=== PATIENT | female | born 1965 | race Caucasian/White ===

== ENCOUNTER 2016-09-26 16:04 | Emergency (ER) | payer OTHER ==
[2016-09-26] MEDS ORDERED: SODIUM CHLORIDE 0.9% 1000ML 1,000 ML IVS ONE (16:21)
--- NOTE | 2016-09-26 16:28 | ED.PDOC ---
History of Present Illness - General Source: patient Exam Limitations: no limitations - History of Present Illness Initial Comments: the patient is a 51-year-old female presenting to the emergency room secondary to nausea and vomiting and diarrhea since midnight last night. No fevers. She does have some abdominal pain that she believes is from the throwing up. No blood in the stool. Questionable bile in the vomitus. No blood in the stool. Severity: moderate Improving Factors: nothing Worsening Factors: nothing Associated Symptoms: malaise, nausea/vomiting <Narinder Carlos - Last Filed: 09/26/16 19:11> <Sherron Lee - Last Filed: 09/26/16 19:28> - General Time Seen by Provider: 09/26/16 16:20 - History of Present Illness Allergies/Adverse Reactions: Allergies Codeine Allergy (Unknown, Verified 02/04/16 19:58) Home Medications: Ambulatory Orders Klonopin 11/04/15 Lasix 11/04/15 Nexium 11/04/15 Seroquel 11/04/15 Amoxicillin & Pot Clavulanate [Augmentin Tab] 875 mg PO BID #14 tab 02/04/16 Ipratropium/Albuterol Inhaler [Combivent Respimat 20-100 Mcg/Act] 1 puff INH RTQID #1 inh 02/04/16 predniSONE [Prednisone] 20 mg PO DAILY #5 tab 02/04/16 Ondansetron [Zofran Odt] 4 mg PO Q8H PRN #10 tab 09/26/16 Review of Systems - Review of Systems Constitutional: States: malaise EENTM: States: no symptoms reported Respiratory: States: no symptoms reported Cardiology: States: no symptoms reported Gastrointestinal/Abdominal: States: see HPI Genitourinary: States: dysuria, frequency Musculoskeletal: States: no symptoms reported Skin: States: no symptoms reported Neurological: States: anxiety Endocrine: States: no symptoms reported All other Systems: No Change from Baseline <Narinder Carlos - Last Filed: 09/26/16 19:11> Past Medical History (General) - Patient Medical History Hx Seizures: Yes Hx Stroke: No Hx Dementia: No Hx Asthma: No Hx of COPD: No Hx Cardiac Disorders: Yes Hx Congestive Heart Failure: No Hx Pacemaker: No Hx Hypertension: No Hx Thyroid Disease: No Hx Diabetes: No Hx Gastroesophageal Reflux: Yes Hx Renal Disease: No Hx Cancer: No Hx of HIV: No Hx Hepatitis C: No Hx MRSA: No - Vaccination History Hx Tetanus, Diphtheria Vaccination: No Hx Influenza Vaccination: No Hx Pneumococcal Vaccination: No - Social History Hx Tobacco Use: Yes Hx Chewing Tobacco Use: No Hx Alcohol Use: No Hx Substance Use: No Hx Substance Use Treatment: No Hx Depression: Yes Hx Physical Abuse: No Hx Emotional Abuse: No Hx Suspected Abuse: No - Female History Patient : No <Narinder Carlos - Last Filed: 09/26/16 19:11> Family Medical History - Family History Mother Family History: Unknown <Narinder Carlos - Last Filed: 09/26/16 19:11> Physical Exam - Physical Exam General Appearance: Alert, No apparent distress, Other - disheveled Eye Exam: bilateral normal Ears, Nose, Throat: hearing grossly normal, normal ENT inspection - poor dentition Neck: non-tender, full range of motion, supple Respiratory: chest non-tender, lungs clear, normal breath sounds, no respiratory distress, no accessory muscle use Cardiovascular/Chest: normal peripheral pulses, regular rate, rhythm, no edema Peripheral Pulses: radial,right: 2+, radial,left: 2+, dorsalis pedis,right: 2+, dorsalis pedis,left: 2+ Gastrointestinal/Abdominal: other - see history of present illness. Bowel sounds are present. Rectal Exam: deferred Back Exam: normal inspection, no CVA tenderness, no vertebral tenderness Extremity: normal range of motion, non-tender, normal inspection, no pedal edema , normal capillary refill Neurologic: alert, oriented x 3 Skin Exam: normal color <Narinder Carlos - Last Filed: 09/26/16 19:11> Departure - Departure Time of Disposition: 19:12 <Narinder Carlos - Last Filed: 09/26/16 19:11> - Departure Time of Disposition: 19:26 Diet: bland diet <Sherron Lee - Last Filed: 09/26/16 19:28> - Departure Clinical Impression: Gastroenteritis Disposition: Discharge to Home or Self Care Condition: Fair Departure Forms: ED Discharge - Pt. Copy, Patient Portal Self Enrollment Instructions: Viral Gastroenteritis, DI for Viral Gastroenteritis -- Adult, Gastroenteritis Diet Referrals: LITA HAMMOND [Primary Care Provider] - 1-2 Weeks Prescriptions: Ondansetron [Zofran Odt] 4 mg PO Q8H PRN #10 tab PRN Reason: Nausea/Vomiting Home Medications: Ambulatory Orders Klonopin 11/04/15 Lasix 11/04/15 Nexium 11/04/15 Seroquel 11/04/15 Amoxicillin & Pot Clavulanate [Augmentin Tab] 875 mg PO BID #14 tab 02/04/16 Ipratropium/Albuterol Inhaler [Combivent Respimat 20-100 Mcg/Act] 1 puff INH RTQID #1 inh 02/04/16 predniSONE [Prednisone] 20 mg PO DAILY #5 tab 02/04/16 Ondansetron [Zofran Odt] 4 mg PO Q8H PRN #10 tab 09/26/16 Additional Instructions: Follow up with PCP if symptoms persist or ED if symptoms worsen. Stay well- hydrated.
[2016-09-26] MEDS ORDERED: ONDANSETRON ODT 8 MG TAB SL SCH (16:30)
--- NOTE | 2016-09-26 16:55 | RAD ---
PROCEDURE: Chest one view and abdomen three views Clinical History: abd pain, n/v Indication: Same as above Comparison: Chest x-ray done on 10/02/2015 Technique: 3.0 views of the abdomen and pelvis and 1.0 views of the chest were done. Findings: There is no gross evidence of free air in the abdomen or the pelvis . The small and large bowel gas pattern does not show any evidence of obstruction, ileus or bowel wall thickening. There is no visualization of radiopaque calculi in the outline of the urinary tract. There is no constipation. Surgical ruddy are seen in the pelvis There are no airspace infiltrates, pleural effusions or pneumothoraces. The cardiac mediastinal silhouette is unremarkable. Impression: There are no acute or significant findings in the chest, abdomen and pelvis Location of Interpretation: [id number] Electronically signed by: Liam Linton MD 09/26/2016 4:55 PM [employer]
--- NOTE | 2016-09-26 18:25 | CT ---
EXAM DESCRIPTION: CT Abdomen/Pelvis w/Contrast CLINICAL HISTORY: abd pain/n/v COMPARISON: None Available TECHNIQUE: Contiguous axial images of the abdomen and pelvis were obtained after the administration of intravenous contrast followed by reconstruction images. FINDINGS: Linear opacities within the lung bases may represent scar versus subsegmental atelectasis. Patient is status post cholecystectomy. Small amount of air within the biliary system not unusual after cholecystectomy. Nodular contour of the liver suggests underlying cirrhotic changes. Spleen measures approximately 14.5 cm in length. Appendix was not visualized with certainty, there is no pericecal inflammation. Calcifications within the pelvis compatible with phleboliths. Prominent fatty changes within the mucosa of the ascending colon/cecum suggests prior infectious or inflammatory process. The liver, spleen, pancreas and kidneys are otherwise within normal limits. There is no hydronephrosis or renal stones. Adrenal glands are within normal limits. Aorta is of normal caliber and tapering. There is no free fluid in the abdomen or pelvis. There is no bowel obstruction. There is no stranding of the mesenteric fat to suggest an inflammatory response. IMPRESSION: No acute intra-abdominal abnormality. Nodular contour of the hepatic parenchyma suggests underlying cirrhosis changes. Electronically signed by: Yuriy Raya MD 09/26/2016 6:24 PM [employer]
[2016-09-26 19:54] VITALS: BP 120/70; TEMP 99.1; O2SAT 99
== END 2016-09-26 19:55 | disposition home or self-care (01) ==
LOC: ER 16:04
DX: K52.9 Noninfective gastroenteritis and colitis, unspecified (principal); K21.9 Gastro-esophageal reflux disease without esophagitis; Z88.6 Allergy status to analgesic agent; Z79.899 Other long term (current) drug therapy; Z87.891 Personal history of nicotine dependence
CPT/HCPCS: 36415; 74020; 74177; 80053; 81001; 81025; 82150; 82550; 82553; 83605; 83690; 83880; 84484; 85025; 85610; 85730; 87502; J7030

== ENCOUNTER 2016-10-20 16:50 | Emergency (ER) | payer OTHER ==
[2016-10-20] MEDS ORDERED: MORPHINE SULFATE INJ 10 MG/ML VIAL IV ONE (17:00)
[2016-10-20] MEDS ORDERED: ONDANSETRON INJ 4 MG/2 ML VIAL IV ONE (17:00)
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
[2016-10-20] MEDS ORDERED: HYDROmorphone HCL INJ 2 MG/ML VIAL IV ONE (18:09)
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
[2016-10-20] MEDS ORDERED: SODIUM CHLORIDE 0.9% 1000ML 1,000 ML ONE (19:22)
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
[2016-10-20 19:42] VITALS: BP 143/83; TEMP 97.3; O2SAT 99
== END 2016-10-20 19:42 | disposition short-term general hospital (02) ==
LOC: ER 16:50
DX: S42.301A Unspecified fracture of shaft of humerus, right arm, initial encounter for closed fracture (principal); S52.301A Unspecified fracture of shaft of right radius, initial encounter for closed fracture; S52.201A Unspecified fracture of shaft of right ulna, initial encounter for closed fracture; S52.501A Unspecified fracture of the lower end of right radius, initial encounter for closed fracture; S00.83XA Contusion of other part of head, initial encounter; S00.81XA Abrasion of other part of head, initial encounter; I51.89 Other ill-defined heart diseases; K21.9 Gastro-esophageal reflux disease without esophagitis; Z79.899 Other long term (current) drug therapy; Z88.6 Allergy status to analgesic agent; Z87.891 Personal history of nicotine dependence; V49.50XA Passenger injured in collision with unspecified motor vehicles in traffic accident, initial encounter; Y92.410 Unspecified street and highway as the place of occurrence of the external cause
CPT/HCPCS: 70150; 72040; 72125; 73060; 73090; 73130; 80053; 81001; 85025; J1170; J2270; J2405; J7030

== ENCOUNTER 2016-11-05 23:17 | Emergency (ER) | payer OTHER ==
[2016-11-05 23:36] VITALS: TEMP 98.4
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
--- NOTE | 2016-11-06 00:46 | RAD ---
EXAM: Chest,1 View CLINICAL INDICATION: 51-year-old female with cough. TECHNIQUE: Single view, AP portable chest was obtained. COMPARISON: 02/04/2016. FINDINGS: Stable cardiac and mediastinal silhouette. Heart size is normal. Little volumes grossly clear without focal opacity, pneumothorax or pleural effusions. The visualized bones are within normal limits. IMPRESSION: No acute cardiopulmonary abnormalities. Electronically signed by: Shanice Nagy MD 11/06/2016 12:46 AM CDT
--- NOTE | 2016-11-06 01:14 | CT ---
EXAM DESCRIPTION: Lumbar Spine 11/06/2016 1:12 AM CDT CLINICAL HISTORY: 51 years, Female, pain COMPARISON: None TECHNIQUE: Volumetric CT acquisition was performed through the lumbar spine. Images in the axial, coronal, and sagittal planes were presented for interpretation. This exam was performed according to our departmental dose-optimization program, which includes automated exposure control, adjustment of the mA and/or kV according to patient size and/or use of iterative reconstruction technique. FINDINGS: There are 5 lumbar type vertebral bodies in normal anatomic alignment. There is no evidence of acute fracture or dislocation. There are no significant degenerative changes. At the L1/L2 level, there is normal disk space height, there is no significant canal or neuroforaminal narrowing. At the L2/L3 level, there is normal disk space height, there is no significant canal or neuroforaminal narrowing. At the L3/L4 level, there is normal disk space height, there is no significant canal or neuroforaminal narrowing. At the L4/L5 level, there is normal disk space height, there is no significant canal or neuroforaminal narrowing. At the L5/S1 level, there is normal disk space height, there is no significant canal or neuroforaminal narrowing. The paravertebral and prevertebral soft tissues are normal. The visualized soft tissue structures of the abdomen are normal. The visualized vasculature is normal. IMPRESSION: No acute fracture or dislocation of the lumbar spine. Electronically signed by: Antonio Ragsdale MD 11/06/2016 1:13 AM CDT
--- NOTE | 2016-11-06 01:31 | CT ---
EXAM DESCRIPTION: Pelvis11/06/2016 1:28 AM CDT CLINICAL HISTORY: 51 years, Female, fall COMPARISON: None. TECHNIQUE: Volumetric CT acquisition was performed through the pelvis. Images in the axial and coronal planes were presented for interpretation This exam was performed according to our departmental dose-optimization program, which includes automated exposure control, adjustment of the mA and/or kV according to patient size and/or use of iterative reconstruction technique. FINDINGS: There is no acute fracture or dislocation of the bony pelvis or proximal femurs. There is a moderate amount of free pelvic fluid in the pelvis best seen on axial image 29 above the level of the urinary bladder. Fluid has density characteristics of simple fluid. The visualized portions of the large and small bowel are normal in appearance. The bladder and rectum are normal in appearance. The uterus and ovaries are age-appropriate. The soft tissue structures of the abdominal wall are normal. The visualized vasculature is grossly normal in appearance.. Limited evaluation of the venous structures demonstrates no gross abnormalities. IMPRESSION: 1. No acute fracture or dislocation of the bony pelvis. 2. Moderate free pelvic fluid. Electronically signed by: Antonio Ragsdale MD 11/06/2016 1:30 AM CDT
[2016-11-06] MEDS ORDERED: PANTOPRAZOLE INJECTION 80 MG in SODIUM CHLORIDE 0.9% 100ML 80 ML IVPB ONE (03:03)
[2016-11-06] MEDS ORDERED: MINERAL OIL 133 ML BTTL PR ONE (03:04)
[2016-11-06] MEDS ORDERED: BISACODYL SUPPOSITORY 10 MG PR ONE (03:04)
[2016-11-06] MEDS ORDERED: PANTOPRAZOLE SODIUM IV 40 MG VIAL ONE (03:07)
[2016-11-06] MEDS ORDERED: SODIUM CHLORIDE 0.9% 100ML 100 ML IVPB ONE (03:08)
[2016-11-06 04:02] VITALS: O2SAT 95
[2016-11-06 05:14] VITALS: BP 132/76
== END 2016-11-06 05:05 | disposition short-term general hospital (02) ==
LOC: ER 23:17
DX: D50.0 Iron deficiency anemia secondary to blood loss (chronic) (principal); D69.6 Thrombocytopenia, unspecified; D70.9 Neutropenia, unspecified; R79.89 Other specified abnormal findings of blood chemistry; F31.9 Bipolar disorder, unspecified; Z88.6 Allergy status to analgesic agent; Z79.899 Other long term (current) drug therapy; Z87.891 Personal history of nicotine dependence; W01.198A Fall on same level from slipping, tripping and stumbling with subsequent striking against other object, initial encounter
CPT/HCPCS: 36415; 71010; 72131; 72192; 80053; 81001; 82270; 83880; 85025; 85379; J7050

== ENCOUNTER 2016-11-23 22:57 | Emergency (ER) | payer OTHER ==
[2016-11-23 23:31] VITALS: O2SAT 98
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
--- NOTE | 2016-11-24 01:22 | CT ---
EXAM: CT neck with contrast. INDICATION: Neck pain. TECHNIQUE: Contiguous axial CT images of the neck. Intravenous contrast: Present. DLP 349 mGy-cm. This exam was performed according to our departmental dose-optimization program, which includes automated exposure control, adjustment of the mA and/or kV according to patient size and/or use of iterative reconstruction technique. COMPARISON: None. FINDINGS: Glands: Thyroid: Unremarkable. Submandibular: Unremarkable. Parotid: Unremarkable. [place] tonsils: Unremarkable. Parapharyngeal fat: No displacement. Epiglottis: Unremarkable. Turbine Subassembler space: Unremarkable. Prevertebral space: No edema. Vascular structures: Unremarkable. Bones: Unremarkable. IMPRESSION: 1. Unremarkable CT of the neck. Electronically signed by: Ishan Connell MD 11/24/2016 1:21 AM CDT
[2016-11-24] MEDS ORDERED: KETOROLAC TROMETHAMINE INJ 30 MG/ML VIAL IV ONE (01:25)
[2016-11-24] MEDS ORDERED: ORPHENADRINE CITRATE 30 MG/ML AMP IV ONE (01:25)
[2016-11-24 02:03] VITALS: BP 137/64; TEMP 97.8
== END 2016-11-24 01:35 | disposition home or self-care (01) ==
LOC: ER 22:57
DX: M54.2 Cervicalgia (principal); M62.838 Other muscle spasm; K21.9 Gastro-esophageal reflux disease without esophagitis; Z88.6 Allergy status to analgesic agent; Z79.899 Other long term (current) drug therapy; Z87.891 Personal history of nicotine dependence
CPT/HCPCS: 36415; 70491; 72125; 82565; 84520; J1885; J2360

== ENCOUNTER 2016-11-26 09:36 | Emergency (ER) | payer OTHER ==
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
[2016-11-26 10:05] VITALS: TEMP 99.5; O2SAT 100
[2016-11-26 10:23] VITALS: BP 106/64
== END 2016-11-26 10:21 | disposition home or self-care (01) ==
LOC: ER 09:36
DX: S52.201D Unspecified fracture of shaft of right ulna, subsequent encounter for closed fracture with routine healing (principal); K21.9 Gastro-esophageal reflux disease without esophagitis; Z88.6 Allergy status to analgesic agent; Z87.891 Personal history of nicotine dependence; X58.XXXD Exposure to other specified factors, subsequent encounter

== ENCOUNTER 2017-03-01 20:51 | Emergency (ER) | payer OTHER ==
[2017-03-01 21:09] VITALS: TEMP 98.5
[2017-03-01] MEDS ORDERED: MORPHINE SULFATE INJ 10 MG/ML VIAL IM ONE (21:53)
[2017-03-01] MEDS ORDERED: ONDANSETRON ODT 8 MG TAB SL PRN (21:53)
--- NOTE | 2017-03-01 21:57 | ED.PDOC ---
History of Present Illness - General Chief Complaint: Upper Extremity Injury Stated Complaint: rt arm pain Time Seen by Provider: 03/01/17 21:52 Source: patient Exam Limitations: no limitations Additional Information: PT WITH HX ORIF TO RIGHT FOREARM. STATES IT'S NOT HEALING WELL. TRIED TO GET UP OFF TOILET TODAY AND SLIPPED, C/O SEVERE PAIN TO R FOREARM. - History of Present Illness Initial Comments: HAS APPT WITH ORTHO TOMORROW, STATES SHE COULD NOT WAIT. Occurred: just prior to arrival Pain - Upper Extremity: moderate: Forearm, right Improving Factors: nothing Worsening Factors: movement Allergies/Adverse Reactions: Allergies Codeine Allergy (Unknown, Verified 11/23/16 23:31) Home Medications: Ambulatory Orders Klonopin 11/04/15 Lasix 11/04/15 Nexium 11/04/15 Seroquel 11/04/15 Ipratropium/Albuterol Inhaler [Combivent Respimat 20-100 Mcg/Act] 1 puff INH RTQID #1 inh 02/04/16 Ondansetron [Zofran Odt] 4 mg PO Q8H PRN #10 tab 09/26/16 tiZANidine [Zanaflex] 4 mg PO TID PRN #30 tab 11/24/16 Review of Systems - Review of Systems Constitutional: Denies: chills, fever EENTM: States: no symptoms reported Musculoskeletal: States: other - PAIN TO R FOREARM. Denies: back pain, neck pain Skin: States: no symptoms reported Neurological: Denies: numbness, weakness Past Medical History (General) - Patient Medical History Hx Seizures: Yes Hx Stroke: No Hx Dementia: No Hx Asthma: No Hx of COPD: No Hx Cardiac Disorders: Yes Hx Congestive Heart Failure: No Hx Pacemaker: No Hx Hypertension: No Hx Thyroid Disease: No Hx Diabetes: No Hx Gastroesophageal Reflux: Yes Hx Renal Disease: No Hx Cancer: No Hx of HIV: No Hx Hepatitis C: No Hx MRSA: No Hx Other - free text: BIPOLAR Surgical History: Hysterectomy - Vaccination History Hx Tetanus, Diphtheria Vaccination: Yes Hx Influenza Vaccination: No Hx Pneumococcal Vaccination: No - Social History Hx Tobacco Use: Yes Hx Chewing Tobacco Use: No Hx Alcohol Use: No Hx Substance Use: No Hx Substance Use Treatment: No Hx Depression: No Hx Physical Abuse: No Hx Emotional Abuse: No Hx Suspected Abuse: No - Female History Patient is a Female of Child Bearing Age (10 -59 yrs old): No Patient : No Family Medical History - Family History Mother Family History: Unknown Hx Cardiac Disease: Yes - mom Hx Family;Other: bipolar disorder mom Physical Exam - Physical Exam General Appearance: Anxious, Obvious distress - DTP, Obese Eyes, Ears, Nose, Throat Exam: PERRL/EOMI, normal ENT inspection Back Exam: no vertebral tenderness Elbow/Forearm Exam: pain - FOREARM WITH SURGICAL INCISION VENTRAL SURFACE. TTP DISTAL FOREARM. NVI, NO DEFORMITY Wrist Exam: normal inspection, non-tender Hand Exam: normal inspection, non-tender 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, oriented x 3 Skin Exam: other - DIFFUSE PSORIASIS, NO ACUTE ABN Progress - EKG/XRAY/CT XRAY: forearm - ORIF. NO EVIDENCE FOR HARDWARE DISRUPTION. NO ACUTE FX. Departure - Departure Clinical Impression: Contusion of forearm, right Qualifiers: Encounter type: initial encounter Qualified Code(s): S50.11XA - Contusion of right forearm, initial encounter Time of Disposition: 22:24 Disposition: Discharge to Home or Self Care Condition: Good Departure Forms: ED Discharge - Pt. Copy, Patient Portal Self Enrollment Instructions: Contusion Referrals: LITA HAMMOND [Primary Care Provider] - 1-2 Weeks Home Medications: Ambulatory Orders Klonopin 11/04/15 Lasix 11/04/15 Nexium 11/04/15 Seroquel 11/04/15 Ipratropium/Albuterol Inhaler [Combivent Respimat 20-100 Mcg/Act] 1 puff INH RTQID #1 inh 02/04/16 Ondansetron [Zofran Odt] 4 mg PO Q8H PRN #10 tab 09/26/16 tiZANidine [Zanaflex] 4 mg PO TID PRN #30 tab 11/24/16
--- NOTE | 2017-03-01 22:19 | RAD ---
EXAM DESCRIPTION: Forearm,Right CLINICAL HISTORY: 51 years Female PAIN AFTER SLIPPING COMPARISON: None. TECHNIQUE: RIGHT forearm, two views FINDINGS: There is significant bony demineralization. There is plate and screw fixation of the midshaft of the radial and ulnar diaphyses as well as plate and screw fixation of the distal radius. Midshaft fractures are incompletely healed. No apparent complication of the hardware. IMPRESSION: Marked bony demineralization without evidence of acute fracture Previous ORIF of the radius and ulna. Midshaft fractures appears incompletely healed Electronically signed by: Joanne Navas 03/01/2017 10:18 PM CDT
[2017-03-01 22:33] VITALS: BP 133/79; O2SAT 94
== END 2017-03-01 22:34 | disposition home or self-care (01) ==
LOC: ER 20:51
DX: S50.11XA Contusion of right forearm, initial encounter (principal); Z88.6 Allergy status to analgesic agent; K21.9 Gastro-esophageal reflux disease without esophagitis; F31.9 Bipolar disorder, unspecified; I51.89 Other ill-defined heart diseases; Z87.891 Personal history of nicotine dependence; W18.11XA Fall from or off toilet without subsequent striking against object, initial encounter
CPT/HCPCS: 73090; J2270

== ENCOUNTER 2017-04-26 13:39 | Emergency (ER) | payer OTHER ==
[2017-04-26 13:53] VITALS: TEMP 97.8
[2017-04-26] MEDS ORDERED: MORPHINE SULFATE INJ 10 MG/ML VIAL IV ONE ×2 (14:06→16:03)
--- NOTE | 2017-04-26 14:10 | ED.PDOC ---
History of Present Illness - General Chief Complaint: Trauma Stated Complaint: fall Time Seen by Provider: 04/26/17 13:55 - History of Present Illness Initial Comments: PT IS ALLERGIC TO CODEINE BUT NOT TO MORPHINE OR OTHER OPIATES. PT FELL TODAY (SLIPPED, TRIPPED) AND LANDED ON RUE. PAIN IN R SHOULDER, ARM, ELBOW, WRIST. PT STATES SHE FRACTURED RUE 6 MOS AGO. Occurred: just prior to arrival Severity: severe Pain Location: upper extremity Method of Injury: fall Improving Factors: nothing Worsening Factors: movement Loss of Consciousness: no loss of consciousness Associated Symptoms (Fall): denies symptoms Allergies/Adverse Reactions: Allergies Codeine Allergy (Unknown, Verified 04/26/17 13:53) Home Medications: Ambulatory Orders Klonopin 11/04/15 Lasix 11/04/15 Nexium 11/04/15 Seroquel 11/04/15 Ipratropium/Albuterol Inhaler [Combivent Respimat 20-100 Mcg/Act] 1 puff INH RTQID #1 inh 02/04/16 Ondansetron [Zofran Odt] 4 mg PO Q8H PRN #10 tab 09/26/16 tiZANidine [Zanaflex] 4 mg PO TID PRN #30 tab 11/24/16 Review of Systems - Review of Systems Constitutional: States: no symptoms reported EENTM: States: no symptoms reported Respiratory: States: no symptoms reported Cardiology: States: no symptoms reported Gastrointestinal/Abdominal: States: no symptoms reported Genitourinary: States: no symptoms reported Musculoskeletal: States: joint pain. Denies: back pain, muscle pain, neck pain Skin: States: no symptoms reported Neurological: States: no symptoms reported. Denies: headache Endocrine: States: no symptoms reported Hematologic/Lymphatic: States: no symptoms reported All other Systems: Reviewed and Negative Past Medical History (General) - Patient Medical History Hx Seizures: Yes Hx Stroke: No Hx Dementia: No Hx Asthma: No Hx of COPD: No Hx Cardiac Disorders: Yes Hx Congestive Heart Failure: No Hx Pacemaker: No Hx Hypertension: No Hx Thyroid Disease: No Hx Diabetes: No Hx Gastroesophageal Reflux: Yes Hx Renal Disease: No Hx Cancer: No Hx of HIV: No Hx Hepatitis C: No Hx MRSA: No Surgical History: other - Vaccination History Hx Tetanus, Diphtheria Vaccination: Yes Hx Influenza Vaccination: No Hx Pneumococcal Vaccination: No - Social History Hx Tobacco Use: Yes Hx Chewing Tobacco Use: No Hx Alcohol Use: No Hx Substance Use: No Hx Substance Use Treatment: No Hx Depression: No Hx Physical Abuse: No Hx Emotional Abuse: No Hx Suspected Abuse: No - Female History Patient is a Female of Child Bearing Age (10 -59 yrs old): Yes Patient : No Family Medical History - Family History Mother Family History: Unknown Hx Cardiac Disease: Yes - mom Hx Family;Other: bipolar disorder mom Physical Exam - Physical Exam General Appearance: Alert, Other - UNCOMFORTABLE Head Injury: no evidence of injury Eye Exam: bilateral normal ENT Exam: hearing grossly normal, no evidence of ENT injury, no dental injury Neck Exam: non-tender, full range of motion, normal alignment, normal inspection Cardiovascular/Respiratory: regular rate, rhythm, no M/R/G Gastrointestinal/Abdominal: normal bowel sounds, non tender, soft Back Exam: no CVA tenderness, no vertebral tenderness Extremity Exam: pelvis stable, bony-point tenderness, pain with movement, other - RUE TTP AND PAINFUL MVMT IN SHOULDER, HUMERUS, ELBOW, WRIST. FOREARM AND HAND EXAM NL. Neurologic: ext js developer II-XII nml as tested, alert, normal mood/affect Skin Exam: normal color, warm/dry Progress - Progress Progress: 04/26/17 16:04 XRAYS NEG FOR ACUTE FRX. PT SAW HER ORTHE YESTERDAY(DR ESCALONA IN [place] ) AND PLAN WAS TO LEAVE MALUNION IS. 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 I SPOKE WITH PT AND HER FAMILY. THEY ARE GOING TO CALL DR ESCALONA TO INFORM HIM OF FALL BUT NO FRX. SHE HAS F/U APPT IN 3 MOS BUT WILL CALL IN 1 WEEK FOR SOONER F/U IF STILL HAVING PAIN. 04/26/17 16:07 Departure - Departure Clinical Impression: Contusion of bone, Arm pain Disposition: Discharge to Home or Self Care Condition: Good Departure Forms: ED Discharge - Pt. Copy, Patient Portal Self Enrollment Instructions: DI for Trauma Diet: resume usual diet Activity: increase activity as tolerated Referrals: LITA HAMMOND [Primary Care Provider] - 1-2 Weeks Home Medications: Ambulatory Orders Klonopin 11/04/15 Lasix 11/04/15 Nexium 11/04/15 Seroquel 11/04/15 Ipratropium/Albuterol Inhaler [Combivent Respimat 20-100 Mcg/Act] 1 puff INH RTQID #1 inh 02/04/16 Ondansetron [Zofran Odt] 4 mg PO Q8H PRN #10 tab 09/26/16 tiZANidine [Zanaflex] 4 mg PO TID PRN #30 tab 11/24/16 Additional Instructions: You did not break your arm. It is just badly bruised. Please take ibuprofen as needed for pain.
--- NOTE | 2017-04-26 14:40 | RAD ---
EXAM DESCRIPTION: Wrist,Right 2 Views CLINICAL HISTORY: FALL; PAIN IN R SHOULDER, ARM, ELBOW, WRIST. COMPARISON: October 20, 2016 IMPRESSION: 3 views of the right wrist show interval volar plate and screw fixation of the distal radius. No hardware failure or obvious loosening is seen. There is at least partial healed fracture of the distal radius. The osseous structures are diffusely osteopenic. Partly visualized plate and screw fixation of the mid ulna and radius is seen with question of nonunion of the radial fracture. There is a partly healed fracture at the base of the first metacarpal compared to previous exam. Electronically signed by: Samuel Mckeon MD 04/26/2017 2:39 PM CDT
--- NOTE | 2017-04-26 14:43 | RAD ---
EXAM DESCRIPTION: Elbow,Right 2 Views CLINICAL HISTORY: FALL; PAIN IN R SHOULDER, ARM, ELBOW, WRIST. COMPARISON: None Available. TECHNIQUE: Two views FINDINGS: Mild degenerative changes and moderate osteopenia of the elbow is present without fracture or dislocation. The mid forearm is internally fixed with sideplates with an incompletely healed fracture of the radial shaft and what appears to be a more completely healed fracture of the ulnar shaft. No elbow injury is identified and no joint effusion noted. IMPRESSION: 1. Osteopenia and degenerative changes of the elbow. Electronically signed by: Chencho Bates MD 04/26/2017 2:42 PM CDT
--- NOTE | 2017-04-26 15:11 | RAD ---
Two-view right humerus. Two-view right shoulder. Indication: FALL; PAIN IN R SHOULDER, ARM, ELBOW, WRIST. Comparison: None. Pression: A.C. and glenohumeral joint alignment grossly normal. Lateral downsloping acromion. Osteopenia. A subacute to chronic appearing largely ununited mid humeral shaft fracture noted with peripheral callus formation but central lucency and sclerotic fracture margins. There is malalignment/angulation of the fracture site but is difficult to characterize due to patient positioning. There appears to be ulnar deviation of the distal fracture fragment. Partial visualization of a radial shaft fracture status post ORIF but appears incompletely united. Electronically signed by: Derek Eric MD 04/26/2017 3:10 PM CDT
[2017-04-26 16:32] VITALS: BP 126/87; O2SAT 97
== END 2017-04-26 16:33 | disposition home or self-care (01) ==
LOC: ER 13:39
DX: M25.511 Pain in right shoulder (principal); Z87.891 Personal history of nicotine dependence; W01.0XXA Fall on same level from slipping, tripping and stumbling without subsequent striking against object, initial encounter; Y92.9 Unspecified place or not applicable
CPT/HCPCS: 73030; 73060; 73070; 73100; J2270

== ENCOUNTER 2017-09-10 11:29 | Emergency (ER) | payer OTHER, SELFPAY ==
[2017-09-10 11:34] VITALS: TEMP 97.9
--- NOTE | 2017-09-10 12:44 | ED.PDOC ---
History of Present Illness - General Chief Complaint: Trauma Stated Complaint: Fall, c/o R arm/L knee discomfort Time Seen by Provider: 09/10/17 12:24 Source: patient Exam Limitations: no limitations - History of Present Illness Initial Comments: Lucina Ngo 52 y/o female brought by EMS after falling off stairs -stating went to school watch her son play basketball then got up to use the rest room as she was going down the stairs she slipped /stumbled then rolled down the stairs head hitting the metal railing on landint to the floor.Stated helped by ems to get up on theier arrival.Schafer painful knot on forehead ,right arm and also achy on the sides of neck after the incident.No LOC,no blurry vision, no nausea/ vomiting nohip,chest wall or back pains. Occurred: just prior to arrival Severity: moderate Pain Location: head, neck, upper extremity - right forearm Method of Injury: fall Improving Factors: nothing Worsening Factors: movement Loss of Consciousness: no loss of consciousness Associated Symptoms (Fall): other - see hpi Allergies/Adverse Reactions: Allergies Codeine Allergy (Unknown, Verified 09/10/17 11:41) Home Medications: Ambulatory Orders Klonopin 11/04/15 Lasix 11/04/15 Nexium 11/04/15 Seroquel 11/04/15 Ipratropium/Albuterol Inhaler [Combivent Respimat 20-100 Mcg/Act] 1 puff INH RTQID #1 inh 02/04/16 Ondansetron [Zofran Odt] 4 mg PO Q8H PRN #10 tab 09/26/16 tiZANidine [Zanaflex] 4 mg PO TID PRN #30 tab 11/24/16 Review of Systems - Review of Systems Constitutional: States: no symptoms reported EENTM: States: no symptoms reported Respiratory: States: no symptoms reported Cardiology: States: no symptoms reported Gastrointestinal/Abdominal: States: no symptoms reported Genitourinary: States: no symptoms reported Musculoskeletal: States: see HPI Neurological: States: see HPI Endocrine: States: no symptoms reported All other Systems: Reviewed and Negative, No Change from Baseline Past Medical History (General) - Patient Medical History Hx Seizures: Yes Hx Stroke: No Hx Dementia: No Hx Asthma: No Hx of COPD: No Hx Cardiac Disorders: Yes Hx Congestive Heart Failure: No Hx Pacemaker: No Hx Hypertension: No Hx Thyroid Disease: No Hx Diabetes: No Hx Gastroesophageal Reflux: Yes Hx Renal Disease: No Hx Cancer: No Hx of HIV: No Hx Hepatitis C: No Hx MRSA: No Hx Other PMH: Yes - bipolar disorder,psoriaisis Surgical History: other - hysterectomy orif rue FX - Vaccination History Hx Tetanus, Diphtheria Vaccination: Yes Hx Influenza Vaccination: No Hx Pneumococcal Vaccination: No - Social History Hx Tobacco Use: Yes Hx Chewing Tobacco Use: No Hx Alcohol Use: No Hx Substance Use: No Hx Substance Use Treatment: No Hx Depression: No Hx Physical Abuse: No Hx Emotional Abuse: No Hx Suspected Abuse: No - Female History Patient : No Family Medical History - Family History Mother Family History: Unknown Hx Cardiac Disease: Yes - mom Hx Family;Other: bipolar disorder mom Physical Exam - Physical Exam General Appearance: Alert, Comfortable, No apparent distress Head Injury: swelling - forehead, other - ecchymosis forehead Eye Exam: bilateral normal ENT Exam: hearing grossly normal, no evidence of ENT injury, no dental injury Neck Exam: full range of motion, normal alignment, normal inspection, muscle spasm, paraspinous muscle tender Cardiovascular/Respiratory: regular rate, rhythm, no M/R/G, normal peripheral pulses, normal breath sounds Gastrointestinal/Abdominal: non tender, soft, no organomegaly Back Exam: no CVA tenderness, no vertebral tenderness Extremity Exam: no evidence of injury, normal range of motion, non-tender, no pedal edema, pelvis stable Neurologic: no motor/sensory deficits, alert, oriented x 3 Skin Exam: normal color, warm/dry - House Coma Score Best Eye Response (Scarlet): (4) open spontaneously Best Verbal Response (Scarlet): (5) oriented Best Motor Response (Scarlet): (6) obeys commands Scarlet Total: 15 Progress - Progress Progress: 09/10/17 12:48 Last Vital Signs Temp 97.9 F 09/10/17 11:32 Pulse 92 H 09/10/17 11:32 Resp 22 09/10/17 11:32 BP 130/79 09/10/17 11:32 Pulse Ox 97 09/10/17 11:32 - EKG/XRAY/CT XRAY: forearm - right soft tissue swelling CT Ordered: Yes - head/c- spine-no fracture no acute abnormality Departure - Departure Clinical Impression: Pain, neck Fall down stairs Qualifiers: Encounter type: initial encounter Qualified Code(s): W10.8XXA - Fall (on) (from ) other stairs and steps, initial encounter Traumatic hematoma of forehead Qualifiers: Encounter type: initial encounter Qualified Code(s): S00.83XA - Contusion of other part of head, initial encounter Traumatic hematoma of right forearm Qualifiers: Encounter type: initial encounter Qualified Code(s): S50.11XA - Contusion of right forearm, initial encounter Time of Disposition: 13:36 Disposition: Discharge to Home or Self Care Departure Forms: ED Discharge - Pt. Copy, Patient Portal Self Enrollment Instructions: DI for Hematoma (Bruise), DI for Contusion, Contusion Referrals: LITA HAMMOND [Primary Care Provider] - 1-2 Weeks Home Medications: Ambulatory Orders Klonopin 11/04/15 Lasix 11/04/15 Nexium 11/04/15 Seroquel 11/04/15 Ipratropium/Albuterol Inhaler [Combivent Respimat 20-100 Mcg/Act] 1 puff INH RTQID #1 inh 02/04/16 Ondansetron [Zofran Odt] 4 mg PO Q8H PRN #10 tab 09/26/16 tiZANidine [Zanaflex] 4 mg PO TID PRN #30 tab 11/24/16 Additional Instructions: Ice pack to affected area 20 minutes 3 x a day during waking hours only as needed until better;May take Tylenol 500 mg every 6 hours as needed for pain; Follow up with primary Md 2017 as needed
--- NOTE | 2017-09-10 13:19 | CT ---
Procedure: CT HEAD WITHOUT IV CONTRAST Exam Date: 09/10/2017 12:48 PM VETERINARY POULTRY INSPECTOR Ordering Provider: Mello Anguiano Clinical Indication: fall Comparison: None Technique: CT images of the head were obtained without contrast administration. Coronal and sagittal reformats were obtained. This exam was performed according to our departmental dose-optimization program which includes automated exposure control, adjustment of the mA and/or kV according to patient size and/or use of iterative reconstruction technique. Findings: There is no acute cortical infarction, hemorrhage, midline shift, mass effect, or hydrocephalus. There is a small right frontal scalp contusion. No adjacent fracture is present. The calvaria and skull base are unremarkable. Paranasal sinuses and mastoid air cells are well aerated. Impression: 1. No acute intracranial abnormality. 2. Right frontal scalp contusion without adjacent fracture. Procedure: CT CERVICAL SPINE WITHOUT IV contrast Exam Date: 09/10/2017 12:48 PM VETERINARY POULTRY INSPECTOR Ordering Provider: Mello Anguiano Clinical Indication: Neck pain after fall Comparison: None Technique: CT images of the cervical spine were obtained without intravenous contrast administration. Coronal and sagittal reformations were provided for further characterization. This exam was performed according to our departmental dose-optimization program which includes automated exposure control, adjustment of the mA and/or kV according to patient size and/or use of iterative reconstruction technique. Findings: Vertebral body heights are maintained. Alignment is normal The dens is intact. No evidence of fracture. No prevertebral soft tissue edema. Multilevel, multifactorial spondylosis is present without significant spinal canal stenosis. There is a 1.5 cm nodule in the right upper lobe. Impression: No CT evidence for acute cervical osseous injury. 1.5 cm nodule in the right upper lobe. Consider further assessment with outpatient/nonemergent CT of the chest to further assess this nodule and presence of additional nodules. Electronically signed by: Clay Kothari MD 09/10/2017 1:18 PM VETERINARY POULTRY INSPECTOR
--- NOTE | 2017-09-10 13:19 | CT ---
Procedure: CT HEAD WITHOUT IV CONTRAST Exam Date: 09/10/2017 12:48 PM CRYSTAL FLAT GRINDER Ordering Provider: Mello Anguiano Clinical Indication: fall Comparison: None Technique: CT images of the head were obtained without contrast administration. Coronal and sagittal reformats were obtained. This exam was performed according to our departmental dose-optimization program which includes automated exposure control, adjustment of the mA and/or kV according to patient size and/or use of iterative reconstruction technique. Findings: There is no acute cortical infarction, hemorrhage, midline shift, mass effect, or hydrocephalus. There is a small right frontal scalp contusion. No adjacent fracture is present. The calvaria and skull base are unremarkable. Paranasal sinuses and mastoid air cells are well aerated. Impression: 1. No acute intracranial abnormality. 2. Right frontal scalp contusion without adjacent fracture. Procedure: CT CERVICAL SPINE WITHOUT IV contrast Exam Date: 09/10/2017 12:48 PM CRYSTAL FLAT GRINDER Ordering Provider: Mello Anguiano Clinical Indication: Neck pain after fall Comparison: None Technique: CT images of the cervical spine were obtained without intravenous contrast administration. Coronal and sagittal reformations were provided for further characterization. This exam was performed according to our departmental dose-optimization program which includes automated exposure control, adjustment of the mA and/or kV according to patient size and/or use of iterative reconstruction technique. Findings: Vertebral body heights are maintained. Alignment is normal The dens is intact. No evidence of fracture. No prevertebral soft tissue edema. Multilevel, multifactorial spondylosis is present without significant spinal canal stenosis. There is a 1.5 cm nodule in the right upper lobe. Impression: No CT evidence for acute cervical osseous injury. 1.5 cm nodule in the right upper lobe. Consider further assessment with outpatient/nonemergent CT of the chest to further assess this nodule and presence of additional nodules. Electronically signed by: Clay Kothari MD 09/10/2017 1:18 PM CRYSTAL FLAT GR[employer]ER
--- NOTE | 2017-09-10 13:33 | RAD ---
Procedure: XR FOREARM 2 VIEWS . Right Exam Date: 09/10/2017 12:48 PM FIRE CONTROL OFFICER Ordering Provider: Mello Anguiano Clinical Indication: pain Comparison: None Findings: There is evidence of diffuse osteopenia. Plate and screw fixation is seen about the radius and ulna. No definite acute fracture or focal osseous destruction is present. There is soft tissue swelling about the ulnar aspect of the mid/distal forearm. IMPRESSION: No acute osseous abnormality. Postoperative changes in the radius and ulna. Soft tissue swelling about the ulnar aspect of the forearm. Electronically signed by: Clay Kothari MD 09/10/2017 1:32 PM FIRE CONTROL OFFICER
[2017-09-10 13:50] VITALS: BP 134/73; O2SAT 96
== END 2017-09-10 13:45 | disposition home or self-care (01) ==
LOC: ER 11:29
DX: S00.83XA Contusion of other part of head, initial encounter (principal); S50.11XA Contusion of right forearm, initial encounter; M54.2 Cervicalgia; F31.9 Bipolar disorder, unspecified; Z79.899 Other long term (current) drug therapy; W10.8XXA Fall (on) (from) other stairs and steps, initial encounter; Y92.39 Other specified sports and athletic area as the place of occurrence of the external cause

== ENCOUNTER 2017-11-09 13:26 | Emergency (ER) | payer OTHER ==
[2017-11-09 13:41] VITALS: TEMP 99.2
--- NOTE | 2017-11-09 13:55 | ED.PDOC ---
History of Present Illness - General Chief Complaint: GI Problem Stated Complaint: vomiting and diarrhea Time Seen by Provider: 11/09/17 13:40 Information Source: patient, RN notes reviewed Exam Limitations: no limitations - History of Present Illness Initial Comments: THIS PATIENT HAS A TWO DAY HISTOY OF VOMITING AND DIARRHEA AND ABDOMINAL PAIN. SHE VOICES THAT SHE HAS NOT URINATED IN TWO DAYS. SHE ALSO DISCLOSES THAT SHE IS A PSYCHIATRIC PATIENT ON [facility]. THE PAIN TO THE ABDOMEN IS DIFFUSE SHARP AND RATED AT 10/10. DENIES ANY FEVER. Abdominal Pain Onset Location: generalized abdomen Pain Radiation: no radiation Quality: severe Timing/Duration: days - TWO DAYS Improving Factors: nothing Worsening Factors: nothing Associated Symptoms: diarrhea, nausea/vomiting Review of Systems - Review of Systems Constitutional: States: weakness EENTM: States: no symptoms reported Respiratory: States: no symptoms reported Cardiology: States: no symptoms reported Gastrointestinal/Abdominal: States: abdominal pain, diarrhea, nausea, vomiting Genitourinary: States: no symptoms reported Musculoskeletal: States: no symptoms reported Skin: States: no symptoms reported Neurological: States: no symptoms reported Endocrine: States: no symptoms reported Hematologic/Lymphatic: States: no symptoms reported All other Systems: Reviewed and Negative, No Change from Baseline Past Medical History (General) - Patient Medical History Hx Seizures: Yes Hx Stroke: No Hx Dementia: No Hx Asthma: No Hx of COPD: No Hx Cardiac Disorders: Yes Hx Congestive Heart Failure: No Hx Pacemaker: No Hx Hypertension: No Hx Thyroid Disease: No Hx Diabetes: No Hx Gastroesophageal Reflux: Yes Hx Renal Disease: No Hx Cancer: No Hx of HIV: No Hx Hepatitis C: No Hx MRSA: No Hx Other - free text: BIPOLAR DISEASE, PERSONALITY DISORDER, SCHIZO AFFECTIVE DISEASE Surgical History: Hysterectomy, other - Vaccination History Hx Tetanus, Diphtheria Vaccination: Yes Hx Influenza Vaccination: No Hx Pneumococcal Vaccination: No - Social History Hx Tobacco Use: Yes Hx Chewing Tobacco Use: No Hx Alcohol Use: No Hx Substance Use: No Hx Substance Use Treatment: No Hx Depression: No Hx Physical Abuse: No Hx Emotional Abuse: No Hx Suspected Abuse: No - Female History Patient : No Family Medical History - Family History Mother Family History: Unknown Hx Cardiac Disease: Yes - mom Hx Family;Other: bipolar disorder mom Physical Exam - Physical Exam General Appearance: Anxious, Unkempt Eyes, Ears, Nose, Throat Exam: PERRL/EOMI, normal ENT inspection Neck: non-tender, full range of motion, supple, normal inspection Respiratory: chest non-tender, lungs clear, normal breath sounds, no respiratory distress, no accessory muscle use Cardiovascular/Chest: normal peripheral pulses, regular rate, rhythm, no edema, no gallop, no JVD, no murmur Peripheral Pulses: No deficit Gastrointestinal/Abdominal: normal bowel sounds, soft, no organomegaly, no pulsatile mass, other - THE ABDOMEN ID DIFFUSELY TENDER ON ALL QUADRANTS, NO GUARDIN AND NO REBOUND TENDERNESS NOTED. Progress - Results/Orders Results/Orders: CT ABDOMEN IS REPORTED NO ACUTE PROCESS. THE WBC AND PLATLETS AND LOW. WBC OF 2.2, PLATELETS OF 80,000 Departure - Departure Clinical Impression: Gastroenteritis, Viral illness Time of Disposition: 17:27 Disposition: Discharge to Home or Self Care Condition: Fair Departure Forms: ED Discharge - Pt. Copy, Patient Portal Self Enrollment Instructions: DI for Gastritis Diet: full liquid diet Referrals: LITA HAMMOND [Primary Care Provider] - 1-2 Weeks Prescriptions: Dicyclomine HCl [Bentyl] 20 mg PO Q6HR #15 tab Ondansetron Tab [Zofran Tab] 4 mg PO Q8HR #6 tab Home Medications: Ambulatory Orders Klonopin 11/04/15 Lasix 11/04/15 Nexium 11/04/15 Seroquel 11/04/15 Ipratropium/Albuterol Inhaler [Combivent Respimat 20-100 Mcg/Act] 1 puff INH RTQID #1 inh 02/04/16 Ondansetron [Zofran Odt] 4 mg PO Q8H PRN #10 tab 09/26/16 tiZANidine [Zanaflex] 4 mg PO TID PRN #30 tab 11/24/16 Dicyclomine HCl [Bentyl] 20 mg PO Q6HR #15 tab 11/09/17 Ondansetron Tab [Zofran Tab] 4 mg PO Q8HR #6 tab 11/09/17 Comments: THROMBOCYTOPENIA, LEUKOPENIA BELIEVED TO BE VIRAL IN ORIGIN
[2017-11-09] MEDS: ONDANSETRON INJ 4 MG/2 ML VIAL IV ONE (14:11)
[2017-11-09] MEDS: SODIUM CHLORIDE 0.9% 1000ML 1,000 ML IVS ONE (14:11)
[2017-11-09] MEDS ORDERED: cefTRIAXone SODIUM 1 GM VIAL ONE (15:17)
[2017-11-09] MEDS ORDERED: SODIUM CHL 0.9% 50ML MIN-BAG+ 50 ML IVPB ONE (15:18)
[2017-11-09] MEDS: POTASSIUM CHLORIDE ELIXIR 20 MEQ/15 ML UD PO ONE (15:20)
[2017-11-09] MEDS: cefTRIAXone SODIUM 1 GM in SODIUM CHL 0.9% 50ML MIN-BAG+ 50 ML IVPB ONE (15:21)
[2017-11-09] MEDS: MORPHINE SULFATE INJ 10 MG/ML VIAL IV ONE (15:27)
--- NOTE | 2017-11-09 16:19 | CT ---
EXAM DESCRIPTION: Abdomen/Pelvis w/Contrast CLINICAL HISTORY: DIFFUSE ABDOMINAL PAIN COMPARISON: September 26, 2016 TECHNIQUE: Postcontrast CT images of the abdomen and pelvis are obtained using standard imaging protocol. This exam was performed according to our departmental dose-optimization program, which includes automated exposure control, adjustment of the mA and/or kV according to patient size and/or use of iterative reconstruction technique . FINDINGS: Visualized lung bases are unremarkable. Moderate diffuse nodular appearance to the liver capsule seen. The liver is small measuring 14.7 cm. No enhancing hepatic mass is identified. The spleen is enlarged measuring 14.9 x 16 cm. Enlargement of the main portal vein measuring 2 cm is again seen as well. Splenorenal shunting seen. The pancreas and adrenal glands are unremarkable. The gallbladder is contracted. Cholecystectomy changes are seen. There remains air in the biliary system likely related to sphincterotomy. Air-filled distention of the second portion of the duodenum is seen. Abdominal vasculature shows mild atherosclerotic disease. Kidneys show no nephrolithiasis. No ureteral calcification or obstruction. Urinary bladder is contracted and not well evaluated. Uterus is unremarkable. Surgical clips in the left adnexal region are seen. The right ovary is not identified. The appendix is not definitely identified. No secondary signs of acute appendicitis are seen. No small bowel obstruction or bowel wall thickening is seen. Colon is unremarkable. No significant diverticular disease. Air and fluid is seen throughout the colon. Osseous structures show no aggressive bony lesions. IMPRESSION: Nodular appearance to the liver capsule consistent with cirrhosis Splenomegaly and evidence of portal hypertension is again seen. No significant ascites. No acute findings on CT of the abdomen and pelvis. Electronically signed by: Samuel Mckeon MD 11/09/2017 4:17 PM CDT
[2017-11-09 17:44] VITALS: BP 110/70; O2SAT 94
== END 2017-11-09 17:45 | disposition home or self-care (01) ==
LOC: ER 13:26
DX: A08.4 Viral intestinal infection, unspecified (principal); K21.9 Gastro-esophageal reflux disease without esophagitis; F31.9 Bipolar disorder, unspecified; F25.9 Schizoaffective disorder, unspecified; Z79.899 Other long term (current) drug therapy
CPT/HCPCS: 36415; 74177; 80053; 81001; 83690; 85025; 87086; J0696; J2270; J2405; J7030; J7050

== ENCOUNTER 2018-05-22 20:26 | Observation (INO) | payer OTHER ==
--- NOTE | 2018-05-22 21:55 | RAD ---
PROCEDURE: XR CHEST 1 VIEW HISTORY: LLE edema COMPARISON: 11/06/2016 TECHNIQUE: Single projection of the chest was done. FINDINGS: The lung savage are well inflated . There are no discrete airspace infiltrates, pneumothoraces or pleural effusions. The pulmonary vascularity is normal. The cardiomediastinal silhouette is unremarkable for patient's age and sex. IMPRESSION: There is no acute pleural-parenchymal process seen in the imaged lung savage. Location of Interpretation: Teleradiology Electronically signed by: Liam Linton MD 05/22/2018 9:54 PM CDT Workstation: [id number]
[2018-05-22] MEDS ORDERED: FUROSEMIDE 40 MG TAB PO ONE (22:56)
--- NOTE | 2018-05-22 22:58 | ED.PDOC ---
History of Present Illness - General Chief Complaint: Skin/Abrasion/Tear Stated Complaint: left leg skin swelling with lesions Time Seen by Provider: 05/22/18 20:56 Source: patient, family - History of Present Illness Initial Comments: the patient is a 53-year-old female presenting to the emergency room secondary to increased swelling of bilateral lower extremities with the left significantly greater than the right. She does have a history of some chronic edema and does take Lasix daily. She has a history of significant psoriasis which is diffuse at this point. No shortness of breath no chest pain or palpitations. No fevers. 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 She has been ultrasounded before for a DVT in that leg that was negative.swelling has been present for more than a week. The patient does have a long-term history of low white blood cell count and low platelets of an uncertain cause. Her primary care doctors are in the middle of getting her set up with a tie worker. Timing/Duration: unsure Severity: moderate Improving Factors: nothing Worsening Factors: nothing Associated Symptoms: denies symptoms Allergies/Adverse Reactions: Allergies Codeine Allergy (Unknown, Verified 05/22/18 21:34) Home Medications: Ambulatory Orders Klonopin 11/04/15 Lasix 11/04/15 Nexium 11/04/15 Seroquel 11/04/15 Ipratropium/Albuterol Inhaler [Combivent Respimat 20-100 Mcg/Act] 1 puff INH RTQID #1 inh 02/04/16 Ondansetron [Zofran Odt] 4 mg PO Q8H PRN #10 tab 09/26/16 tiZANidine [Zanaflex] 4 mg PO TID PRN #30 tab 11/24/16 Dicyclomine HCl [Bentyl] 20 mg PO Q6HR #15 tab 11/09/17 Ondansetron Tab [Zofran Tab] 4 mg PO Q8HR #6 tab 11/09/17 Review of Systems - Review of Systems Constitutional: States: no symptoms reported EENTM: States: no symptoms reported Respiratory: States: no symptoms reported Cardiology: States: no symptoms reported Gastrointestinal/Abdominal: States: no symptoms reported Genitourinary: States: no symptoms reported Musculoskeletal: States: see HPI Skin: States: see HPI Neurological: States: no symptoms reported Endocrine: States: no symptoms reported All other Systems: No Change from Baseline Past Medical History (General) - Patient Medical History Hx Seizures: Yes Hx Stroke: No Hx Dementia: No Hx Asthma: No Hx of COPD: No Hx Cardiac Disorders: Yes Hx Congestive Heart Failure: No Hx Pacemaker: No Hx Hypertension: No Hx Thyroid Disease: No Hx Diabetes: No Hx Gastroesophageal Reflux: Yes Hx Renal Disease: No Hx Cancer: No Hx of HIV: No Hx Hepatitis C: No Hx MRSA: No - Vaccination History Hx Tetanus, Diphtheria Vaccination: No Hx Influenza Vaccination: No Hx Pneumococcal Vaccination: No - Social History Hx Tobacco Use: Yes Hx Chewing Tobacco Use: No Hx Alcohol Use: No Hx Substance Use: No Hx Substance Use Treatment: No Hx Depression: No Hx Physical Abuse: No Hx Emotional Abuse: No Hx Suspected Abuse: No - Female History Patient : No Family Medical History - Family History Mother Family History: Unknown Hx Cardiac Disease: Yes - mom Hx Family;Other: bipolar disorder mom Physical Exam - Physical Exam General Appearance: Alert, Anxious, No apparent distress Eye Exam: bilateral normal Ears, Nose, Throat: hearing grossly normal, other - very poor dentition Neck: full range of motion, supple Respiratory: lungs clear, normal breath sounds, no respiratory distress, no accessory muscle use Cardiovascular/Chest: normal peripheral pulses, regular rate, rhythm, no edema Peripheral Pulses: radial,right: 2+, radial,left: 2+, dorsalis pedis,right: 2+, dorsalis pedis,left: 2+, posterior tibialis,right: 2+, posterior tibialis,left: 2+ Gastrointestinal/Abdominal: non tender, soft, other - obese Rectal Exam: deferred Back Exam: no CVA tenderness, no vertebral tenderness Extremity: normal range of motion, other - the patient has 3+ edema to left lower extremity and 1+ edema to the right lower extremity. She is tender to palpation everywhere on the left lower extremity. There is no definite palpable cords. Pain is not isolated to the posterior. Pain does not localize with dorsiflexion of the foot to the posterior calf. Neurologic: cashier self service gasoline II-XII nml as tested, alert, normal mood/affect, oriented x 3 Skin Exam: normal color Comments: Vital Signs - 24 hr 05/22/18 21:07 Temperature 98.6 F Pulse Rate [ 75 monitor] Respiratory 16 Rate Blood Pressure 102/73 [Left Arm] O2 Sat by Pulse 99 Oximetry Progress - Progress Progress: 05/22/18 23:02 the patient is a 53-year-old female presenting to emergency room with increasing lower extremity edema primarily on the left. There does not appear to be any significant superimposed infection. Renal function appears adequate. No evidence of significant cardiac strain. Concern here is for the possibility of a deep venous thrombosis. the patient may also simply be having increase in fluid retention or gradual decreased venous return from a possibly enlarging Husain's cyst. That should show up on the ultrasound. The patient will return in the morning for a left lower extremity venous Doppler, as this is not a service offered here at nighttime. If it is positive then a discussion will need to be had with hematology as to which blood thinner to use given her chronic low platelet levels. There is no clinical evidence of any pulmonary embolus. Vital signs are stable. if the ultrasound is negative then she will continue to double her Lasix for the next 3 days. She needs to follow back up with her primary care doctor before the end of the week as well for reevaluation. The patient has been instructed to use Emanuel wraps to help reduce the edema. These need to be adjusted at least every 4 hours to prevent constriction bands. An alternative would be for her to buy a pair of compression stockings. 05/22/18 23:15 after further discussion with the patient and family, the patient will be admitted overnight for observation and get the ultrasound performed in the morning while in observation. She has been given an aspirin. No other blood thinners have been given to this point. - Results/Orders Results/Orders: chest x-ray shows no evidence of infiltrate or cardiomegaly or fluid overload. Laboratory Tests 05/22/18 05/22/18 05/22/18 21:25 21:25 21:53 WBC RBC Hgb Hct MCV MCH MCHC RDW Plt Count MPV Absolute Neuts (auto) Absolute Lymphs (auto) Absolute Monos (auto) Absolute Eos (auto) Absolute Basos (auto) Neutrophils % Lymphocytes % Monocytes % Eosinophils % Basophils % PT INR PTT (SP) D-Dimer, Quantitative Sodium 137 Potassium 3.6 Chloride 103 Carbon Dioxide 27 Anion Gap 10.6 L BUN 8 Creatinine 0.56 L BUN/Creatinine Ratio 14.3 Random Glucose 92 Serum Osmolality 271.8 L Calcium 9.0 Total Bilirubin 0.7 AST 32 ALT 21 Alkaline Phosphatase 136 H Creatine Kinase 118 CK-MB (CK-2) 1.2 CK-MB (CK-2) % Not Reportable Troponin I < 0.02 B-Natriuretic Peptide 6.6 Serum Total Protein 6.9 Albumin 3.8 Globulin 3.1 Albumin/Globulin Ratio 1.2 TSH 2.00 Urine Color Yellow Urine Appearance Cloudy Urine pH 5.5 Ur Specific [place] >= 1.030 Urine Protein Negative Urine Glucose (UA) Negative Urine Ketones Negative Urine Blood Trace-intact H Urine Nitrite Negative Urine Bilirubin Negative Urine Urobilinogen 1.0 Ur Leukocyte Esterase Small H Urine RBC 1-3 Urine WBC 3-5 H Ur Epithelial Cells 10-20 Urine Bacteria Rare Urine HCG, Qual Negative 05/22/18 05/22/18 21:53 21:53 WBC 2.3 L* RBC 4.39 Hgb 14.5 Hct 42.6 MCV 97.1 MCH 33.0 H MCHC 34.0 RDW 13.7 Plt Count 49 L* MPV 10.1 Absolute Neuts (auto) 1.20 L Absolute Lymphs (auto) 0.80 L Absolute Monos (auto) 0.10 L Absolute Eos (auto) 0.10 Absolute Basos (auto) 0.00 Neutrophils % 52.5 Lymphocytes % 36.2 Monocytes % 6.3 Eosinophils % 4.0 Basophils % 1.0 PT 10.4 INR 1.04 PTT (SP) 26.1 D-Dimer, Quantitative 0.72 H* Sodium Potassium Chloride Carbon Dioxide Anion Gap BUN Creatinine BUN/Creatinine Ratio Random Glucose Serum Osmolality Calcium Total Bilirubin AST ALT Alkaline Phosphatase Creatine Kinase CK-MB (CK-2) CK-MB (CK-2) % Troponin I B-Natriuretic Peptide Serum Total Protein Albumin Globulin Albumin/Globulin Ratio TSH Urine Color Urine Appearance Urine pH Ur Specific [place] Urine Protein Urine Glucose (UA) Urine Ketones Urine Blood Urine Nitrite Urine Bilirubin Urine Urobilinogen Ur Leukocyte Esterase Urine RBC Urine WBC Ur Epithelial Cells Urine Bacteria Urine HCG, Qual Departure - Departure Clinical Impression: Peripheral edema, Chronic idiopathic thrombocytopenia Disposition: Admit Patient Condition: Fair Home Medications: Ambulatory Orders Klonopin 11/04/15 Lasix 11/04/15 Nexium 11/04/15 Seroquel 11/04/15 Ipratropium/Albuterol Inhaler [Combivent Respimat 20-100 Mcg/Act] 1 puff INH RTQID #1 inh 02/04/16 Ondansetron [Zofran Odt] 4 mg PO Q8H PRN #10 tab 09/26/16 tiZANidine [Zanaflex] 4 mg PO TID PRN #30 tab 11/24/16 Dicyclomine HCl [Bentyl] 20 mg PO Q6HR #15 tab 11/09/17 Ondansetron Tab [Zofran Tab] 4 mg PO Q8HR #6 tab 11/09/17 Decision To Admit - Decistion To Admit Decision to Admit Reason: Medical Nature Decision to Admit Date: 05/22/18 Decision to Admit Time: 23:16
[2018-05-22] MEDS ORDERED: ASPIRIN TABLET 325 MG TAB PO ONE (23:13)
[2018-05-23] MEDS ORDERED: ACETAMINOPHEN 325 MG TAB PO PRN (02:02)
[2018-05-23] MEDS ORDERED: SODIUM CHLORIDE 0.9% (FLUSH) 10 ML SYG IV PRN (02:02)
[2018-05-23] MEDS ORDERED: IV SET AND CAP CHANGE INJ INJ SCH (02:30)
[2018-05-23 07:05] VITALS: BP 119/77; TEMP 98.1
[2018-05-23 07:41] VITALS: O2SAT 95
--- NOTE | 2018-05-23 10:13 | US ---
EXAM DESCRIPTION: Venous,Lower Extremity LT: ULTRASOUND. CLINICAL HISTORY: r/o DVT COMPARISON: None Available. TECHNIQUE: Farnsworth-scale and doppler sonographic evaluation of the deep venous system of the left lower extremity. FINDINGS: Doppler evaluation shows normal color flow and normal phasicity and augmentation of the left common femoral vein, femoral vein, popliteal vein, greater saphenous vein, peroneal, and posterior tibial vein. The left lower extremity deep veins showed normal occlusion with transducer pressure. Farnsworth-scale survey showed no echogenic thrombus within these veins. IMPRESSION: 1. Duplex ultrasound evaluation of the left lower extremity deep venous system showing no evidence of thrombosis. Electronically signed by: Sadiq Gray MD 05/23/2018 10:12 AM CDT
--- NOTE | 2018-05-23 10:16 | US ---
EXAM DESCRIPTION: Venous,Lower Extremity RT: ULTRASOUND. CLINICAL HISTORY: r/o DVT COMPARISON: None Available. TECHNIQUE: Farnsworth-scale and doppler sonographic evaluation of the deep venous system of the right lower extremity. FINDINGS: Doppler evaluation shows normal color flow and normal phasicity and augmentation of the right common femoral vein, femoral vein, popliteal vein, greater saphenous vein, peroneal, and posterior tibial vein. The right lower extremity deep veins showed normal occlusion with transducer pressure. Farnsworth-scale survey showed no echogenic thrombus within these veins. IMPRESSION: 1. Duplex ultrasound evaluation of the right lower extremity deep venous system showing no evidence of thrombosis. Electronically signed by: Sadiq Gray MD 05/23/2018 10:15 AM CDT
--- NOTE | 2018-05-23 12:02 | SSS ---
SUPERVISING PHYSICIAN: Nicole Hendrix MD DATE OF ADMISSION: 05/23/18 DATE OF DISCHARGE: 05/23/18 DISCHARGE DIAGNOSIS: 1. Left lower extremity edema that is +3 with concerns for deep venous thrombosis. 2. Urinary tract infection. 3. Bipolar disorder. 4. Leukopenia and thrombocytopenia, currently awaiting evaluation by hematology. 5. Chronic tobacco abuse. 6. Gastroesophageal reflux disease. 7. History of seizures. 8. History of psoriasis. CHIEF COMPLAINT: Left lower leg swelling. HISTORY OF PRESENT ILLNESS: This is a 53-year-old, female who came to the Emergency Room with complaints of swelling to her left lower extremity. Her left leg is significantly larger than her right leg. She has a history of some chronic edema and takes Lasix daily. She also has a history of psoriasis as well as bipolar disorder. She had no complaints of shortness of breath or chest pain in the Emergency Room, no palpitations or fevers. She did have some complaints of pain that left lower leg as well as swelling that has been going on for about a week. There was no ultrasound available in the Emergency Room last night, so she was placed in the hospital for Observation until she could have an ultrasound done this morning. She also has a long history of leukopenia as well as thrombocytopenia. In the Emergency Room, her laboratories showed a WBC 2.3, hemoglobin 14.5, hematocrit 42.6. Platelet count 49. Sodium 137, potassium 3.6, chloride 103, carbon dioxide 27, BUN 8, creatinine 0.56, serum osmolality 271, calcium 9. Alkaline phosphatase 136, but the remainder of her liver enzymes were negative. On urinalysis, she had a trace of urine blood as well as small amount of leukocyte esterase and 3 to 5 urine WBCs. Her primary care physician, Dr. Sadiq Davis, is presently in the process of getting her referred to a dimensional inspector due to her leukopenia as well as her thrombocytopenia. The patient was placed in Observation. PAST MEDICAL HISTORY: 1. Thrombocytopenia. 2. Leukopenia. 3. 37 plus years of tobacco abuse. 4. Gastroesophageal reflux disease. 5. Unknown cardiac disease, presently on Lasix. 6. Bipolar disorder. 7. Osteoarthritis. 8. History of seizures. 9. History of psoriasis. PAST SURGICAL HISTORY: Difficult to obtain due to the patient's mental status. OUTPATIENT MEDICATIONS: 1. Klonopin. 2. Lasix. 3. Nexium. 4. Seroquel. 5. Combivent inhaler. 6. Zofran. 7. Zanaflex. 8. Bentyl. ALLERGIES: CODEINE. SOCIAL HISTORY: She lives in [place]. She is . She has been smoking one pack of cigarettes daily for about 37 years. She denies any ETOH or illicit drug use. REVIEW OF SYSTEMS: Difficult to obtain due the patient's mental status. PHYSICAL EXAMINATION: VITAL SIGNS: Afebrile. Heart rate 67. Blood pressure 119/77. Respiratory rate 18. O2 saturation 100% on room air. GENERAL: This is a 53-year-old female patient who is sitting up in her hospital bed. She is very anxious and agitated. She continues to say she wants to go home. HEENT: Normocephalic, atraumatic. Pupils are equal and reactive. Oropharynx is clear. She has very poor dentition. NECK: Supple without mass. RESPIRATORY: Essentially clear to auscultation bilaterally. CHEST: There is equal rise and fall of the chest with inspiration and expiration. CARDIOVASCULAR: Regular rate and rhythm. GASTROINTESTINAL: Abdomen is soft, nondistended, nontender. Bowel sounds are positive. EXTREMITIES: She has +3 pedal edema to her left lower extremity, a trace of pedal edema to her right lower extremity. She is very tender to palpation on her left foot and lower leg. Bilateral pedal pulses are +2. NEUROLOGIC: Awake and alert. She has a difficult time answering simple questions as she is very agitated and anxious. Her does help with some simple answers to questions. She is oriented to person and place. LABORATORY: Labs are as per history of present illness. She does have a urine culture pending. Her bilateral lower extremity ultrasound shows evidence of deep venous thrombosis. Chest x-ray from the Emergency Room shows no acute pleural parenchymal process seen. All other labs and films have been reviewed via the EMR. DISCHARGE PLAN: The patient will be discharged home in stable condition. She is to followup with her primary care physician, Dr. Sadiq Davis, on Tuesday at 9 :30 in the morning. I have had her continue her home medications as previously ordered plus I have given her Bactrim for her urinary tract infection. She has had no shortness of breath or wheezing. At this point I have instructed her to return to the hospital for any further problems or complications or she can followup with Dr. Davis' office. I have also encouraged her to keep her appointment with hematology in regards to her leukopenia and thrombocytopenia. She is to resume her previous activity as well as her diet. #[id number] MTDD
== END 2018-05-23 10:35 | disposition home or self-care (01) ==
LOC: ER 20:26 → MS 23:46 → INTOOBSV 23:46
PROVIDERS: ADMIT Nurse Practitioner Family; ATTEND Nurse Practitioner Family
DX: R60.0 Localized edema (principal); N39.0 Urinary tract infection, site not specified; F31.9 Bipolar disorder, unspecified; D72.819 Decreased white blood cell count, unspecified; D69.3 Immune thrombocytopenic purpura; F17.210 Nicotine dependence, cigarettes, uncomplicated; K21.9 Gastro-esophageal reflux disease without esophagitis; G40.909 Epilepsy, unspecified, not intractable, without status epilepticus; L40.9 Psoriasis, unspecified; I51.9 Heart disease, unspecified; M71.22 Synovial cyst of popliteal space [Baker], left knee; M19.90 Unspecified osteoarthritis, unspecified site; Z79.51 Long term (current) use of inhaled steroids; Z79.899 Other long term (current) drug therapy; Z88.6 Allergy status to analgesic agent
CPT/HCPCS: 85379; 82553; 80053; 87086; 81025; 36415; 81001; 85025; 82550; 85730; 85610; 84443; 84484; 83880; 71045; 93971 ×2; 94760 ×2; 99406; 99285; G0378

== ENCOUNTER → 2018-06-06 | Outpatient (CLI) | payer OTHER ==
--- NOTE | 2018-06-07 12:12 | MAM ---
EXAM DESCRIPTION: 3D Screening BILATERAL : Digital Mammography. CLINICAL HISTORY: 53 years Female SCREENING . No complaints. No personal or family history of breast cancer. Childbirth.. Postmenopausal. HRT less than 5 years ago.. Lifetime risk of developing breast cancer (Tyrer-Cuzick model)(%): 12.6. COMPARISON: 2-D digital screening bilateral mammography 09/13/2011. No prior reports available. TECHNIQUE: Bilateral CC and MLO projection full-field images, digital tomosynthesis mammographic technique. Bilateral digital 2-D full-field MLO images. CAD not available for tomosynthesis or 2-D images. FINDINGS: The breast parenchymal density pattern is: Almost entirely fatty. No skin thickening or nipple retraction. Bilateral vascular calcifications. Slight enlargement of well-circumscribed, intramammary lymph node at the 4:00 position of the middle third, lower outer quadrant left breast. No new focal, stellate mass or density, focal asymmetry , and no suspicious microcalcifications bilaterally. IMPRESSION: Benign exam. BIRAD CATEGORY: 2 BENIGN FINDINGS. RECOMMENDATIONS: FOLLOW UP: Routine digital bilateral mammographic screening, one year interval from May 2018. Written communication explaining the IMPRESSION and follow-up, will be mailed to the patient and referring health care provider. According to the [employer], yearly mammograms are recommended starting at age 40 and continuing as long as a woman is in good health. Any breast change noted on a breast self-exam should be reported promptly to the patient's healthcare provider. Breast MRI is recommended for women with an approximately 20-25% or greater lifetime risk of breast cancer, including women with a strong family history of breast or ovarian cancer and women who have been treated for Hodgkin's disease. A negative mammographic report should not delay tissue diagnosis in patients with significant clinical history or physical findings. Extremely dense breast tissue limits the sensitivity of digital mammography. Electronically signed by: Sadiq Gray MD 06/07/2018 12:11 PM [employer]
== END ==
LOC: MAMMO 10:30
PROVIDERS: ATTEND Family Medicine
DX: Z12.31 Encounter for screening mammogram for malignant neoplasm of breast (principal)

== ENCOUNTER 2018-09-19 20:19 | Emergency (ER) | payer OTHER ==
--- NOTE | 2018-09-19 21:29 | ED.PDOC ---
History of Present Illness - General Chief Complaint: Problem Stated Complaint: bleeding from private parts Time Seen by Provider: 09/19/18 21:01 Source: patient Exam Limitations: no limitations - History of Present Illness Initial Comments: Lucina Swan 53 y/o female stated she had burning pain on urination for the last 4 days and today noted blood on her urine and still sting when urinating with burning suprapubic pain.No fever ,no chills.Had also been constipated recently Timing/Duration: other - 4 days ago Quality: moderate, other - burning Onset Location: suprapubic Radiation: none Activites at Onset: none Prior abdominal problems: none Sexual intercourse history: not active, single partner Improving Factors: nothing Worsening Factors: nothing Associated Symptoms: other - dysuria Allergies/Adverse Reactions: Allergies Codeine Allergy (Unknown, Verified 05/22/18 21:34) Home Medications: Ambulatory Orders Klonopin 11/04/15 Lasix 11/04/15 Nexium 11/04/15 Seroquel 11/04/15 Ipratropium/Albuterol Inhaler [Combivent Respimat 20-100 Mcg/Act] 1 puff INH RTQID #1 inh 02/04/16 Ondansetron [Zofran Odt] 4 mg PO Q8H PRN #10 tab 09/26/16 Dicyclomine HCl [Bentyl] 20 mg PO Q6HR #15 tab 11/09/17 Sulfa/Trimeth 800/160 (Ds) Tab [Bactrim DS] 1 tablet PO BID #20 tab 05/23/18 Phenazopyridine HCl [Pyridium] 200 mg PO BID #10 tab 09/19/18 Sulfa/Trimeth 800/160 (Ds) Tab [Bactrim DS] 1 tablet PO BID 10 Days #20 tab 09/19/18 Review of Systems - Review of Systems Constitutional: States: no symptoms reported EENTM: States: no symptoms reported Respiratory: States: no symptoms reported Cardiology: States: no symptoms reported Musculoskeletal: States: see HPI Past Medical History (General) - Patient Medical History Hx Seizures: No Hx Stroke: No Hx Dementia: No Hx Asthma: No Hx of COPD: No Hx Cardiac Disorders: Yes Hx Congestive Heart Failure: No Hx Pacemaker: No Hx Hypertension: No Hx Thyroid Disease: No Hx Diabetes: No Hx Gastroesophageal Reflux: Yes Hx Renal Disease: No Hx Cancer: No Hx of HIV: No Hx Hepatitis C: No Hx MRSA: No Hx Other PMH: Yes - psoriasis,bipolar disorder Surgical History: other - oophorectomy;ORIF right shoulder fracture - Vaccination History Hx Tetanus, Diphtheria Vaccination: No Hx Influenza Vaccination: No Hx Pneumococcal Vaccination: No - Social History Hx Tobacco Use: Yes Hx Chewing Tobacco Use: No Hx Alcohol Use: No Hx Substance Use: No Hx Substance Use Treatment: No Hx Depression: No Hx Physical Abuse: No Hx Emotional Abuse: No Hx Suspected Abuse: No - Female History Patient : No Family Medical History - Family History Mother Family History: Unknown Hx Cardiac Disease: Yes - mom Hx Family;Other: bipolar disorder mom Physical Exam - Physical Exam General Appearance: Alert, Comfortable, No apparent distress Eyes, Ears, Nose, Throat Exam: normal ENT inspection Neck: non-tender, supple Cardiovascular/Respiratory: regular rate, rhythm, no M/R/G, normal peripheral pulses, normal breath sounds Gastrointestinal/Abdominal: soft, tenderness - suprapubic area,no peritoneal signs Rectal Exam: normal exam Back Exam: no CVA tenderness, no vertebral tenderness Extremity: no pedal edema, no calf tenderness Neurologic: alert, oriented x 3 Skin Exam: normal color, other - scaly maculopapular eruption-psoriasis legs;arms Progress - Progress Progress: 09/19/18 21:33 Vital Signs - 8 hr 09/19/18 20:35 Temperature 98.0 F Pulse Rate [ 75 Left] Respiratory 18 Rate Blood Pressure 134/71 [Right Arm] O2 Sat by Pulse 100 Oximetry - Results/Orders Results/Orders: 09/19/18 20:41 Urine Culture Stat 09/19/18 21:26 Urine Culture Urgent Laboratory Results - last 24 hr 09/19/18 20:41 Urine Color Yellow Urine Appearance Clear Urine pH 5.5 Ur Specific [place] >= 1.030 Urine Protein 100 H Urine Glucose (UA) 100 H Urine Ketones 15 H Urine Blood Negative Urine Nitrite Positive H Urine Bilirubin Moderate Urine Urobilinogen 1.0 Ur Leukocyte Esterase Negative Urine RBC 1-3 Urine WBC 5-10 H Ur Epithelial Cells 5-10 Urine Bacteria 1+ Departure - Departure Clinical Impression: Dysuria Urinary tract infection Qualifiers: Urinary tract infection type: acute cystitis Hematuria presence: without hematuria Qualified Code(s): N30.00 - Acute cystitis without hematuria Time of Disposition: 21:35 Disposition: Discharge to Home or Self Care Condition: Fair Departure Forms: ED Discharge - Pt. Copy, Patient Portal Self Enrollment Instructions: DI for Urinary Tract Infection (UTI) Referrals: LITA HAMMOND [Primary Care Provider] - 1-2 Weeks Prescriptions: Phenazopyridine HCl [Pyridium] 200 mg PO BID #10 tab Sulfa/Trimeth 800/160 (Ds) Tab [Bactrim DS] 1 tablet PO BID 10 Days #20 tab Home Medications: Ambulatory Orders Klonopin 11/04/15 Lasix 11/04/15 Nexium 11/04/15 Seroquel 11/04/15 Ipratropium/Albuterol Inhaler [Combivent Respimat 20-100 Mcg/Act] 1 puff INH RTQID #1 inh 02/04/16 Ondansetron [Zofran Odt] 4 mg PO Q8H PRN #10 tab 09/26/16 Dicyclomine HCl [Bentyl] 20 mg PO Q6HR #15 tab 11/09/17 Sulfa/Trimeth 800/160 (Ds) Tab [Bactrim DS] 1 tablet PO BID #20 tab 05/23/18 Phenazopyridine HCl [Pyridium] 200 mg PO BID #10 tab 09/19/18 Sulfa/Trimeth 800/160 (Ds) Tab [Bactrim DS] 1 tablet PO BID 10 Days #20 tab 09/19/18 Additional Instructions: Follow up with primary Md 21 Sep 2018 for recheck;Return to emergency room as needed
[2018-09-19] MEDS ORDERED: PHENAZOPYRIDINE HCL 200 MG TAB PO ONE (21:35)
[2018-09-19] MEDS ORDERED: traMADol HCL 50 MG TAB PO ONE (21:35)
[2018-09-19] MEDS ORDERED: NITROFURANTOIN MONOHYDRATE MAC 100 MG CAP PO ONE (21:35)
[2018-09-19 21:46] VITALS: BP 143/69; TEMP 98.2; O2SAT 95
== END 2018-09-19 21:46 | disposition home or self-care (01) ==
LOC: ER 20:19
DX: N30.00 Acute cystitis without hematuria (principal); I51.9 Heart disease, unspecified; K21.9 Gastro-esophageal reflux disease without esophagitis; F31.9 Bipolar disorder, unspecified; Z87.891 Personal history of nicotine dependence; Z79.899 Other long term (current) drug therapy; Z88.5 Allergy status to narcotic agent

== ENCOUNTER 2018-09-26 19:08 | Emergency (ER) | payer OTHER ==
[2018-09-26] MEDS ORDERED: ONDANSETRON ODT 8 MG TAB SL ONE (19:43)
--- NOTE | 2018-09-26 19:46 | ED.PDOC ---
History of Present Illness - General Chief Complaint: Respiratory Problem Stated Complaint: feels bad, runny nose Time Seen by Provider: 09/26/18 19:29 Source: patient Exam Limitations: no limitations - History of Present Illness Comments: Pt has had two day hx of cough, fever, congestion. Timing/Duration: getting worse Cough Quality/Degree: moderate, dry cough Possible Cause: occasional episodes Improving Factors: nothing Worsening Factors: nothing Associated Symptoms: cough, fever/chills, nasal congestion, shortness of breath Respiratory Risk Factors: no cause identified Allergies/Adverse Reactions: Allergies Codeine Allergy (Unknown, Verified 05/22/18 21:34) Home Medications: Ambulatory Orders Klonopin 11/04/15 Lasix 11/04/15 Nexium 11/04/15 Seroquel 11/04/15 Ipratropium/Albuterol Inhaler [Combivent Respimat 20-100 Mcg/Act] 1 puff INH RTQID #1 inh 02/04/16 Ondansetron [Zofran Odt] 4 mg PO Q8H PRN #10 tab 09/26/16 Dicyclomine HCl [Bentyl] 20 mg PO Q6HR #15 tab 11/09/17 Sulfa/Trimeth 800/160 (Ds) Tab [Bactrim DS] 1 tablet PO BID #20 tab 05/23/18 Phenazopyridine HCl [Pyridium] 200 mg PO BID #10 tab 09/19/18 Sulfa/Trimeth 800/160 (Ds) Tab [Bactrim DS] 1 tablet PO BID 10 Days #20 tab 09/19/18 Benzonatate Perles [Tessalon Perles] 100 mg PO TID PRN #30 cap 09/26/18 Dextromethorphan-Guaifenesin [Mucinex Dm Maximum Streng 60-1200 mg] 1 tab PO BID #20 tab 09/26/18 Review of Systems - Review of Systems Constitutional: States: fever, weakness EENTM: States: nose congestion. Denies: throat pain Respiratory: States: cough, short of breath Cardiology: Denies: chest pain Gastrointestinal/Abdominal: States: nausea. Denies: abdominal pain, vomiting Genitourinary: States: no symptoms reported Musculoskeletal: States: back pain Skin: States: no symptoms reported Neurological: States: anxiety, headache Endocrine: States: no symptoms reported Hematologic/Lymphatic: States: no symptoms reported Past Medical History (General) - Patient Medical History Hx Seizures: No Hx Stroke: No Hx Dementia: No Hx Asthma: No Hx of COPD: No Hx Cardiac Disorders: Yes Hx Congestive Heart Failure: No Hx Pacemaker: No Hx Hypertension: No Hx Thyroid Disease: No Hx Diabetes: No Hx Gastroesophageal Reflux: Yes Hx Renal Disease: No Hx Cancer: No Hx of HIV: No Hx Hepatitis C: No Hx MRSA: No Surgical History: Hysterectomy - Vaccination History Hx Tetanus, Diphtheria Vaccination: No Hx Influenza Vaccination: No Hx Pneumococcal Vaccination: No - Social History Hx Tobacco Use: Yes Hx Chewing Tobacco Use: No Hx Alcohol Use: No Hx Substance Use: No Hx Substance Use Treatment: No Hx Depression: No Hx Physical Abuse: No Hx Emotional Abuse: No Hx Suspected Abuse: No - Female History Patient is a Female of Child Bearing Age (10 -59 yrs old): No Patient : No Family Medical History - Family History Mother Family History: Unknown Hx Cardiac Disease: Yes - mom Hx Family;Other: bipolar disorder mom Physical Exam - Physical Exam General Appearance: Alert, Anxious Eye Exam: bilateral normal ENT Exam: hearing grossly normal, nasal congestion Neck: non-tender, full range of motion, supple Respiratory: lungs clear, normal breath sounds, no respiratory distress Cardiovascular/Chest: normal peripheral pulses, regular rate, rhythm, no edema Gastrointestinal/Abdominal: normal bowel sounds, non tender, soft Extremity: normal range of motion, non-tender, normal inspection Neurologic: alert, normal mood/affect, oriented x 3 Skin Exam: normal color, warm/dry Lymphatic: no adenopathy Departure - Departure Clinical Impression: Upper respiratory infection Qualifiers: URI type: unspecified viral URI Qualified Code(s): J06.9 - Acute upper respiratory infection, unspecified Disposition: Discharge to Home or Self Care Departure Forms: ED Discharge - Pt. Copy, Patient Portal Self Enrollment Referrals: LITA HAMMOND [Primary Care Provider] - 1-2 Weeks Prescriptions: Benzonatate Perles [Tessalon Perles] 100 mg PO TID PRN #30 cap PRN Reason: Cough Dextromethorphan-Guaifenesin [Mucinex Dm Maximum Streng 60-1200 mg] 1 tab PO BID #20 tab Home Medications: Ambulatory Orders Klonopin 11/04/15 Lasix 11/04/15 Nexium 11/04/15 Seroquel 11/04/15 Ipratropium/Albuterol Inhaler [Combivent Respimat 20-100 Mcg/Act] 1 puff INH RTQID #1 inh 02/04/16 Ondansetron [Zofran Odt] 4 mg PO Q8H PRN #10 tab 09/26/16 Dicyclomine HCl [Bentyl] 20 mg PO Q6HR #15 tab 11/09/17 Sulfa/Trimeth 800/160 (Ds) Tab [Bactrim DS] 1 tablet PO BID #20 tab 05/23/18 Phenazopyridine HCl [Pyridium] 200 mg PO BID #10 tab 09/19/18 Sulfa/Trimeth 800/160 (Ds) Tab [Bactrim DS] 1 tablet PO BID 10 Days #20 tab 09/19/18 Benzonatate Perles [Tessalon Perles] 100 mg PO TID PRN #30 cap 09/26/18 Dextromethorphan-Guaifenesin [Mucinex Dm Maximum Streng 60-1200 mg] 1 tab PO BID #20 tab 09/26/18
--- NOTE | 2018-09-26 20:11 | RAD ---
EXAM DESCRIPTION: Chest,1 View CLINICAL HISTORY: cough COMPARISON: Chest radiograph dated May 22, 2018 TECHNIQUE: Single upright portable AP view of the chest FINDINGS: Cardiomediastinal silhouette and pulmonary vascularity are within normal limits. Redemonstration of scattered punctate subcentimeter calcified granulomas bilaterally. Lungs show no confluent infiltrates. Bilateral costophrenic angles are sharp. No pneumothorax. Visualized osseous structures show no destructive lesions. IMPRESSION: No acute cardiopulmonary process. Electronically signed by: Yony Ortiz MD 09/26/2018 8:08 PM [facility]
[2018-09-26 21:17] VITALS: BP 122/60; TEMP 97.4; O2SAT 98
== END 2018-09-26 21:17 | disposition home or self-care (01) ==
LOC: ER 19:08
DX: J06.9 Acute upper respiratory infection, unspecified (principal); I51.9 Heart disease, unspecified; K21.9 Gastro-esophageal reflux disease without esophagitis; Z87.891 Personal history of nicotine dependence; Z79.899 Other long term (current) drug therapy; Z88.5 Allergy status to narcotic agent

== ENCOUNTER 2018-10-11 14:30 | Emergency (ER) | payer OTHER ==
[2018-10-11] MEDS: predniSONE 20 MG TAB PO ONE (15:14)
--- NOTE | 2018-10-11 15:18 | RAD ---
When radiograph of the chest. 3 Radiographs of the Abdomen. Indication: syncope, confusion, chronic pain Comparison: Marked 2016. Impression: Mild cardiomegaly without failure. Lungs clear. Multiple surgical clips in the left pelvis. No free air. Mild constipation without findings of obstruction. No abnormal calcifications. No acute osseous abnormality. Electronically signed by: Derek Erci MD 10/11/2018 3:15 PM CDT
--- NOTE | 2018-10-11 15:39 | RAD ---
Two-view left femur Indication: pain Comparison: None. Impression: No fracture of the left femur identified. If high clinical concern for fracture, correlation with CT or MRI recommended. Partial visualization of tricompartmental left knee osteoarthritis. Tiny effusion noted. Dedicated knee imaging could better evaluate as clinically indicated. Electronically signed by: Derek Eric MD 10/11/2018 3:36 PM CDT
[2018-10-11] MEDS: POTASSIUM CHLORIDE ELIXIR 20 MEQ/15 ML UD PO ONE (15:45)
[2018-10-11] MEDS: SODIUM CHLORIDE 0.9% 1000ML 1,000 ML IVS ONE (15:45)
--- NOTE | 2018-10-11 17:23 | CT ---
EXAM DESCRIPTION: Head CLINICAL HISTORY: confusion, syncope COMPARISON: Previous CT head September 10, 2017 TECHNIQUE: Noncontrast head CT was performed with routine protocol. FINDINGS: Normal anderson-white matter differentiation. Ventricles and sulci are normal for age. No high density hemorrhage, focal edema or shift of the midline. No sulcal effacement. Normal orbital contents. Basilar cisterns appear clear. Intact calvarium with no fracture or lytic lesion. Normal aeration of tympanic cavities. No development of the left mastoid air cells. No fluid levels in the paranasal sinuses. Skull base appears intact. Symmetrical internal auditory canals. IMPRESSION: No acute intracranial pathologic process. This exam was performed according to our departmental dose-optimization program, which includes automated exposure control, adjustment of the mA and/or kV according to patient size and/or use of iterative reconstruction technique. Total DLP equals 859.97 mGycm. Electronically signed by: Jose Alfreod Newman MD 10/11/2018 5:20 PM CDT
[2018-10-11 17:42] VITALS: O2SAT 99
--- NOTE | 2018-10-11 18:18 | ED.PDOC ---
History of Present Illness - General Chief Complaint: General Stated Complaint: L leg discomfort Time Seen by Provider: 10/11/18 14:37 Source: patient Exam Limitations: no limitations - History of Present Illness Initial Comments: the patient is a 53-year-old female presenting to the emergency room secondary to what is essentially a syncopal episode. The patient was getting up actually to come to the hospital secondary to left-sided leg pain when she passed out. Apparently she was out cold for a minute or so and was confused for another couple of minutes. No focal neurological deficits. The patient has been having a difficult time over the last couple of months because she has lost her primary care doctor who wrote her chronic pain medications and she has also been taken off of her long-time medications for her bipolar disorder due to difficulties with her liver. She is obviously depressed and very anxious. She was on hydrocodone for many years and is now off of it as well as off of gabapentin. She does take Lasix for chronic dependent edema. She has no significant edema at this time. She does appear to be having a significant psoriasis flare. She is currently alert and oriented but very anxious and inconsolable. She reports pain everywhere you touch her. No obvious fever. No known falls. She was gently lowered to the ground when she went out earlier today. No obvious evidence of any acute trauma. telemetry monitoring shows a normal sinus rhythm. Timing/Duration: unsure Severity: severe Improving Factors: nothing Worsening Factors: nothing Associated Symptoms: loss of appetite, malaise, syncope, weakness Allergies/Adverse Reactions: Allergies Codeine Allergy (Unknown, Verified 10/11/18 14:59) Home Medications: Ambulatory Orders Klonopin 11/04/15 Lasix 11/04/15 Nexium 11/04/15 Potassium Chloride [Potassium Chloride ER] 20 meq PO DAILY #14 tab 10/11/18 predniSONE [Prednisone] 20 mg PO CURTIS-OT-DAY #7 tab 10/11/18 Review of Systems - Review of Systems Constitutional: States: malaise, weakness EENTM: States: no symptoms reported Respiratory: States: no symptoms reported Cardiology: States: no symptoms reported Gastrointestinal/Abdominal: States: abdominal pain - chronic and generalized, constipation - chronic Genitourinary: States: no symptoms reported Musculoskeletal: States: other - diffuse pain a little worse in the left lower extremity today than previous Skin: States: see HPI - diffuse flaring of psoriasis Neurological: States: anxiety, depressed Endocrine: States: no symptoms reported All other Systems: No Change from Baseline Past Medical History (General) - Patient Medical History Hx Seizures: No Hx Stroke: No Hx Dementia: No Hx Asthma: No Hx of COPD: No Hx Cardiac Disorders: Yes Hx Congestive Heart Failure: No Hx Pacemaker: No Hx Hypertension: No Hx Thyroid Disease: No Hx Diabetes: No Hx Gastroesophageal Reflux: Yes Hx Renal Disease: No Hx Cancer: No Hx of HIV: No Hx Hepatitis C: No Hx MRSA: No - Vaccination History Hx Tetanus, Diphtheria Vaccination: No Hx Influenza Vaccination: No Hx Pneumococcal Vaccination: No - Social History Hx Tobacco Use: Yes Hx Chewing Tobacco Use: No Hx Alcohol Use: No Hx Substance Use: No Hx Substance Use Treatment: No Hx Depression: No Hx Physical Abuse: No Hx Emotional Abuse: No Hx Suspected Abuse: No - Female History Patient : No Family Medical History - Family History Mother Family History: Unknown Hx Cardiac Disease: Yes - mom Hx Family;Other: bipolar disorder mom Physical Exam - Physical Exam General Appearance: Alert, Anxious Eye Exam: bilateral normal Ears, Nose, Throat: hearing grossly normal, normal pharynx Neck: full range of motion, supple Respiratory: lungs clear, normal breath sounds, no respiratory distress, no accessory muscle use Cardiovascular/Chest: normal peripheral pulses, regular rate, rhythm, no edema Peripheral Pulses: radial,right: 2+, radial,left: 2+, dorsalis pedis,right: 2+, dorsalis pedis,left: 2+ Gastrointestinal/Abdominal: soft, other - the patient reports of pain anywhere on her body that she has touched but there is no focal pain above the background. No obvious palpable mass. 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 Skin Exam: other - significant flaring of psoriasis diffusely, primarily starting in extremities rather than trunk Comments: Vital Signs - 24 hr 10/11/18 10/11/18 10/11/18 14:30 15:31 16:31 Temperature 98.4 F Pulse Rate [ 67 64 75 Left Radial] Respiratory 16 16 16 Rate Blood Pressure 127/77 117/64 92/57 [Left Arm] O2 Sat by Pulse 94 L 97 99 Oximetry 10/11/18 17:30 Temperature Pulse Rate [ 69 Left Radial] Respiratory 18 Rate Blood Pressure 117/62 [Left Arm] O2 Sat by Pulse 99 Oximetry Progress - Progress Progress: 10/11/18 18:22 The patient a 53-year-old female presenting to emergency room secondary to increasing pain and a syncopal episode. I believe this is in general due to significant dehydration and orthostasis. The patient does take Lasix on a daily basis and has for a long time. It is likely that since she has changed her psychiatric medication she is not needing this high dose of Lasix. She was given a liter of IV fluids here to help reduce the orthostasis and prevent another syncopal episode. Additionally she does have hypokalemia which is likely contributing to the pain. She received a large oral dose here and will be written for a couple of weeks of oral potassium. She does need to have a level rechecked in a few weeks with her primary care doctor. The patient also i s obviously having significant issues with her depression and anxiety. She needs to keep follow-up with [facility] tomorrow for further adjustment of her psychiatric medications. Head CT shows no evidence of any stroke. Laboratory work otherwise appears to be close to this patient's baseline. Telemetry monitoring shows no evidence of any significant arrhythmia. She does need to keep follow-up with her primary care doctor for continuation of her pain management. additionally the patient is having a psoriasis flare. I'm going to place her on prednisone 20 mg every other day for 7 doses. The psoriasis may be worsening her arthritic issues as well. ER warnings were given for significant worsening. 10/11/18 18:26 - Results/Orders Results/Orders: acute abdominal series shows some constipation. Head CT shows no evidence of any acute pathology. Telemetry monitoring shows normal sinus rhythm. Laboratory Tests 10/11/18 10/11/18 10/11/18 14:50 14:50 14:50 WBC 2.4 L* RBC 4.01 L Hgb 13.8 Hct 40.3 MCV 100.4 H MCH 34.4 H MCHC 34.2 RDW 14.8 H Plt Count 48 L* MPV 10.2 Absolute Neuts (auto) Not Reportable Absolute Lymphs (auto) Not Reportable Absolute Monos (auto) Not Reportable Absolute Eos (auto) Not Reportable Neutrophils % Not Reportable Neutrophils % (Manual) 58.0 Lymphocytes % Not Reportable Lymphocytes % (Manual) 32.0 Monocytes % Not Reportable Monocytes % (Manual) 8.0 Eosinophils % Not Reportable Basophils % Not Reportable Eosinophils 1.0 Basophils 1.0 Normal RBC Morphology Plts garima decreased Sodium 138 Potassium 3.1 L Chloride 101 Carbon Dioxide 24 Anion Gap 16.1 BUN 10 Creatinine 0.64 BUN/Creatinine Ratio 15.6 Random Glucose 103 Serum Osmolality 275.0 Lactic Acid Calcium 9.1 Magnesium 2.1 Total Bilirubin 1.2 H AST 53 H ALT 41 Alkaline Phosphatase 152 H Ammonia 37 H Creatine Kinase 87 CK-MB (CK-2) 1.5 CK-MB (CK-2) % 1.72 Troponin I < 0.02 B-Natriuretic Peptide 26.1 Serum Total Protein 6.6 Albumin 3.8 Globulin 2.8 Albumin/Globulin Ratio 1.4 Amylase 113 H Lipase 32 TSH 1.27 Urine Color Urine Appearance Urine pH Ur Specific [place] Urine Protein Urine Glucose (UA) Urine Ketones Urine Blood Urine Nitrite Urine Bilirubin Urine Urobilinogen Ur Leukocyte Esterase Urine RBC Urine WBC Ur Epithelial Cells Urine Bacteria 10/11/18 10/11/18 14:50 17:51 WBC RBC Hgb Hct MCV MCH MCHC RDW Plt Count MPV Absolute Neuts (auto) Absolute Lymphs (auto) Absolute Monos (auto) Absolute Eos (auto) Neutrophils % Neutrophils % (Manual) Lymphocytes % Lymphocytes % (Manual) Monocytes % Monocytes % (Manual) Eosinophils % Basophils % Eosinophils Basophils Normal RBC Morphology Sodium Potassium Chloride Carbon Dioxide Anion Gap BUN Creatinine BUN/Creatinine Ratio Random Glucose Serum Osmolality Lactic Acid 2.3 H Calcium Magnesium Total Bilirubin AST ALT Alkaline Phosphatase Ammonia Creatine Kinase CK-MB (CK-2) CK-MB (CK-2) % Troponin I B-Natriuretic Peptide Serum Total Protein Albumin Globulin Albumin/Globulin Ratio Amylase Lipase TSH Urine Color Yellow Urine Appearance Clear Urine pH 7.5 Ur Specific [place] 1.015 Urine Protein Negative Urine Glucose (UA) Negative Urine Ketones Negative Urine Blood Negative Urine Nitrite Negative Urine Bilirubin Negative Urine Urobilinogen 4.0 H Ur Leukocyte Esterase Negative Urine RBC 0 Urine WBC 0 Ur Epithelial Cells 0-1 Urine Bacteria 0 Departure - Departure Clinical Impression: Dehydration, Hypokalemia, Psoriasis, Orthostasis Syncope Qualifiers: Syncope type: unspecified Qualified Code(s): R55 - Syncope and collapse Disposition: Discharge to Home or Self Care Condition: Fair Departure Forms: ED Discharge - Pt. Copy, Patient Portal Self Enrollment Instructions: Syncope (Fainting) (DC), Hypokalemia (DC), Psoriasis (DC) Diet: regular diet Activity: increase activity as tolerated Referrals: LITA HAMMOND [Primary Care Provider] - 1-2 Weeks Prescriptions: Potassium Chloride [Potassium Chloride ER] 20 meq PO DAILY #14 tab predniSONE [Prednisone] 20 mg PO CURTIS-OTH-DAY #7 tab Home Medications: Ambulatory Orders Klonopin 11/04/15 Lasix 11/04/15 Nexium 11/04/15 Potassium Chloride [Potassium Chloride ER] 20 meq PO DAILY #14 tab 10/11/18 predniSONE [Prednisone] 20 mg PO CURTIS-OTH-DAY #7 tab 10/11/18 Additional Instructions: The patient a 53-year-old female presenting to emergency room secondary to increasing pain and a syncopal episode. I believe this is in general due to significant dehydration and orthostasis. The patient does take Lasix on a daily basis and has for a long time. It is likely that since she has changed her psychiatric medication she is not needing this high dose of Lasix. She was given a liter of IV fluids here to help reduce the orthostasis and prevent another syncopal episode. Additionally she does have hypokalemia which is likely contributing to the pain. She received a large oral dose here and will be written for a couple of weeks of oral potassium. She does need to have a level rechecked in a few weeks with her primary care doctor. The patient also is obviously having significant issues with her depression and anxiety. She needs to keep follow-up with [facility] tomorrow for further adjustment of her psychiatric medications. Head CT shows no evidence of any stroke. Laboratory work otherwise appears to be close to this patient's baseline. Telemetry mo nitoring shows no evidence of any significant arrhythmia. She does need to keep follow-up with her primary care doctor for continuation of her pain management. ER warnings were given for significant worsening.
[2018-10-11 18:42] VITALS: BP 115/60; TEMP 97.3
== END 2018-10-11 18:43 | disposition home or self-care (01) ==
LOC: ER 14:30
DX: R55 Syncope and collapse (principal); E86.0 Dehydration; E87.6 Hypokalemia; I95.1 Orthostatic hypotension; L40.9 Psoriasis, unspecified; F41.9 Anxiety disorder, unspecified; F31.9 Bipolar disorder, unspecified; M79.605 Pain in left leg; I51.9 Heart disease, unspecified; K21.9 Gastro-esophageal reflux disease without esophagitis; Z87.891 Personal history of nicotine dependence; Z88.5 Allergy status to narcotic agent; Z79.899 Other long term (current) drug therapy
CPT/HCPCS: 36415; 70450; 73551; 74019; 80053; 81001; 82140; 82150; 82550; 82553; 83605; 83690; 83735; 83880; 84443; 84484; 85025; J7030; J7512

== ENCOUNTER 2018-10-18 22:07 | Emergency (ER) | payer OTHER ==
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
[2018-10-19 03:10] VITALS: BP 141/72; TEMP 98.5; O2SAT 99
== END 2018-10-19 03:10 ==
LOC: ER 22:07
DX: F31.9 Bipolar disorder, unspecified (principal); I51.9 Heart disease, unspecified; K21.9 Gastro-esophageal reflux disease without esophagitis; Z87.891 Personal history of nicotine dependence; Z79.899 Other long term (current) drug therapy; Z88.5 Allergy status to narcotic agent

== ENCOUNTER 2018-11-04 09:28 | Emergency (ER) | payer OTHER ==
[2018-11-04] MEDS ORDERED: SODIUM CHLORIDE 0.9% 1000ML 1,000 ML IVS ONE (09:44)
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
[2018-11-04] MEDS ORDERED: POTASSIUM CHLORIDE INJ 40 MEQ 40 MEQ in SODIUM CHLORIDE 0.9% 1000ML 1,000 ML IV PRN (10:32)
[2018-11-04] MEDS ORDERED: CEPHALEXIN MONOHYDRATE 500 MG CAP PO ONE (10:52)
[2018-11-04] MEDS ORDERED: SODIUM CHLORIDE 0.9% 1000ML 1,000 ML ONE (11:07)
[2018-11-04] MEDS ORDERED: POTASSIUM CHLORIDE 40mEq 20ML VIAL ONE (11:07)
[2018-11-04] MEDS ORDERED: ONDANSETRON ODT 8 MG TAB SL ONE (11:31)
[2018-11-04 16:09] VITALS: BP 142/100; TEMP 98.4; O2SAT 100
== END 2018-11-04 15:55 | disposition home or self-care (01) ==
LOC: ER 09:28
DX: N30.00 Acute cystitis without hematuria (principal); F31.32 Bipolar disorder, current episode depressed, moderate; E87.6 Hypokalemia; I51.9 Heart disease, unspecified; K21.9 Gastro-esophageal reflux disease without esophagitis; Z79.899 Other long term (current) drug therapy; Z87.891 Personal history of nicotine dependence; Z88.5 Allergy status to narcotic agent
CPT/HCPCS: 36415; 80053; 80307; 81001; 83605; 85025; 87086; 87502; J3480; J7030

== ENCOUNTER 2018-11-09 09:49 | Emergency (ER) | payer OTHER ==
[2018-11-09 10:07] VITALS: TEMP 97.8
--- NOTE | 2018-11-09 10:24 | ED.PDOC ---
History of Present Illness - General Chief Complaint: Chest Pain/AK Stated Complaint: Pt complains of chest pain since this AM Time Seen by Provider: 11/09/18 10:01 Source: patient, RN notes reviewed, Vital Signs reviewed, family Exam Limitations: physical impairment - History of Present Illness Initial Comments: c/o sharp, constant chest pain. Conflicting accounts as to when it started but at least 4 hrs but up to 12. 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 She appears to have an intellectual delay and/or psychiatric disturbance that limits the Hx. Timing/Duration: 4-6 hours Severity/Quality: severe, sharp Location: central Chest Pain Radiation: other - "everywhere" Prior Chest Pain/Cardiac Workup: no prior chest pain, no prior cardiac workup Improving Factors: nothing Worsening Factors: movement, other - touching her Nitro Today/Relief: no nitro taken today Aspirin Treatment Today: no aspirin today Associated Symptoms: abdominal pain, back pain, nausea/vomiting, shortness of breath, weakness - global pain Allergies/Adverse Reactions: Allergies Codeine Allergy (Unknown, Verified 11/09/18 10:10) Home Medications: Ambulatory Orders Potassium Chloride [Potassium Chloride ER] 20 meq PO DAILY #14 tab 10/11/18 predniSONE [Prednisone] 20 mg PO CURTIS-OTH-DAY #7 tab 10/11/18 Esomeprazole Magnesium [Nexium] 40 mg PO DAILY 10/18/18 Venlafaxine HCl 37.5 mg PO DAILY 10/18/18 Cephalexin Monohydrate [Keflex] 500 mg PO TID 5 Days #15 cap 11/04/18 Docusate Sodium 100 mg PO BID 11/04/18 Ferrous Gluconate [Fergon] 27 mg PO DAILY 11/04/18 Furosemide 40 mg PO DAILY 11/04/18 Gabapentin 300 mg PO BID 11/04/18 [place]-3 Fatty Acids [[place] 3] 1 cap PO DAILY 11/04/18 Potassium Chloride [K-Tab] 20 meq PO DAILY #10 tab 11/04/18 Risperidone 1 mg PO DAILY 11/04/18 Review of Systems - Review of Systems Constitutional: States: see HPI, weakness. Denies: fever EENTM: States: see HPI, nose congestion, throat pain Respiratory: States: cough, short of breath Cardiology: States: see HPI, chest pain Gastrointestinal/Abdominal: States: see HPI, abdominal pain, nausea. Denies: diarrhea Genitourinary: States: see HPI, dysuria, other - seen here last week for UTI Musculoskeletal: States: see HPI, muscle pain Skin: States: no symptoms reported Neurological: States: anxiety, headache, weakness Endocrine: States: no symptoms reported Hematologic/Lymphatic: States: no symptoms reported Past Medical History (General) - Patient Medical History Hx Seizures: No Hx Stroke: No Hx Dementia: No Hx Asthma: No Hx of COPD: No Hx Cardiac Disorders: No Hx Congestive Heart Failure: No Hx Pacemaker: No Hx Hypertension: No Hx Thyroid Disease: No Hx Diabetes: No Hx Gastroesophageal Reflux: Yes Hx Renal Disease: No Hx Cancer: No Hx of HIV: No Hx Hepatitis C: No Hx MRSA: No - Vaccination History Hx Tetanus, Diphtheria Vaccination: No Hx Influenza Vaccination: No Hx Pneumococcal Vaccination: No - Social History Hx Tobacco Use: Yes Hx Chewing Tobacco Use: No Hx Alcohol Use: No Hx Substance Use: No Hx Substance Use Treatment: No Hx Depression: No Hx Physical Abuse: No Hx Emotional Abuse: No Hx Suspected Abuse: No - Female History Patient is a Female of Child Bearing Age (10 -59 yrs old): Yes Patient : No - oopherectomy Family Medical History - Family History Mother Family History: Unknown Living Status: Unknown Hx Cardiac Disease: Yes - mom Hx Family;Other: bipolar disorder mom Physical Exam - Physical Exam General Appearance: Alert, Anxious, No apparent distress Eyes, Ears, Nose, Throat Exam: normal ENT inspection, other - edentulous Neck: full range of motion, supple, normal inspection Respiratory: lungs clear, normal breath sounds, no respiratory distress, no accessory muscle use Cardiovascular/Chest: normal peripheral pulses, regular rate, rhythm, no edema, no JVD, other - tender chest wall Gastrointestinal/Abdominal: non tender, soft, no organomegaly Extremity: normal inspection, no pedal edema, other - tender everywhere I touch her Neurologic: no motor/sensory deficits, alert, oriented x 3 Skin Exam: normal color, warm/dry Progress - Progress Progress: 11/09/18 12:15 Unchanged but only 1 NTG has been given. 11/09/18 14:13 Sleeping. No chest pain but has some back pain. 11/09/18 16:01 I will defer ASA pending a cardiology evaluation due to her h/o GI bleed & her thrombocytopenia. - EKG/XRAY/CT EKG: Sinus, LVH, ST depression Comments: 75, nml axis, intervals, QRS XRAY: chest - no acute process - Consult/PCP Time Called: 16:02 Consult/PCP: Dr. Gutiérrez - Additional EKG/XRAY/Consults EKG #2: Sinus, nonspecific ST T wave Chg - rate 72, nml axis, intervals, QRS, T waves. ST segments improved. Departure - Departure Clinical Impression: Chest pain Qualifiers: Chest pain type: unspecified Qualified Code(s): R07.9 - Chest pain, unspecified Time of Disposition: 16:03 Disposition: Transfer to Hospital Condition: Good Home Medications: Ambulatory Orders Potassium Chloride [Potassium Chloride ER] 20 meq PO DAILY #14 tab 10/11/18 predniSONE [Prednisone] 20 mg PO CURTIS-OTH-DAY #7 tab 10/11/18 Esomeprazole Magnesium [Nexium] 40 mg PO DAILY 10/18/18 Venlafaxine HCl 37.5 mg PO DAILY 10/18/18 Cephalexin Monohydrate [Keflex] 500 mg PO TID 5 Days #15 cap 11/04/18 Docusate Sodium 100 mg PO BID 11/04/18 Ferrous Gluconate [Fergon] 27 mg PO DAILY 11/04/18 Furosemide 40 mg PO DAILY 11/04/18 Gabapentin 300 mg PO BID 11/04/18 [place]-3 Fatty Acids [[place] 3] 1 cap PO DAILY 11/04/18 Potassium Chloride [K-Tab] 20 meq PO DAILY #10 tab 11/04/18 Risperidone 1 mg PO DAILY 11/04/18 Transfer to Outside Facility - Transfer Information Accepting Facility: [facility] Reason for Transfer: required specialist not available
[2018-11-09] MEDS: NITROGLYCERIN 0.4 MG 25 EA TAB SL ONE ×3 (10:27→12:17)
--- NOTE | 2018-11-09 11:35 | RAD ---
EXAM DESCRIPTION: Chest,1 View CLINICAL HISTORY: chest pain COMPARISON: September 26, 2018 FINDINGS: The cardiomediastinal silhouette is unremarkable. There is no airspace consolidation or pleural effusion. There are a few tiny calcified granulomata in the right lung. The lung volumes are within normal range. There is no pneumothorax or acute fracture. IMPRESSION: No acute findings. Electronically signed by: Len Catherine MD 11/09/2018 11:32 AM CDT
[2018-11-09 17:04] VITALS: O2SAT 97
[2018-11-09 17:39] VITALS: BP 120/63
== END 2018-11-09 17:45 | disposition short-term general hospital (02) ==
LOC: ER 09:49
DX: R07.9 Chest pain, unspecified (principal); I51.7 Cardiomegaly; R10.9 Unspecified abdominal pain; M54.9 Dorsalgia, unspecified; R11.2 Nausea with vomiting, unspecified; R06.02 Shortness of breath; R53.1 Weakness; K21.9 Gastro-esophageal reflux disease without esophagitis; Z79.899 Other long term (current) drug therapy; Z87.891 Personal history of nicotine dependence; Z88.5 Allergy status to narcotic agent

== ENCOUNTER 2019-01-05 18:05 | Emergency (ER) | payer OTHER ==
[2019-01-05 18:20] VITALS: O2SAT 98
--- NOTE | 2019-01-05 18:36 | ED.PDOC ---
History of Present Illness - General Chief Complaint: Abdominal Pain Stated Complaint: does not feel well,right sided abd pain, Time Seen by Provider: 01/05/19 18:17 Information Source: patient, family - History of Present Illness Initial Comments: ABDOMINAL PAIN AND CONSTIPATION. SHE SAYS THAT SHE HAD A BM YESTERDAY AND A SMALL BM THIS MORNING. SHE IS A POOR HISTORIAN, BUT DENIES NAUSEA AND VOMITING AND DIARRHEA. SHE HAS HAD CONSTIPATION IN THE PAST. SHE VOICES THAT THE CAR RIDE TO THE HOSPITAL WAS ROUGH. Abdominal Pain Onset Location: RLQ Pain Radiation: no radiation, RLQ Quality: cramping Timing/Duration: 7-24 hours Improving Factors: nothing Worsening Factors: movement Review of Systems - Review of Systems Constitutional: States: no symptoms reported EENTM: States: no symptoms reported Respiratory: States: no symptoms reported Cardiology: States: no symptoms reported Gastrointestinal/Abdominal: States: abdominal pain, constipation Genitourinary: States: dysuria Musculoskeletal: States: no symptoms reported Skin: States: no symptoms reported Neurological: States: no symptoms reported Past Medical History (General) - Patient Medical History Hx Seizures: No Hx Stroke: No Hx Dementia: No Hx Asthma: No Hx of COPD: No Hx Cardiac Disorders: No Hx Congestive Heart Failure: No Hx Pacemaker: No Hx Hypertension: No Hx Thyroid Disease: No Hx Diabetes: No Hx Gastroesophageal Reflux: Yes Hx Renal Disease: No Hx Cancer: No Hx of HIV: No Hx Hepatitis C: No Hx MRSA: No Surgical History: Hysterectomy - Vaccination History Hx Tetanus, Diphtheria Vaccination: No Hx Influenza Vaccination: No Hx Pneumococcal Vaccination: No - Social History Hx Tobacco Use: No Hx Chewing Tobacco Use: No Hx Alcohol Use: No Hx Substance Use: No Hx Substance Use Treatment: No Hx Depression: No Hx Physical Abuse: No Hx Emotional Abuse: No Hx Suspected Abuse: No - Female History Patient : No - oopherectomy Family Medical History - Family History Mother Family History: Unknown Living Status: Unknown Hx Cardiac Disease: Yes - mom Hx Family;Other: bipolar disorder mom Physical Exam - Physical Exam General Appearance: Alert, Well Developed, Other - SEEMS TO BE IN MODERATE DISTRESS Eyes, Ears, Nose, Throat Exam: PERRL/EOMI Neck: non-tender Respiratory: chest non-tender Cardiovascular/Chest: normal peripheral pulses, regular rate, rhythm, no edema, no gallop Peripheral Pulses: No deficit Gastrointestinal/Abdominal: normal bowel sounds, no organomegaly, no pulsatile mass, other - THERE IS PAIN TO THE RLQ WITH GUARDING TO THE AREA AR MCBURNEY'S POINT. SHE HAS A SCAR ON THE RUQ. Rectal Exam: deferred Neurologic: no motor/sensory deficits, oriented x 3 Skin Exam: normal color Lymphatic: no adenopathy Progress - Results/Orders Results/Orders: 01/05/19 20:18 Hold Metformin x 48Hrs [id number] Laboratory Results WBC 3.1 K/mm3 (4.8-10.8) L 01/05/19 18:32 RBC 3.87 M/mm3 (4.20-5.40) L 01/05/19 18:32 Hgb 12.8 gm/dL (12.0-16.0) 01/05/19 18:32 Hct 37.7 % (36.0-47.0) 01/05/19 18:32 MCV 97.5 fl (81.0-99.0) 01/05/19 18:32 MCH 33.0 pg (27.0-31.0) H 01/05/19 18:32 MCHC 33.8 g/dL (33.0-37.0) 01/05/19 18:32 RDW 13.0 % (11.5-14.5) 01/05/19 18:32 Plt Count 40 K/mm3 (130-400) L* 01/05/19 18:32 MPV 11.0 fl (7.40-10.4) H 01/05/19 18:32 Absolute Neuts (auto) 2.00 K/uL (1.8-6.8) 01/05/19 18:32 Absolute Lymphs (auto) 0.70 K/uL (1.0-3.4) L 01/05/19 18:32 Absolute Monos (auto) 0.20 K/uL (0.2-0.8) 01/05/19 18:32 Absolute Eos (auto) 0.10 K/uL (0.0-0.4) 01/05/19 18:32 Absolute Basos (auto) 0.00 K/uL (0.0-0.1) 01/05/19 18:32 Neutrophils % 66.6 % (42.0-78.0) 01/05/19 18:32 Lymphocytes % 23.5 % (20.0-50.0) 01/05/19 18:32 Monocytes % 7.0 % (2.0-9.0) 01/05/19 18:32 Eosinophils % 2.1 % (1.0-5.0) 01/05/19 18:32 Basophils % 0.8 % (0.0-2.0) 01/05/19 18:32 Sodium 137 mmol/L (135-145) 01/05/19 18:32 Potassium 3.6 mmol/L (3.6-5.0) 01/05/19 18:32 Chloride 107 mmol/L (101-111) 01/05/19 18:32 Carbon Dioxide 22 mmol/L (21-31) 01/05/19 18:32 Anion Gap 11.6 (12-18) L 01/05/19 18:32 BUN 6 mg/dL (7-18) L 01/05/19 18:32 Creatinine 0.47 mg/dL (0.6-1.3) L 01/05/19 18:32 BUN/Creatinine Ratio 12.8 (10-20) 01/05/19 18:32 Random Glucose 118 mg/dL (70-105) H 01/05/19 18:32 Serum Osmolality 272.5 mOsm/L (275-295) L 01/05/19 18:32 Calcium 8.7 mg/dL (8.4-10.2) 01/05/19 18:32 Total Bilirubin 0.7 mg/dL (0.2-1.0) 01/05/19 18:32 AST 26 IU/L (10-42) 01/05/19 18:32 ALT 21 IU/L (10-60) 01/05/19 18:32 Alkaline Phosphatase 131 IU/L (42-121) H 01/05/19 18:32 Serum Total Protein 6.1 gm/dL (6.4-8.2) L 01/05/19 18:32 Albumin 3.1 g/dl (3.2-5.5) L 01/05/19 18:32 Globulin 3.0 gm/dL (2.3-3.5) 01/05/19 18:32 Albumin/Globulin Ratio 1.0 (1.1-1.9) L 01/05/19 18:32 Urine Color Yellow (Yellow) 01/05/19 18:37 Urine Appearance Clear (Clear) 01/05/19 18:37 Urine pH 6.0 (4.5-7.8) 01/05/19 18:37 Ur Specific [place] 1.025 (1.005-1.030) 01/05/19 18:37 Urine Protein Negative mg/dL 01/05/19 18:37 Urine Glucose (UA) Negative mg/dL (Negative) 01/05/19 18:37 Urine Ketones Negative mg/dL (NEGATIVE) 01/05/19 18:37 Urine Blood Trace-intact (Negative) H 01/05/19 18:37 Urine Nitrite Negative 01/05/19 18:37 Urine Bilirubin Negative (NEGATIVE) 01/05/19 18:37 Urine Urobilinogen 2.0 mg/dL (0.2-1.0) H 01/05/19 18:37 Ur Leukocyte Esterase Negative (Negative) 01/05/19 18:37 Urine RBC 1-3 /hpf 01/05/19 18:37 Urine WBC 0-1 /hpf 01/05/19 18:37 Ur Epithelial Cells 20-30 /hpf 01/05/19 18:37 Urine Bacteria 1+ 01/05/19 18:37 CT ABDOMEN CONSISTENT WITH COLITIS AND OR DIVERTICULITIS-MILD. WILL TREAT SUCH Departure - Departure Clinical Impression: Colitis Abdominal pain Qualifiers: Abdominal location: right lower quadrant Qualified Code(s): R10.31 - Right lower quadrant pain Time of Disposition: 21:48 Disposition: Discharge to Home or Self Care Condition: Good Departure Forms: ED Discharge - Pt. Copy, Patient Portal Self Enrollment Instructions: DI for Abdominal Pain-Adult Diet: resume usual diet Referrals: LITA HAMMOND [Primary Care Provider] - 1-2 Weeks Prescriptions: Hyoscyamine Sulfate [Levsin] 0.125 mg PO Q8HRS #15 tab Ciprofloxacin [Cipro] 500 mg PO BID #20 tab metroNIDAZOLE [Flagyl] 500 mg PO Q8H #21 tab Home Medications: Ambulatory Orders Potassium Chloride [Potassium Chloride ER] 20 meq PO DAILY #14 tab 10/11/18 predniSONE [Prednisone] 20 mg PO CURTIS-OTH-DAY #7 tab 10/11/18 Esomeprazole Magnesium [Nexium] 40 mg PO DAILY 10/18/18 Venlafaxine HCl 37.5 mg PO DAILY 10/18/18 Cephalexin Monohydrate [Keflex] 500 mg PO TID 5 Days #15 cap 11/04/18 Docusate Sodium 100 mg PO BID 11/04/18 Ferrous Gluconate [Fergon] 27 mg PO DAILY 11/04/18 Furosemide 40 mg PO DAILY 11/04/18 Gabapentin 300 mg PO BID 11/04/18 [place]-3 Fatty Acids [[place] 3] 1 cap PO DAILY 11/04/18 Potassium Chloride [K-Tab] 20 meq PO DAILY #10 tab 11/04/18 Risperidone 1 mg PO DAILY 11/04/18 Ciprofloxacin [Cipro] 500 mg PO BID #20 tab 01/05/19 Hyoscyamine Sulfate [Levsin] 0.125 mg PO Q8HRS #15 tab 01/05/19 metroNIDAZOLE [Flagyl] 500 mg PO Q8H #21 tab 01/05/19
--- NOTE | 2019-01-05 18:54 | RAD ---
EXAM: Abdomen Series CLINICAL INDICATION: Abdominal pain COMPARISON: There is no previous study for comparison. FINDINGS: A single view of the chest reveals the heart size is normal. The pulmonary vessels are unremarkable. The lungs are clear except for trace left pleural effusion. There is no evidence of free air under the hemidiaphragms. 2views of the abdomen were obtained. There is a nonspecific bowel gas pattern with no radiographic evidence of bowel obstruction. There are no dilated loops of small bowel. There is no evidence of pneumoperitoneum or pathologic calcifications. IMPRESSION: No evidence of an acute intraabdominal process. Electronically signed by: Inder An MD 01/05/2019 6:52 PM CDT
[2019-01-05] MEDS ORDERED: fentaNYL CITRATE INJ 50 MCG/ML AMP IV ONE (20:17)
--- NOTE | 2019-01-05 21:37 | CT ---
EXAM: CT Abdomen and Pelvis With Intravenous Contrast CLINICAL HISTORY: 53 years old and is Female; RLQ PAIN TECHNIQUE: Axial computed tomography images of the abdomen and pelvis with intravenous contrast. Sagittal and coronal reformatted images were created and reviewed. This CT exam was performed using one or more of the following dose reduction techniques: automated exposure control, adjustment of the mA and/or kV according to patient size, and/or use of iterative reconstruction technique. COMPARISON: No relevant prior studies available. FINDINGS: Limitations: None. Lung bases: Mild dependent atelectasis present. ABDOMEN: Liver: Cirrhotic liver. Pneumobilia. Gallbladder and bile ducts: Cholecystectomy. Pancreas: Unremarkable. No mass. No ductal dilation. Spleen: Splenomegaly. Adrenals: Unremarkable. No mass. Kidneys and ureters: Unremarkable. No solid mass. No hydronephrosis. Stomach and bowel: There is very mild inflammation of the cecum in the region of the ileocecal valve. No obstruction. No mucosal thickening. PELVIS: Appendix: Appendix is not visualized distinctly. No inflammation in its expected location. Bladder: Unremarkable. No mass. Reproductive: Unremarkable as visualized. ABDOMEN and PELVIS: Intraperitoneal space: No free fluid or free air. Bones/joints: No acute fracture. No dislocation. Soft tissues: Unremarkable. Vasculature: Varices in the upper abdomen particularly in the splenic hilum noted. There are retroperitoneal probable splenorenal varices. Minimal atherosclerosis. No abdominal aortic aneurysm. Lymph nodes: Unremarkable. No enlarged lymph nodes. IMPRESSION: 1. Mild pericecal inflammation. Considerations include colitis and diverticulitis. 2. Cirrhosis and portal venous hypertension with varices. No ascites. Electronically signed by: Steph Guillermo MD 01/05/2019 9:35 PM CDT
[2019-01-05 22:23] VITALS: BP 134/72; TEMP 97.9
== END 2019-01-05 22:23 | disposition home or self-care (01) ==
LOC: ER 18:05
DX: K52.9 Noninfective gastroenteritis and colitis, unspecified (principal); R30.0 Dysuria; K21.9 Gastro-esophageal reflux disease without esophagitis
CPT/HCPCS: 36415; 74019; 74177; 80053; 81001; 85025; J3010

== ENCOUNTER 2019-01-13 | Emergency (ER) | payer OTHER | END 2019-01-13 15:40 | disposition home or self-care (01) | CPT/HCPCS: 71045; 80048; 80074; 80076; 81001; 82550; 82553; 83605; 83690; 84443; 84484; 85025; 85610; 85730; J7030 ==

== ENCOUNTER 2019-01-16 11:56 | Emergency (ER) | payer OTHER ==
--- NOTE | 2019-01-16 12:48 | ED.PDOC ---
History of Present Illness - General Chief Complaint: General Stated Complaint: weakness Time Seen by Provider: 01/16/19 12:37 Source: patient, family - History of Present Illness Initial Comments: Patient is here today with worsening weakness. This has been going on for the past several months and years but they state that gotten considerably worse over the past week. She was seen in the emergency room several days ago but has not improved since then. She states she can't really describe it as she doesn't feel good and would like to be hospitalized for a couple of days. She denies any fever but has some chills. She has no cough or cold symptoms. She has no shortness of breath or chest pain. She has chronic allover back pain and lower extremity pain with no official diagnosis despite multiple workup. In the past she had been on chronic opioids for several years. Patient has been having some constipation and only having small amounts of bowel movements on a daily basis. She does have some dysuria. Timing/Duration: getting worse Severity: severe Improving Factors: nothing Worsening Factors: movement Associated Symptoms: fever/chills, malaise Allergies/Adverse Reactions: Allergies Codeine Allergy (Unknown, Verified 11/09/18 10:10) Home Medications: Ambulatory Orders Esomeprazole Magnesium [Nexium] 40 mg PO DAILY 10/18/18 Venlafaxine HCl 37.5 mg PO DAILY 10/18/18 Docusate Sodium 100 mg PO BID 11/04/18 Ferrous Gluconate [Fergon] 27 mg PO DAILY 11/04/18 Furosemide 40 mg PO DAILY 11/04/18 Gabapentin 600 mg PO BID 11/04/18 [place]-3 Fatty Acids [[place] 3] 1 cap PO DAILY 11/04/18 Risperidone 1 mg PO DAILY 11/04/18 Hyoscyamine Sulfate [Levsin] 0.125 mg PO Q8HRS #15 tab 01/05/19 Propranolol HCl [Inderal] 20 mg PO BID #60 tab 01/13/19 Potassium Chloride [K-Tab] 20 meq PO CURTSI-OTH-DAY 01/16/19 Review of Systems - Review of Systems Constitutional: States: chills, malaise, weakness. Denies: fever EENTM: States: no symptoms reported. Denies: blurred vision, ear pain, nose congestion, throat pain Respiratory: States: no symptoms reported. Denies: cough, short of breath, wheezing Cardiology: States: no symptoms reported. Denies: chest pain, edema, palpitations, syncope Gastrointestinal/Abdominal: States: constipation, nausea. Denies: abdominal pain, diarrhea, vomiting Genitourinary: States: dysuria Musculoskeletal: States: no symptoms reported Past Medical History (General) - Patient Medical History Hx Seizures: No Hx Stroke: No Hx Dementia: No Hx Asthma: No Hx of COPD: No Hx Cardiac Disorders: No Hx Congestive Heart Failure: No Hx Pacemaker: No Hx Hypertension: No Hx Thyroid Disease: No Hx Diabetes: No Hx Gastroesophageal Reflux: Yes Hx Renal Disease: No Hx Cancer: No Hx of HIV: No Hx Hepatitis C: No Hx MRSA: No - Vaccination History Hx Tetanus, Diphtheria Vaccination: No Hx Influenza Vaccination: No Hx Pneumococcal Vaccination: No - Social History Hx Tobacco Use: No Hx Chewing Tobacco Use: No Hx Alcohol Use: No Hx Substance Use: No Hx Substance Use Treatment: No Hx Depression: No Hx Physical Abuse: No Hx Emotional Abuse: No Hx Suspected Abuse: No - Female History Patient : No - oopherectomy Family Medical History - Family History Mother Family History: Unknown Living Status: Unknown Hx Cardiac Disease: Yes - mom Hx Family;Other: bipolar disorder mom Physical Exam - Physical Exam General Appearance: Comfortable, No apparent distress Eye Exam: bilateral normal Ears, Nose, Throat: hearing grossly normal, normal ENT inspection, normal pharynx Neck: non-tender, full range of motion, supple, normal inspection Respiratory: chest non-tender, lungs clear, normal breath sounds, no respiratory distress Cardiovascular/Chest: normal peripheral pulses, regular rate, rhythm, no edema, no gallop, no JVD Peripheral Pulses: radial,right: 2+, radial,left: 2+ Gastrointestinal/Abdominal: normal bowel sounds, non tender, soft Back Exam: normal inspection, no CVA tenderness Extremity: non-tender, normal inspection Neurologic: no motor/sensory deficits, alert, oriented x 3 Skin Exam: rash - diffuse psoriasis Progress - Progress Progress: 01/16/19 14:28 discussed with patient no acute illness. Urine is more consistent with yeast and we will treat this. Asked her to follow up in am with PCP to discuss chronic weakness. - Results/Orders Results/Orders: 01/16/19 12:45 EKG STAT 01/16/19 13:50 Urine Culture Stat 01/16/19 14:27 Fluconazole [Diflucan Tab] 150 mg PO ONCE ONE Laboratory Results WBC 3.9 K/mm3 (4.8-10.8) L 01/16/19 12:51 RBC 4.56 M/mm3 (4.20-5.40) 01/16/19 12:51 Hgb 14.8 gm/dL (12.0-16.0) 01/16/19 12:51 Hct 43.4 % (36.0-47.0) 01/16/19 12:51 MCV 95.1 fl (81.0-99.0) 01/16/19 12:51 MCH 32.3 pg (27.0-31.0) H 01/16/19 12:51 MCHC 34.0 g/dL (33.0-37.0) 01/16/19 12:51 RDW 12.2 % (11.5-14.5) 01/16/19 12:51 Plt Count 53 K/mm3 (130-400) L 01/16/19 12:51 MPV 11.8 fl (7.40-10.4) H 01/16/19 12:51 Absolute Neuts (auto) 2.90 K/uL (1.8-6.8) 01/16/19 12:51 Absolute Lymphs (auto) 0.70 K/uL (1.0-3.4) L 01/16/19 12:51 Absolute Monos (auto) 0.20 K/uL (0.2-0.8) 01/16/19 12:51 Absolute Eos (auto) 0.00 K/uL (0.0-0.4) 01/16/19 12:51 Absolute Basos (auto) 0.00 K/uL (0.0-0.1) 01/16/19 12:51 Neutrophils % 76.3 % (42.0-78.0) 01/16/19 12:51 Lymphocytes % 17.8 % (20.0-50.0) L 01/16/19 12:51 Monocytes % 4.7 % (2.0-9.0) 01/16/19 12:51 Eosinophils % 0.6 % (1.0-5.0) L 01/16/19 12:51 Basophils % 0.6 % (0.0-2.0) 01/16/19 12:51 Sodium 133 mmol/L (135-145) L 01/16/19 12:51 Potassium 3.4 mmol/L (3.6-5.0) L 01/16/19 12:51 Chloride 96 mmol/L (101-111) L 01/16/19 12:51 Carbon Dioxide 23 mmol/L (21-31) 01/16/19 12:51 Anion Gap 17.4 (12-18) 01/16/19 12:51 BUN 18 mg/dL (7-18) 01/16/19 12:51 Creatinine 0.59 mg/dL (0.6-1.3) L 01/16/19 12:51 BUN/Creatinine Ratio 30.5 (10-20) H 01/16/19 12:51 Random Glucose 99 mg/dL (70-105) 01/16/19 12:51 Serum Osmolality 268.3 mOsm/L (275-295) L 01/16/19 12:51 Calcium 9.2 mg/dL (8.4-10.2) 01/16/19 12:51 Total Bilirubin 1.6 mg/dL (0.2-1.0) H 01/16/19 12:51 AST 47 IU/L (10-42) H 01/16/19 12:51 ALT 52 IU/L (10-60) 01/16/19 12:51 Alkaline Phosphatase 119 IU/L (42-121) 01/16/19 12:51 Creatine Kinase 23 IU/L (26-140) L D 01/16/19 12:51 CK-MB (CK-2) 0.9 ng/mL (0.0-4.4) 01/16/19 12:51 CK-MB (CK-2) % Not Reportable 01/16/19 12:51 Troponin I < 0.02 ng/mL (0.01-0.05) 01/16/19 12:51 Serum Total Protein 6.5 gm/dL (6.4-8.2) 01/16/19 12:51 Albumin 3.6 g/dl (3.2-5.5) 01/16/19 12:51 Globulin 2.9 gm/dL (2.3-3.5) 01/16/19 12:51 Albumin/Globulin Ratio 1.2 (1.1-1.9) 01/16/19 12:51 Urine Color Yellow (Yellow) 01/16/19 13:50 Urine Appearance Cloudy (Clear) 01/16/19 13:50 Urine pH 6.0 (4.5-7.8) 01/16/19 13:50 Ur Specific [place] >= 1.030 (1.005-1.030) 01/16/19 13:50 Urine Protein 30 mg/dL 01/16/19 13:50 Urine Glucose (UA) Negative mg/dL (Negative) 01/16/19 13:50 Urine Ketones 80 mg/dL (NEGATIVE) H 01/16/19 13:50 Urine Blood Trace-lysed (Negative) H 01/16/19 13:50 Urine Nitrite Negative 01/16/19 13:50 Urine Bilirubin Moderate (NEGATIVE) 01/16/19 13:50 Urine Urobilinogen 1.0 mg/dL (0.2-1.0) 01/16/19 13:50 Ur Leukocyte Esterase Small (Negative) H 01/16/19 13:50 Urine RBC 0-1 /hpf 01/16/19 13:50 Urine WBC 5-10 /hpf H 01/16/19 13:50 Ur Epithelial Cells >50 /hpf 01/16/19 13:50 Urine Bacteria 2+ H 01/16/19 13:50 Urine Yeast 1+ budding H 01/16/19 13:50 - EKG/XRAY/CT EKG: Sinus, no ST T wave changes Departure - Departure Clinical Impression: Weakness Disposition: Discharge to Home or Self Care Condition: Fair Departure Forms: ED Discharge - Pt. Copy, Patient Portal Self Enrollment Referrals: LITA HAMMOND [Primary Care Provider] - 1-2 Weeks Home Medications: Ambulatory Orders Esomeprazole Magnesium [Nexium] 40 mg PO DAILY 10/18/18 Venlafaxine HCl 37.5 mg PO DAILY 10/18/18 Docusate Sodium 100 mg PO BID 11/04/18 Ferrous Gluconate [Fergon] 27 mg PO DAILY 11/04/18 Furosemide 40 mg PO DAILY 11/04/18 Gabapentin 600 mg PO BID 11/04/18 [place]-3 Fatty Acids [[place] 3] 1 cap PO DAILY 11/04/18 Risperidone 1 mg PO DAILY 11/04/18 Hyoscyamine Sulfate [Levsin] 0.125 mg PO Q8HRS #15 tab 01/05/19 Propranolol HCl [Inderal] 20 mg PO BID #60 tab 01/13/19 Potassium Chloride [K-Tab] 20 meq PO CURTIS-OTH-DAY 01/16/19 Additional Instructions: follow up in clinic in 1-2 days to discuss chronic weakness.
[2019-01-16] MEDS ORDERED: FLUCONAZOLE 150 MG TAB PO ONE (14:27)
[2019-01-16 15:08] VITALS: O2SAT 98
[2019-01-16 15:21] VITALS: BP 126/68; TEMP 98.1
== END 2019-01-16 15:19 | disposition home or self-care (01) ==
LOC: ER 11:56
DX: R53.1 Weakness (principal); K21.9 Gastro-esophageal reflux disease without esophagitis; R30.0 Dysuria; G89.29 Other chronic pain; Z79.899 Other long term (current) drug therapy; Z79.891 Long term (current) use of opiate analgesic; Z88.5 Allergy status to narcotic agent

== ENCOUNTER 2019-01-18 11:56 | Emergency (ER) | payer OTHER ==
--- NOTE | 2019-01-18 12:21 | ED.PDOC ---
History of Present Illness - General Chief Complaint: General Stated Complaint: generalized pain Time Seen by Provider: 01/18/19 12:15 Source: patient, family - Exam Limitations: no limitations - History of Present Illness Initial Comments: Lucina Swan 53 y/o female with history of liver cirrhosis idiopathic came to ER with generalized body aches and loss of appetite for several weeks.Had CT abd pelvis showing liver cirrhosis and esophageal varices.Had seen GI specialist in the past but had colonoscopy and egd done nothing was further explained to patient.She was seen 3 days ago for same problem advised to come see her primary MD but came to ER.No n/v,no hematemesis,no melena. Her hepatitis screen result were negative. Timing/Duration: intermittent - 3 weeks Severity: moderate Improving Factors: nothing Worsening Factors: nothing Associated Symptoms: other - see hpi Allergies/Adverse Reactions: Allergies Codeine Allergy (Unknown, Verified 01/18/19 12:11) Home Medications: Ambulatory Orders Esomeprazole Magnesium [Nexium] 40 mg PO DAILY 10/18/18 Venlafaxine HCl 37.5 mg PO DAILY 10/18/18 Docusate Sodium 100 mg PO BID 11/04/18 Ferrous Gluconate [Fergon] 27 mg PO DAILY 11/04/18 Furosemide 40 mg PO DAILY 11/04/18 Gabapentin 600 mg PO BID 11/04/18 [place]-3 Fatty Acids [[place] 3] 1 cap PO DAILY 11/04/18 Risperidone 1 mg PO DAILY 11/04/18 Hyoscyamine Sulfate [Levsin] 0.125 mg PO Q8HRS #15 tab 01/05/19 Propranolol HCl [Inderal] 20 mg PO BID #60 tab 01/13/19 Potassium Chloride [K-Tab] 20 meq PO CURTIS-OTH-DAY 01/16/19 Tramadol HCl 50 mg PO Q4HR PRN #20 tab 01/18/19 Review of Systems - Review of Systems Constitutional: States: malaise EENTM: States: no symptoms reported Respiratory: States: no symptoms reported Cardiology: States: no symptoms reported Gastrointestinal/Abdominal: States: see HPI, other - liver cirrhosis Genitourinary: States: no symptoms reported Musculoskeletal: States: no symptoms reported Skin: States: no symptoms reported Neurological: States: no symptoms reported All other Systems: Reviewed and Negative, No Change from Baseline Past Medical History (General) - Patient Medical History Hx Seizures: No Hx Stroke: No Hx Dementia: No Hx Asthma: No Hx of COPD: No Hx Cardiac Disorders: No Hx Congestive Heart Failure: No Hx Pacemaker: No Hx Hypertension: No Hx Thyroid Disease: No Hx Diabetes: No Hx Gastroesophageal Reflux: Yes Hx Renal Disease: No Hx Cancer: No Hx of HIV: No Hx Hepatitis C: No Hx MRSA: No Hx Other PMH: Yes - PSORIASIS Surgical History: other - TAHBSO - Vaccination History Hx Tetanus, Diphtheria Vaccination: No Hx Influenza Vaccination: No Hx Pneumococcal Vaccination: No - Social History Hx Tobacco Use: No Hx Chewing Tobacco Use: No Hx Alcohol Use: No Hx Substance Use: No Hx Substance Use Treatment: No Hx Depression: No Hx Physical Abuse: No Hx Emotional Abuse: No Hx Suspected Abuse: No - Female History Patient is a Female of Child Bearing Age (10 -59 yrs old): No Patient : No - oopherectomy Family Medical History - Family History Mother Family History: Unknown Living Status: Unknown Hx Cardiac Disease: Yes - mom Hx Family;Other: bipolar disorder mom Physical Exam - Physical Exam General Appearance: Alert, Comfortable, No apparent distress Eye Exam: bilateral normal Ears, Nose, Throat: hearing grossly normal, normal ENT inspection, other - edentulous Neck: non-tender, full range of motion, supple, normal inspection Respiratory: chest non-tender, lungs clear, normal breath sounds, no respiratory distress Cardiovascular/Chest: normal peripheral pulses, regular rate, rhythm, no murmur Peripheral Pulses: radial,right: 2+, radial,left: 2+ Gastrointestinal/Abdominal: non tender, soft, no organomegaly Back Exam: no CVA tenderness, no vertebral tenderness Extremity: no pedal edema, no calf tenderness Neurologic: alert, oriented x 3, other - flat affect Skin Exam: normal color, warm/dry Progress - Progress Progress: 01/18/19 12:25 Vital Signs - 8 hr 01/18/19 12:08 Temperature 97.3 F L Pulse Rate [ 58 L monitor] Respiratory 20 Rate Blood Pressure 115/59 [LA] O2 Sat by Pulse 98 Oximetry Departure - Departure Clinical Impression: Malaise and fatigue, Generalized body aches Cirrhosis of liver Qualifiers: Hepatic cirrhosis type: unspecified hepatic cirrhosis Ascites presence: without ascites Qualified Code(s): K74.60 - Unspecified cirrhosis of liver Time of Disposition: 12:27 Disposition: Discharge to Home or Self Care Condition: Fair Departure Forms: ED Discharge - Pt. Copy, Patient Portal Self Enrollment Referrals: LITA HAMMOND [Primary Care Provider] - 1-2 Weeks Prescriptions: Tramadol HCl 50 mg PO Q4HR PRN #20 tab PRN Reason: Pain Home Medications: Ambulatory Orders Esomeprazole Magnesium [Nexium] 40 mg PO DAILY 10/18/18 Venlafaxine HCl 37.5 mg PO DAILY 10/18/18 Docusate Sodium 100 mg PO BID 11/04/18 Ferrous Gluconate [Fergon] 27 mg PO DAILY 11/04/18 Furosemide 40 mg PO DAILY 11/04/18 Gabapentin 600 mg PO BID 11/04/18 [place]-3 Fatty Acids [[place] 3] 1 cap PO DAILY 11/04/18 Risperidone 1 mg PO DAILY 11/04/18 Hyoscyamine Sulfate [Levsin] 0.125 mg PO Q8HRS #15 tab 01/05/19 Propranolol HCl [Inderal] 20 mg PO BID #60 tab 01/13/19 Potassium Chloride [K-Tab] 20 meq PO CURTIS-OTH-DAY 01/16/19 Tramadol HCl 50 mg PO Q4HR PRN #20 tab 01/18/19 Additional Instructions: FOLLOW UP WITH YOUR PRIMARY MD KLAUDIA;Continue with all your home medications
[2019-01-18] MEDS ORDERED: PROMETHAZINE HCL INJ 25 MG/ML VIAL IM ONE (12:28)
[2019-01-18] MEDS ORDERED: MORPHINE SULFATE INJ 10 MG/ML VIAL IM ONE (12:28)
[2019-01-18 13:22] VITALS: BP 111/64; TEMP 97.4; O2SAT 96
== END 2019-01-18 13:21 | disposition home or self-care (01) ==
LOC: ER 11:56
DX: K74.60 Unspecified cirrhosis of liver (principal); R52 Pain, unspecified; R53.81 Other malaise; R53.83 Other fatigue; K21.9 Gastro-esophageal reflux disease without esophagitis; Z79.899 Other long term (current) drug therapy; Z88.5 Allergy status to narcotic agent
CPT/HCPCS: J2270; J2550

== ENCOUNTER 2019-01-27 10:56 | Emergency (ER) | payer OTHER ==
--- NOTE | 2019-01-27 11:34 | ED.PDOC ---
History of Present Illness - General Chief Complaint: Problem Stated Complaint: dysuria Time Seen by Provider: 01/27/19 11:32 Source: patient Exam Limitations: no limitations - History of Present Illness Initial Comments: Lucina Swan 53 y/o female came to ER with burning urination since yesterday no fever ,chills constipation or flank pain. Timing/Duration: yesterday Quality: moderate Onset Location: suprapubic, other - see hpi Radiation: none Activites at Onset: none Prior abdominal problems: none Sexual intercourse history: other - always Improving Factors: nothing Worsening Factors: nothing Associated Symptoms: denies symptoms Allergies/Adverse Reactions: Allergies Codeine Allergy (Unknown, Verified 01/18/19 12:11) Home Medications: Ambulatory Orders Esomeprazole Magnesium [Nexium] 40 mg PO DAILY 10/18/18 Venlafaxine HCl 37.5 mg PO DAILY 10/18/18 Docusate Sodium 100 mg PO BID 11/04/18 Ferrous Gluconate [Fergon] 27 mg PO DAILY 11/04/18 Furosemide 40 mg PO DAILY 11/04/18 Gabapentin 600 mg PO BID 11/04/18 Maurice-3 Fatty Acids [Maurice 3] 1 cap PO DAILY 11/04/18 Risperidone 1 mg PO DAILY 11/04/18 Hyoscyamine Sulfate [Levsin] 0.125 mg PO Q8HRS #15 tab 01/05/19 Propranolol HCl [Inderal] 20 mg PO BID #60 tab 01/13/19 Potassium Chloride [K-Tab] 20 meq PO CURTIS-OTH-DAY 01/16/19 Tramadol HCl 50 mg PO Q4HR PRN #20 tab 01/18/19 Cefuroxime Axetil [Ceftin] 500 mg PO Q12H 7 Days #14 tablet 01/27/19 Phenazopyridine HCl [Pyridium] 200 mg PO BID PRN #14 tab 01/27/19 Review of Systems - Review of Systems Genitourinary: States: see HPI All other Systems: Reviewed and Negative, No Change from Baseline Past Medical History (General) - Patient Medical History Hx Seizures: No Hx Stroke: No Hx Dementia: No Hx Asthma: No Hx of COPD: No Hx Cardiac Disorders: No Hx Congestive Heart Failure: No Hx Pacemaker: No Hx Hypertension: No Hx Thyroid Disease: No Hx Diabetes: No Hx Gastroesophageal Reflux: Yes Hx Renal Disease: No Hx Cancer: No Hx of HIV: No Hx Hepatitis C: No Hx MRSA: No Hx Other PMH: Yes - liver cirrhosis - Vaccination History Hx Tetanus, Diphtheria Vaccination: No Hx Influenza Vaccination: No Hx Pneumococcal Vaccination: No - Social History Hx Tobacco Use: No Hx Chewing Tobacco Use: No Hx Alcohol Use: No Hx Substance Use: No Hx Substance Use Treatment: No Hx Depression: No Hx Physical Abuse: No Hx Emotional Abuse: No Hx Suspected Abuse: No - Female History Patient : No - oopherectomy Family Medical History - Family History Mother Family History: Unknown Living Status: Unknown Hx Cardiac Disease: Yes - mom Hx Family;Other: bipolar disorder mom Physical Exam - Physical Exam General Appearance: Alert, Comfortable, No apparent distress Eyes, Ears, Nose, Throat Exam: normal ENT inspection Neck: supple, normal inspection Cardiovascular/Respiratory: regular rate, rhythm, no M/R/G, normal peripheral pulses, normal breath sounds Gastrointestinal/Abdominal: soft, no organomegaly, tenderness - suprabubic area no peritoneal signs Back Exam: normal inspection, no CVA tenderness, no vertebral tenderness Extremity: no pedal edema, no calf tenderness Neurologic: alert, oriented x 3 Skin Exam: normal color, warm/dry Progress - Results/Orders Results/Orders: Laboratory Tests 01/27/19 11:13 Urine Color Yellow Urine Appearance Clear Urine pH 6.5 Ur Specific [place] 1.015 Urine Protein Negative Urine Glucose (UA) Negative Urine Ketones Negative Urine Blood Trace-intact H Urine Nitrite Negative Urine Bilirubin Negative Urine Urobilinogen 1.0 Ur Leukocyte Esterase Negative Urine RBC 0-1 Urine WBC 0 Ur Epithelial Cells 10-20 Urine Bacteria Rare Discuss test results with patient Departure - Departure Clinical Impression: Dysuria Time of Disposition: 12:06 Disposition: Discharge to Home or Self Care Condition: Fair Departure Forms: ED Discharge - Pt. Copy, Patient Portal Self Enrollment Instructions: Dysuria, Adult (DC) Activity: other - drink extra fluids Referrals: LITA HAMMOND [Primary Care Provider] - 1-2 Weeks Prescriptions: Cefuroxime Axetil [Ceftin] 500 mg PO Q12H 7 Days #14 tablet Phenazopyridine HCl [Pyridium] 200 mg PO BID PRN #14 tab PRN Reason: Pain Home Medications: Ambulatory Orders Esomeprazole Magnesium [Nexium] 40 mg PO DAILY 10/18/18 Venlafaxine HCl 37.5 mg PO DAILY 10/18/18 Docusate Sodium 100 mg PO BID 11/04/18 Ferrous Gluconate [Fergon] 27 mg PO DAILY 11/04/18 Furosemide 40 mg PO DAILY 11/04/18 Gabapentin 600 mg PO BID 11/04/18 Maurice-3 Fatty Acids [Maurice 3] 1 cap PO DAILY 11/04/18 Risperidone 1 mg PO DAILY 11/04/18 Hyoscyamine Sulfate [Levsin] 0.125 mg PO Q8HRS #15 tab 01/05/19 Propranolol HCl [Inderal] 20 mg PO BID #60 tab 01/13/19 Potassium Chloride [K-Tab] 20 meq PO CURTIS-OTH-DAY 01/16/19 Tramadol HCl 50 mg PO Q4HR PRN #20 tab 01/18/19 Cefuroxime Axetil [Ceftin] 500 mg PO Q12H 7 Days #14 tablet 01/27/19 Phenazopyridine HCl [Pyridium] 200 mg PO BID PRN #14 tab 01/27/19 Additional Instructions: Keep appointment with primary Md
[2019-01-27] MEDS ORDERED: CEFUROXIME AXETIL TAB 250 MG TAB PO ONE (11:45)
[2019-01-27] MEDS ORDERED: HYDROcodone 10MG/APAP 325MG 1 EA TAB PO ONE (11:45)
[2019-01-27] MEDS ORDERED: PHENAZOPYRIDINE HCL 200 MG TAB PO ONE (11:45)
[2019-01-27 12:17] VITALS: BP 126/79; TEMP 98.5; O2SAT 99
== END 2019-01-27 12:15 | disposition home or self-care (01) ==
LOC: ER 10:56
DX: R30.0 Dysuria (principal); K21.9 Gastro-esophageal reflux disease without esophagitis; Z79.899 Other long term (current) drug therapy; Z88.5 Allergy status to narcotic agent

== ENCOUNTER 2019-02-02 15:26 | Emergency (ER) | payer OTHER ==
[2019-02-02 15:44] VITALS: TEMP 98.1
[2019-02-02] MEDS ORDERED: SODIUM CHLORIDE 0.9% 1000ML 1,000 ML IVS ONE (15:53)
--- NOTE | 2019-02-02 15:59 | ED.PDOC ---
History of Present Illness - General Chief Complaint: General Stated Complaint: back pain, weakness Time Seen by Provider: 02/02/19 15:53 Source: patient, family Exam Limitations: no limitations - History of Present Illness Initial Comments: patient comes in today for overall feeling of malaise. Patient states she's been going through this now for years with back pain, lower extremity cramping and pain, and fatigue. Patient states "I'm just tired of feeling this way". Patient states the back pain that she is having has been there for years without change or worsening in the last couple of days. She was recently diagnosed with a UTI and has finished her antibiotics. Patient states she's had no fever but some chills. She's had some nausea in the last couple days it's worse than her baseline. She's had no emesis, diarrhea, or constipation. Patient had normal bowel movement yesterday. Patient is primarily of just tired of feeling sick. Patient is well-known to our service and has been seen off and for both generalized malaise as well as psychological disorders. Patient has a past history of being on chronic opioid therapies until recently for back pain and l eg pain with no definitive diagnosis. Patient also has been hospitalized in the mental health unit multiple times for her bipolar disorder and paranoid delusions. Patient has known cirrhosis and has had had negative hepatitis screening per patient and has been scheduled with a specialist per her . Timing/Duration: other - for several years, slightly worse with feeling of dehydration x 2 days Improving Factors: nothing Worsening Factors: nothing Associated Symptoms: loss of appetite, malaise Allergies/Adverse Reactions: Allergies Codeine Allergy (Unknown, Verified 01/18/19 12:11) Home Medications: Ambulatory Orders Esomeprazole Magnesium [Nexium] 40 mg PO DAILY 10/18/18 Venlafaxine HCl 37.5 mg PO DAILY 10/18/18 Docusate Sodium 100 mg PO BID 11/04/18 Ferrous Gluconate [Fergon] 27 mg PO DAILY 11/04/18 Furosemide 40 mg PO DAILY 11/04/18 Gabapentin 600 mg PO BID 11/04/18 Norman-3 Fatty Acids [Norman 3] 1 cap PO DAILY 11/04/18 Risperidone 1 mg PO DAILY 11/04/18 Hyoscyamine Sulfate [Levsin] 0.125 mg PO Q8HRS #15 tab 01/05/19 Propranolol HCl [Inderal] 20 mg PO BID #60 tab 01/13/19 Potassium Chloride [K-Tab] 20 meq PO CURTIS-OTH-DAY 01/16/19 Tramadol HCl 50 mg PO Q4HR PRN #20 tab 01/18/19 Phenazopyridine HCl [Pyridium] 200 mg PO BID PRN #14 tab 01/27/19 Review of Systems - Review of Systems Constitutional: States: chills, malaise, weakness. Denies: fever EENTM: States: no symptoms reported. Denies: eye pain, ear pain, nose pain, throat pain Respiratory: States: no symptoms reported. Denies: cough, short of breath, wheezing Cardiology: States: no symptoms reported. Denies: chest pain, palpitations Gastrointestinal/Abdominal: States: nausea. Denies: abdominal pain, constipation, diarrhea, vomiting Musculoskeletal: States: see HPI, back pain Skin: States: no symptoms reported Past Medical History (General) - Patient Medical History Hx Seizures: No Hx Stroke: No Hx Dementia: No Hx Asthma: No Hx of COPD: No Hx Cardiac Disorders: No Hx Congestive Heart Failure: No Hx Pacemaker: No Hx Hypertension: No Hx Thyroid Disease: No Hx Diabetes: No Hx Gastroesophageal Reflux: Yes Hx Renal Disease: No Hx Cancer: No Hx of HIV: No Hx Hepatitis C: No Hx MRSA: No - Vaccination History Hx Tetanus, Diphtheria Vaccination: No Hx Influenza Vaccination: No Hx Pneumococcal Vaccination: No - Social History Hx Tobacco Use: No Hx Chewing Tobacco Use: No Hx Alcohol Use: No Hx Substance Use: No Hx Substance Use Treatment: No Hx Depression: No Hx Physical Abuse: No Hx Emotional Abuse: No Hx Suspected Abuse: No - Female History Patient : No - oopherectomy Family Medical History - Family History Mother Family History: Unknown Living Status: Unknown Hx Cardiac Disease: Yes - mom Hx Family;Other: bipolar disorder mom Physical Exam - Physical Exam General Appearance: Alert, No apparent distress, Unkempt Eye Exam: bilateral normal Ears, Nose, Throat: hearing grossly normal, normal ENT inspection, normal pharynx Neck: non-tender, full range of motion, supple, normal inspection, carotid bruit Respiratory: chest non-tender, lungs clear, normal breath sounds, no respiratory distress Cardiovascular/Chest: normal peripheral pulses, regular rate, rhythm, no edema, no gallop, no JVD, no murmur Peripheral Pulses: radial,right: 2+, radial,left: 2+ Gastrointestinal/Abdominal: normal bowel sounds, non tender, soft Back Exam: normal inspection, no CVA tenderness Extremity: non-tender Neurologic: alert, oriented x 3 Progress - Results/Orders Results/Orders: 02/02/19 15:53 CBC (AUTOMATED) W/AUTO DIFF Stat DIFFERENTIAL,MANUAL BY FLAGS Stat Laboratory Results WBC 2.9 K/mm3 (4.8-10.8) L 02/02/19 15:53 RBC 4.03 M/mm3 (4.20-5.40) L 02/02/19 15:53 Hgb 13.0 gm/dL (12.0-16.0) 02/02/19 15:53 Hct 38.9 % (36.0-47.0) 02/02/19 15:53 MCV 96.6 fl (81.0-99.0) 02/02/19 15:53 MCH 32.3 pg (27.0-31.0) H 02/02/19 15:53 MCHC 33.4 g/dL (33.0-37.0) 02/02/19 15:53 RDW 13.7 % (11.5-14.5) 02/02/19 15:53 Plt Count 47 K/mm3 (130-400) L* 02/02/19 15:53 MPV 10.7 fl (7.40-10.4) H 02/02/19 15:53 Absolute Neuts (auto) Not Reportable 02/02/19 15:53 Absolute Lymphs (auto) Not Reportable 02/02/19 15:53 Absolute Monos (auto) Not Reportable 02/02/19 15:53 Absolute Eos (auto) Not Reportable 02/02/19 15:53 Neutrophils % Not Reportable 02/02/19 15:53 Neutrophils % (Manual) 71.0 % (42.0-78.0) 02/02/19 15:53 Lymphocytes % Not Reportable 02/02/19 15:53 Lymphocytes % (Manual) 24.0 % 02/02/19 15:53 Monocytes % Not Reportable 02/02/19 15:53 Monocytes % (Manual) 3.0 % 02/02/19 15:53 Eosinophils % Not Reportable 02/02/19 15:53 Basophils % Not Reportable 02/02/19 15:53 Eosinophils 2.0 % 02/02/19 15:53 Platelet Estimate Decreased (NORMAL) 02/02/19 15:53 Normal RBC Morphology Normal rbc morph 02/02/19 15:53 Sodium 136 mmol/L (135-145) 02/02/19 15:53 Potassium 4.2 mmol/L (3.6-5.0) 02/02/19 15:53 Chloride 107 mmol/L (101-111) 02/02/19 15:53 Carbon Dioxide 21 mmol/L (21-31) 02/02/19 15:53 Anion Gap 12.2 (12-18) 02/02/19 15:53 BUN 8 mg/dL (7-18) 02/02/19 15:53 Creatinine 0.66 mg/dL (0.6-1.3) 02/02/19 15:53 BUN/Creatinine Ratio 12.1 (10-20) 02/02/19 15:53 Random Glucose 99 mg/dL (70-105) 02/02/19 15:53 Serum Osmolality 270.3 mOsm/L (275-295) L 02/02/19 15:53 Calcium 9.0 mg/dL (8.4-10.2) 02/02/19 15:53 Total Bilirubin 0.4 mg/dL (0.2-1.0) 02/02/19 15:53 AST 32 IU/L (10-42) 02/02/19 15:53 ALT 33 IU/L (10-60) 02/02/19 15:53 Alkaline Phosphatase 123 IU/L (42-121) H 02/02/19 15:53 Serum Total Protein 6.0 gm/dL (6.4-8.2) L 02/02/19 15:53 Albumin 3.3 g/dl (3.2-5.5) 02/02/19 15:53 Globulin 2.7 gm/dL (2.3-3.5) 02/02/19 15:53 Albumin/Globulin Ratio 1.2 (1.1-1.9) 02/02/19 15:53 Urine Color Yellow (Yellow) 02/02/19 15:53 Urine Appearance Clear (Clear) 02/02/19 15:53 Urine pH 6.5 (4.5-7.8) 02/02/19 15:53 Ur Specific [place] 1.020 (1.005-1.030) 02/02/19 15:53 Urine Protein Negative mg/dL 02/02/19 15:53 Urine Glucose (UA) Negative mg/dL (Negative) 02/02/19 15:53 Urine Ketones Negative mg/dL (NEGATIVE) 02/02/19 15:53 Urine Blood Negative (Negative) 02/02/19 15:53 Urine Nitrite Negative 02/02/19 15:53 Urine Bilirubin Negative (NEGATIVE) 02/02/19 15:53 Urine Urobilinogen 0.2 mg/dL (0.2-1.0) 02/02/19 15:53 Ur Leukocyte Esterase Negative (Negative) 02/02/19 15:53 Urine RBC 0-1 /hpf 02/02/19 15:53 Urine WBC 0-1 /hpf 02/02/19 15:53 Ur Epithelial Cells 10-20 /hpf 02/02/19 15:53 Urine Bacteria Rare 02/02/19 15:53 Urine Opiates Screen Negative ng/mL (2000) 02/02/19 15:53 Urine Barbiturates Negative ng/mL (200) 02/02/19 15:53 Ur Phencyclidine Scrn Negative ng/mL (25) 02/02/19 15:53 U Amphetamin/Meth Scrn Negative ng/mL (1000) 02/02/19 15:53 U Benzodiazepines Scrn Negative ng/mL (200) 02/02/19 15:53 U Cocaine Metab Screen Negative ng/mL (300) 02/02/19 15:53 U Cannabinoids Screen Negative ng/mL (50) 02/02/19 15:53 Departure - Departure Clinical Impression: Thrombocytopenia, Malaise Disposition: Discharge to Home or Self Care Condition: Fair Departure Forms: ED Discharge - Pt. Copy, Patient Portal Self Enrollment Referrals: LITA HAMMOND [Primary Care Provider] - 1-2 Weeks Home Medications: Ambulatory Orders Esomeprazole Magnesium [Nexium] 40 mg PO DAILY 10/18/18 Venlafaxine HCl 37.5 mg PO DAILY 10/18/18 Docusate Sodium 100 mg PO BID 11/04/18 Ferrous Gluconate [Fergon] 27 mg PO DAILY 11/04/18 Furosemide 40 mg PO DAILY 11/04/18 Gabapentin 600 mg PO BID 11/04/18 Norman-3 Fatty Acids [Norman 3] 1 cap PO DAILY 11/04/18 Risperidone 1 mg PO DAILY 11/04/18 Hyoscyamine Sulfate [Levsin] 0.125 mg PO Q8HRS #15 tab 01/05/19 Propranolol HCl [Inderal] 20 mg PO BID #60 tab 01/13/19 Potassium Chloride [K-Tab] 20 meq PO CURTIS-OTH-DAY 01/16/19 Tramadol HCl 50 mg PO Q4HR PRN #20 tab 01/18/19 Phenazopyridine HCl [Pyridium] 200 mg PO BID PRN #14 tab 01/27/19 Comments: follow up with PCP on Tuesday to discuss what further can be done for her.
[2019-02-02 17:57] VITALS: BP 130/64; O2SAT 99
== END 2019-02-02 17:40 | disposition home or self-care (01) ==
LOC: ER 15:26
DX: D69.6 Thrombocytopenia, unspecified (principal); R53.81 Other malaise; K21.9 Gastro-esophageal reflux disease without esophagitis; M54.9 Dorsalgia, unspecified; F31.9 Bipolar disorder, unspecified; K74.60 Unspecified cirrhosis of liver; Z88.5 Allergy status to narcotic agent; Z79.899 Other long term (current) drug therapy; Z87.440 Personal history of urinary (tract) infections
CPT/HCPCS: 36415; 80053; 80307; 81001; 85025; J7030

== ENCOUNTER 2019-03-15 09:42 | Emergency (ER) | payer OTHER ==
[2019-03-15] MEDS ORDERED: IPRATROPIUM/ALBUTEROL 3 ML VIAL NEB ONE ×2 (10:13→11:15)
[2019-03-15 11:05] VITALS: TEMP 97.6
--- NOTE | 2019-03-15 11:07 | ED.PDOC ---
History of Present Illness - General Chief Complaint: Respiratory Problem Stated Complaint: Shortness of breath Time Seen by Provider: 03/15/19 09:50 Source: patient Exam Limitations: no limitations - History of Present Illness Initial Comments: The patient is a 53-year-old female presenting to the emergency room secondary to reports of having some increasing shortness of breath over the last few weeks. No productive cough. No fever. Her psoriasis has been flaring recently. No new edema. No chest pain. No palpitations. She has recently had one of her psychiatric medications adjusted but she does not know which. Timing/Duration: 1 week Severity: mild Improving Factors: nothing Worsening Factors: nothing Associated Symptoms: shortness of breath Allergies/Adverse Reactions: Allergies Codeine Allergy (Unknown, Verified 03/15/19 11:09) Home Medications: Ambulatory Orders Esomeprazole Magnesium [Nexium] 40 mg PO DAILY 10/18/18 Venlafaxine HCl 37.5 mg PO DAILY 10/18/18 Docusate Sodium 100 mg PO BID 11/04/18 Ferrous Gluconate [Fergon] 27 mg PO DAILY 11/04/18 Furosemide 40 mg PO DAILY 11/04/18 Gabapentin 600 mg PO BID 11/04/18 Newton-3 Fatty Acids [Newton 3] 1 cap PO DAILY 11/04/18 Risperidone 1 mg PO DAILY 11/04/18 Hyoscyamine Sulfate [Levsin] 0.125 mg PO Q8HRS #15 tab 01/05/19 Propranolol HCl [Inderal] 20 mg PO BID #60 tab 01/13/19 Potassium Chloride [K-Tab] 20 meq PO CURTIS-OTH-DAY 01/16/19 Tramadol HCl 50 mg PO Q4HR PRN #20 tab 01/18/19 Phenazopyridine HCl [Pyridium] 200 mg PO BID PRN #14 tab 01/27/19 predniSONE [Prednisone] 20 mg PO QAM #5 tab 03/15/19 Review of Systems - Review of Systems Constitutional: States: malaise EENTM: States: no symptoms reported Respiratory: States: short of breath Cardiology: States: no symptoms reported Gastrointestinal/Abdominal: States: no symptoms reported Genitourinary: States: no symptoms reported Musculoskeletal: States: no symptoms reported Skin: States: no symptoms reported Neurological: States: no symptoms reported Endocrine: States: no symptoms reported All other Systems: No Change from Baseline Past Medical History (General) - Patient Medical History Hx Seizures: No Hx Stroke: No Hx Dementia: No Hx Asthma: No Hx of COPD: No Hx Cardiac Disorders: No Hx Congestive Heart Failure: No Hx Pacemaker: No Hx Hypertension: No Hx Thyroid Disease: No Hx Diabetes: No Hx Gastroesophageal Reflux: Yes Hx Renal Disease: No Hx Cancer: No Hx of HIV: No Hx Hepatitis C: No Hx MRSA: No - Vaccination History Hx Tetanus, Diphtheria Vaccination: No Hx Influenza Vaccination: No Hx Pneumococcal Vaccination: No - Social History Hx Tobacco Use: No Hx Chewing Tobacco Use: No Hx Alcohol Use: No Hx Substance Use: No Hx Substance Use Treatment: No Hx Depression: No Hx Physical Abuse: No Hx Emotional Abuse: No Hx Suspected Abuse: No - Female History Patient : No - oopherectomy Family Medical History - Family History Mother Family History: Unknown Living Status: Unknown Hx Cardiac Disease: Yes - mom Hx Family;Other: bipolar disorder mom Physical Exam - Physical Exam General Appearance: Alert, No apparent distress, Unkempt, Other - flat affect Eye Exam: bilateral normal Ears, Nose, Throat: hearing grossly normal, normal ENT inspection - poor dentition Neck: non-tender, supple Respiratory: lungs clear, normal breath sounds, no respiratory distress, no accessory muscle use Cardiovascular/Chest: normal peripheral pulses, regular rate, rhythm, no edema Peripheral Pulses: radial,right: 2+, radial,left: 2+, dorsalis pedis,right: 2+, dorsalis pedis,left: 2+ Gastrointestinal/Abdominal: non tender, soft Rectal Exam: deferred Back Exam: no CVA tenderness, no vertebral tenderness Extremity: normal range of motion, non-tender, no pedal edema, normal capillary refill Neurologic: tobacco roller II-XII nml as tested, alert, oriented x 3, other - flat affect Skin Exam: other - extensive seborrhea of the scalp and psoriasis elsewhere Comments: Vital Signs - 24 hr 03/15/19 09:45 Temperature 97.6 F Pulse Rate [ 50 L Left Radial] Respiratory 20 Rate Blood Pressure 137/68 [Left Arm] O2 Sat by Pulse 98 Oximetry Progress - Progress Progress: 03/15/19 11:09 the patient is a 53-year-old female presenting to the emergency room secondary to a sensation of mild shortness of breath for the last week or 2. She did receive a breathing treatment which did not make much difference. I believe she is primarily symptomatic from her bradycardia. She does take propranolol 20 mg twice daily. I'm going to have her reduce this to 10 mg twice daily. She is not hypotensive. She is not hypoxic. Lungs are clear. I want her to follow back up with her primary care doctor within a week for reevaluation. I'm also going to place the patient on 20 mg of prednisone each morning for the next 5 days primarily to help reduce the spread of her psoriasis but also to help reduce any component of autoimmune disease that may be affecting the lungs at this point as well. ER warnings were given. - Results/Orders Results/Orders: I see no evidence of any acute pathology on the chest x-ray. Final read is pending due to technical difficulties. Tilt test is negative however the patient has significant bradycardia that is not changed from one position to the next. This does appear to be a sinus bradycardia on telemetry. Departure - Departure Clinical Impression: Bradycardia, sinus Dyspnea Qualifiers: Dyspnea type: dyspnea on exertion Qualified Code(s): R06.09 - Other forms of dyspnea Disposition: Discharge to Home or Self Care Condition: Fair Departure Forms: ED Discharge - Pt. Copy, Patient Portal Self Enrollment Instructions: Bradycardia (DC), Psoriasis (DC) Diet: regular diet Activity: increase activity as tolerated Referrals: LITA HAMMOND [Primary Care Provider] - 1-2 Weeks Prescriptions: predniSONE [Prednisone] 20 mg PO QAM #5 tab Home Medications: Ambulatory Orders Esomeprazole Magnesium [Nexium] 40 mg PO DAILY 10/18/18 Venlafaxine HCl 37.5 mg PO DAILY 10/18/18 Docusate Sodium 100 mg PO BID 11/04/18 Ferrous Gluconate [Fergon] 27 mg PO DAILY 11/04/18 Furosemide 40 mg PO DAILY 11/04/18 Gabapentin 600 mg PO BID 11/04/18 Newton-3 Fatty Acids [Newton 3] 1 cap PO DAILY 11/04/18 Risperidone 1 mg PO DAILY 11/04/18 Hyoscyamine Sulfate [Levsin] 0.125 mg PO Q8HRS #15 tab 01/05/19 Propranolol HCl [Inderal] 20 mg PO BID #60 tab 01/13/19 Potassium Chloride [K-Tab] 20 meq PO CURTIS-OTH-DAY 01/16/19 Tramadol HCl 50 mg PO Q4HR PRN #20 tab 01/18/19 Phenazopyridine HCl [Pyridium] 200 mg PO BID PRN #14 tab 01/27/19 predniSONE [Prednisone] 20 mg PO QAM #5 tab 03/15/19 Additional Instructions: the patient is a 53-year-old female presenting to the emergency room secondary to a sensation of mild shortness of breath for the last week or 2. She did receive a breathing treatment which did not make much difference. I believe she is primarily symptomatic from her bradycardia. She does take propranolol 20 mg twice daily. I'm going to have her reduce this to 10 mg twice daily. She is not hypotensive. She is not hypoxic. Lungs are clear. I want her to follow back up with her primary care doctor within a week for reevaluation. I'm also going to place the patient on 20 mg of prednisone each morning for the next 5 days primarily to help reduce the spread of her psoriasis but also to help reduce any component of autoimmune disease that may be affecting the lungs at this point as well. ER warnings were given.
[2019-03-15] MEDS ORDERED: predniSONE 20 MG TAB PO ONE (11:13)
--- NOTE | 2019-03-15 11:22 | RAD ---
EXAM DESCRIPTION: Chest,2 Views CLINICAL HISTORY: 53 years Female, sob COMPARISON: 01/17/2019 TECHNIQUE: Frontal and lateral views of the chest. IMPRESSION: Stable size cardiac silhouette. Scattered basilar atelectasis without lobar or masslike consolidation. No pleural effusion or pneumothorax. Thoracic spondylosis without acute compression deformity. Electronically signed by: Blake Gayle MD 03/15/2019 11:20 AM CDT
[2019-03-15 11:34] VITALS: BP 127/96; O2SAT 100
== END 2019-03-15 11:30 | disposition home or self-care (01) ==
LOC: ER 09:42
DX: R06.02 Shortness of breath (principal); R00.1 Bradycardia, unspecified; L40.9 Psoriasis, unspecified; K21.9 Gastro-esophageal reflux disease without esophagitis; Z79.899 Other long term (current) drug therapy; Z88.5 Allergy status to narcotic agent
CPT/HCPCS: 71046; 94640; J7512; J7620

== ENCOUNTER 2019-04-19 11:23 | Emergency (ER) | payer OTHER ==
[2019-04-19] MEDS ORDERED: SODIUM CHLORIDE 0.9% (FLUSH) 10 ML SYG IV PRN (12:28)
[2019-04-19] MEDS ORDERED: ONDANSETRON INJ 4 MG/2 ML VIAL IV ONE (12:28)
[2019-04-19] MEDS ORDERED: SODIUM CHLORIDE 0.9% 1000ML 1,000 ML IVS ONE (12:29)
--- NOTE | 2019-04-19 13:01 | RAD ---
EXAM DESCRIPTION: Chest,1 View CLINICAL HISTORY: chest pain COMPARISON: March 15, 2019 IMPRESSION: Single AP portable upright view of the chest shows mild enlargement of the cardiac silhouette without pulmonary vascular congestion.. Lungs are normally aerated and clear. No obvious pleural effusion or pneumothorax is seen. Electronically signed by: Samuel Mckeon MD 04/19/2019 1:00 PM CDT
--- NOTE | 2019-04-19 15:31 | ED.PDOC ---
History of Present Illness - General Chief Complaint: Chest Pain/KS Stated Complaint: dizziness, chest pain Time Seen by Provider: 04/19/19 12:28 Source: patient, Vital Signs reviewed, family - Exam Limitations: no limitations - History of Present Illness Initial Comments: Pt presents with c/o weakness, nausea, dizziness and chest pain x 24 hours. Pt also c/o dehydration and generalized weakness. Pt denies sob/n/v/d. Pt denies parasthesias. Nothing seems to make it better or worse. Timing/Duration: 24 hours Severity: mild Improving Factors: nothing Worsening Factors: nothing Associated Symptoms: chest pain, malaise Allergies/Adverse Reactions: Allergies Codeine Allergy (Unknown, Verified 03/15/19 11:09) Home Medications: Ambulatory Orders Esomeprazole Magnesium [Nexium] 40 mg PO DAILY 10/18/18 Venlafaxine HCl 37.5 mg PO DAILY 10/18/18 Docusate Sodium 100 mg PO BID 11/04/18 Ferrous Gluconate [Fergon] 27 mg PO DAILY 11/04/18 Furosemide 40 mg PO DAILY 11/04/18 Gabapentin 600 mg PO BID 11/04/18 Eldred-3 Fatty Acids [Eldred 3] 1 cap PO DAILY 11/04/18 Risperidone 1 mg PO DAILY 11/04/18 Hyoscyamine Sulfate [Levsin] 0.125 mg PO Q8HRS #15 tab 01/05/19 Propranolol HCl [Inderal] 20 mg PO BID #60 tab 01/13/19 Potassium Chloride [K-Tab] 20 meq PO CURTIS-OTH-DAY 01/16/19 Tramadol HCl 50 mg PO Q4HR PRN #20 tab 01/18/19 Phenazopyridine HCl [Pyridium] 200 mg PO BID PRN #14 tab 01/27/19 predniSONE [Prednisone] 20 mg PO QAM #5 tab 03/15/19 Review of Systems - Review of Systems Constitutional: States: see HPI EENTM: States: see HPI Respiratory: States: see HPI Cardiology: States: see HPI, chest pain. Denies: edema, palpitations, syncope Gastrointestinal/Abdominal: States: no symptoms reported. Denies: abdominal pain, diarrhea Genitourinary: States: see HPI. Denies: discharge, frequency, hematuria Musculoskeletal: States: see HPI Skin: States: no symptoms reported Neurological: States: see HPI Endocrine: States: no symptoms reported Hematologic/Lymphatic: States: no symptoms reported All other Systems: Reviewed and Negative Past Medical History (General) - Patient Medical History Hx Seizures: No Hx Stroke: No Hx Dementia: No Hx Asthma: No Hx of COPD: No Hx Cardiac Disorders: No Hx Congestive Heart Failure: No Hx Pacemaker: No Hx Hypertension: No Hx Thyroid Disease: No Hx Diabetes: No Hx Gastroesophageal Reflux: Yes Hx Renal Disease: No Hx Cancer: No Hx of HIV: No Hx Hepatitis C: No Hx MRSA: No Surgical History: other - Vaccination History Hx Tetanus, Diphtheria Vaccination: No Hx Influenza Vaccination: No Hx Pneumococcal Vaccination: No - Social History Hx Tobacco Use: No Hx Chewing Tobacco Use: No Hx Alcohol Use: No Hx Substance Use: No Hx Substance Use Treatment: No Hx Depression: No Hx Physical Abuse: No Hx Emotional Abuse: No Hx Suspected Abuse: No - Female History Patient : No - oopherectomy Family Medical History - Family History Mother Family History: Unknown Living Status: Unknown Hx Cardiac Disease: Yes - mom Hx Family;Other: bipolar disorder mom Physical Exam - Physical Exam General Appearance: Alert, Anxious, Comfortable, Well Developed, Well Nourished Eye Exam: bilateral normal Ears, Nose, Throat: hearing grossly normal, normal ENT inspection, normal pharynx Neck: non-tender, full range of motion, supple, normal inspection Respiratory: chest non-tender, lungs clear, normal breath sounds, no respiratory distress, no accessory muscle use Cardiovascular/Chest: regular rate, rhythm, no edema, no gallop, no JVD, no murmur, JVD Peripheral Pulses: radial,right: 2+, radial,left: 2+ Gastrointestinal/Abdominal: normal bowel sounds, non tender, soft Extremity: normal range of motion, non-tender 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 Pt tolerating po. Plan on d/c home with f/u with pcp. D/w the pt and her and they voice understanding and agreement with the POC. - Results/Orders Results/Orders: 04/19/19 11:45 EKG STAT 04/19/19 12:28 IV Care:Saline Lock per Protoc QSHIFT Telemetry .ONCE Sodium Chloride 0.9% (Flush) [Saline Flush Syringe] 10 ml IV PRN PRN Pulse Ox Stat Laboratory Results - last 24 hr 04/19/19 04/19/19 11:51 12:54 WBC 3.4 L RBC 4.17 L Hgb 13.8 Hct 40.3 MCV 96.8 MCH 33.1 H MCHC 34.2 RDW 15.7 H Plt Count 63 L MPV 10.9 H Absolute Neuts (auto) 2.00 Absolute Lymphs (auto) 1.10 Absolute Monos (auto) 0.20 Absolute Eos (auto) 0.10 Absolute Basos (auto) 0.00 Neutrophils % 58.9 Lymphocytes % 31.9 Monocytes % 6.5 Eosinophils % 1.7 Basophils % 1.0 PT 10.8 INR 1.08 PTT (SP) 24.1 Sodium 139 Potassium 3.1 L Chloride 101 Carbon Dioxide 26 Anion Gap 15.1 BUN 7 Creatinine 0.49 L BUN/Creatinine Ratio 14.3 Random Glucose 119 H Serum Osmolality 276.7 Calcium 8.9 Magnesium 1.8 Creatine Kinase 90 CK-MB (CK-2) 1.3 CK-MB (CK-2) % Not Reportable Troponin I < 0.02 B-Natriuretic Peptide 11.6 Urine Color Yellow Urine Appearance Sl cloudy Urine pH 7.0 Ur Specific [place] 1.015 Urine Protein Negative Urine Glucose (UA) Negative Urine Ketones Negative Urine Blood Trace-intact H Urine Nitrite Negative Urine Bilirubin Negative Urine Urobilinogen 1.0 Ur Leukocyte Esterase Negative Urine RBC 0-1 Urine WBC 1-3 Ur Epithelial Cells 10-20 Urine Bacteria 1+ Chest,1 View CLINICAL HISTORY: chest pain COMPARISON: March 15, 2019 IMPRESSION: Single AP portable upright view of the chest shows mild enlargement of the cardiac silhouette without pulmonary vascular congestion.. Lungs are normally aerated and clear. No obvious pleural effusion or pneumothorax is seen. Electronically signed by: Samuel Mckeon MD 04/19/2019 1:00 PM CDT - EKG/XRAY/CT Comments: NSR@60bpm, NAD, non specific st changes, prolonged QT, abnormal ekg. Departure - Departure Clinical Impression: Dehydration, Weakness Chest pain Qualifiers: Chest pain type: unspecified Qualified Code(s): R07.9 - Chest pain, unspecified Time of Disposition: 15:43 Disposition: Discharge to Home or Self Care Condition: Good Departure Forms: ED Discharge - Pt. Copy, Patient Portal Self Enrollment Referrals: LITA HAMMOND [Primary Care Provider] - 1-2 Days Home Medications: Ambulatory Orders Esomeprazole Magnesium [Nexium] 40 mg PO DAILY 10/18/18 Venlafaxine HCl 37.5 mg PO DAILY 10/18/18 Docusate Sodium 100 mg PO BID 11/04/18 Ferrous Gluconate [Fergon] 27 mg PO DAILY 11/04/18 Furosemide 40 mg PO DAILY 11/04/18 Gabapentin 600 mg PO BID 11/04/18 Eldred-3 Fatty Acids [Eldred 3] 1 cap PO DAILY 11/04/18 Risperidone 1 mg PO DAILY 11/04/18 Hyoscyamine Sulfate [Levsin] 0.125 mg PO Q8HRS #15 tab 01/05/19 Propranolol HCl [Inderal] 20 mg PO BID #60 tab 01/13/19 Potassium Chloride [K-Tab] 20 meq PO CURTIS-OTH-DAY 01/16/19 Tramadol HCl 50 mg PO Q4HR PRN #20 tab 01/18/19 Phenazopyridine HCl [Pyridium] 200 mg PO BID PRN #14 tab 01/27/19 predniSONE [Prednisone] 20 mg PO QAM #5 tab 03/15/19
[2019-04-19 16:22] VITALS: BP 133/81; TEMP 97.4; O2SAT 97
== END 2019-04-19 16:20 | disposition home or self-care (01) ==
LOC: ER 11:23
DX: R07.9 Chest pain, unspecified (principal); E86.0 Dehydration; R53.1 Weakness; I45.81 Long QT syndrome; K21.9 Gastro-esophageal reflux disease without esophagitis; Z79.899 Other long term (current) drug therapy; Z88.5 Allergy status to narcotic agent
CPT/HCPCS: 36415; 71045; 80048; 81001; 82550; 82553; 83880; 84484; 85025; 85610; 85730; 93005; J2405; J7030

== ENCOUNTER 2019-05-24 13:49 | Emergency (ER) | payer OTHER ==
--- NOTE | 2019-05-24 14:17 | ED.PDOC ---
History of Present Illness - General Chief Complaint: Neuro Symptoms/Deficits Stated Complaint: psychosis Time Seen by Provider: 05/24/19 14:00 - History of Present Illness Initial Comments: Pt w/ h/o schizophrenia/bipolar disoder presents with c/o increased agitation and paranoia. reports that the patient has been yelling at the tv and "wants to get her help before she gets worse." Says he is worried her agitation is going to become more severe and he won't be able to take care of her. Also notes that she has been paranoid about the color blue. Denies SI/HI/hallucinations. Allergies/Adverse Reactions: Allergies Codeine Allergy (Unknown, Verified 03/15/19 11:09) Home Medications: Ambulatory Orders Esomeprazole Magnesium [Nexium] 40 mg PO DAILY 10/18/18 Venlafaxine HCl 37.5 mg PO DAILY 10/18/18 Docusate Sodium 100 mg PO BID 11/04/18 Ferrous Gluconate [Fergon] 27 mg PO DAILY 11/04/18 Furosemide 40 mg PO DAILY 11/04/18 Gabapentin 600 mg PO BID 11/04/18 [place]-3 Fatty Acids [[place] 3] 1 cap PO DAILY 11/04/18 Risperidone 1 mg PO DAILY 11/04/18 Hyoscyamine Sulfate [Levsin] 0.125 mg PO Q8HRS #15 tab 01/05/19 Propranolol HCl [Inderal] 20 mg PO BID #60 tab 01/13/19 Potassium Chloride [K-Tab] 20 meq PO CURTIS-OTH-DAY 01/16/19 Tramadol HCl 50 mg PO Q4HR PRN #20 tab 01/18/19 Phenazopyridine HCl [Pyridium] 200 mg PO BID PRN #14 tab 01/27/19 predniSONE [Prednisone] 20 mg PO QAM #5 tab 03/15/19 Review of Systems - Review of Systems Constitutional: States: no symptoms reported EENTM: States: no symptoms reported Respiratory: States: no symptoms reported Cardiology: States: no symptoms reported Gastrointestinal/Abdominal: States: no symptoms reported Genitourinary: States: no symptoms reported Musculoskeletal: States: no symptoms reported Skin: States: no symptoms reported Neurological: States: anxiety, emotional problems Endocrine: States: no symptoms reported Hematologic/Lymphatic: States: no symptoms reported Past Medical History (General) - Patient Medical History Hx Seizures: No Hx Stroke: No Hx Dementia: No Hx Asthma: No Hx of COPD: No Hx Cardiac Disorders: No Hx Congestive Heart Failure: No Hx Pacemaker: No Hx Hypertension: No Hx Thyroid Disease: No Hx Diabetes: No Hx Gastroesophageal Reflux: Yes Hx Renal Disease: No Hx Cancer: No Hx of HIV: No Hx Hepatitis C: No Hx MRSA: No - Vaccination History Hx Tetanus, Diphtheria Vaccination: No Hx Influenza Vaccination: No Hx Pneumococcal Vaccination: No - Social History Hx Tobacco Use: No Hx Chewing Tobacco Use: No Hx Alcohol Use: No Hx Substance Use: No Hx Substance Use Treatment: No Hx Depression: No Hx Physical Abuse: No Hx Emotional Abuse: No Hx Suspected Abuse: No - Female History Patient : No - oopherectomy Family Medical History - Family History Mother Family History: Unknown Living Status: Unknown Hx Cardiac Disease: Yes - mom Hx Family;Other: bipolar disorder mom Physical Exam - Physical Exam General Appearance: Alert, Comfortable Neck: full range of motion, supple Respiratory: lungs clear, normal breath sounds Cardiovascular/Chest: regular rate, rhythm, no edema Peripheral Pulses: radial,right: 2+, radial,left: 2+ Gastrointestinal/Abdominal: non tender, soft Extremity: non-tender, normal inspection Neurologic: no motor/sensory deficits, alert, other - labile affect, tearful Skin Exam: other - multiple plaques and scaling patches of psoriasis Progress - Progress Progress: 05/24/19 14:18 MDM pt w/ pmh of bipolar/schizophrenia, chf presenting with due to concern for increased agitation and delusions/paranoia. Patient denies SI/HI/hallucinations but patient's reports that she has been hallucinating at home. Plan to obtain labs for medical clearance and consult [facility] for evaluation for possible inpatient placement. 05/24/19 19:20 Patient was met by [facility] call center support representative and was deemed appropriate for inpatient admission to [facility]. She is voluntarily agreeing to transfer. [facility] call center support representative will personally drive her to the hospital. - Results/Orders Results/Orders: Laboratory Results - last 24 hr 05/24/19 05/24/19 05/24/19 14:36 14:36 14:36 WBC 4.0 L RBC 4.05 L Hgb 14.4 Hct 39.6 MCV 97.7 MCH 35.5 H MCHC 36.4 RDW 16.6 H Plt Count 53 L MPV 11.1 H Absolute Neuts (auto) 2.50 Absolute Lymphs (auto) 1.10 Absolute Monos (auto) 0.30 Absolute Eos (auto) 0.10 Absolute Basos (auto) 0.00 Neutrophils % 63.0 Lymphocytes % 28.0 Monocytes % 6.4 Eosinophils % 1.8 Basophils % 0.8 Sodium 135 Potassium 2.8 L Chloride 98 L Carbon Dioxide 25 Anion Gap 14.8 BUN 13 Creatinine 0.83 BUN/Creatinine Ratio 15.7 Random Glucose 124 H Serum Osmolality 271.6 L Calcium 9.3 Total Bilirubin 1.5 H AST 45 H ALT 34 Alkaline Phosphatase 125 H Serum Total Protein 6.0 L Albumin 3.5 Globulin 2.5 Albumin/Globulin Ratio 1.4 Urine Color Urine Appearance Urine pH Ur Specific [place] Urine Protein Urine Glucose (UA) Urine Ketones Urine Blood Urine Nitrite Urine Bilirubin Urine Urobilinogen Ur Leukocyte Esterase Urine RBC Urine WBC Ur Epithelial Cells Amorphous Sediment Urine Bacteria Urine Opiates Screen Urine Barbiturates Ur Phencyclidine Scrn U Amphetamin/Meth Scrn U Benzodiazepines Scrn U Cocaine Metab Screen U Cannabinoids Screen Ethyl Alcohol < 1.00 05/24/19 05/24/19 05/24/19 14:50 14:50 17:40 WBC RBC Hgb Hct MCV MCH MCHC RDW Plt Count MPV Absolute Neuts (auto) Absolute Lymphs (auto) Absolute Monos (auto) Absolute Eos (auto) Absolute Basos (auto) Neutrophils % Lymphocytes % Monocytes % Eosinophils % Basophils % Sodium Potassium 3.0 L Chloride Carbon Dioxide Anion Gap BUN Creatinine BUN/Creatinine Ratio Random Glucose Serum Osmolality Calcium Total Bilirubin AST ALT Alkaline Phosphatase Serum Total Protein Albumin Globulin Albumin/Globulin Ratio Urine Color Yellow Urine Appearance Cloudy Urine pH 7.0 Ur Specific [place] 1.015 Urine Protein Negative Urine Glucose (UA) Negative Urine Ketones Trace Urine Blood Negative Urine Nitrite Negative Urine Bilirubin Small H Urine Urobilinogen >= 8.0 H Ur Leukocyte Esterase Negative Urine RBC 0-1 Urine WBC 0 Ur Epithelial Cells 20-30 Amorphous Sediment 4+ Urine Bacteria 1+ Urine Opiates Screen Negative Urine Barbiturates Negative Ur Phencyclidine Scrn Negative U Amphetamin/Meth Scrn Negative U Benzodiazepines Scrn Negative U Cocaine Metab Screen Negative U Cannabinoids Screen Negative Ethyl Alcohol Departure - Departure Clinical Impression: Acute psychosis, Hypokalemia Disposition: Transfer to [facility] Hospital Condition: Fair Departure Forms: ED Discharge - Pt. Copy, Patient Portal Self Enrollment Referrals: LITA HAMMOND [Primary Care Provider] - 1-2 Weeks Home Medications: Ambulatory Orders Esomeprazole Magnesium [Nexium] 40 mg PO DAILY 10/18/18 Venlafaxine HCl 37.5 mg PO DAILY 10/18/18 Docusate Sodium 100 mg PO BID 11/04/18 Ferrous Gluconate [Fergon] 27 mg PO DAILY 11/04/18 Furosemide 40 mg PO DAILY 11/04/18 Gabapentin 600 mg PO BID 11/04/18 [place]-3 Fatty Acids [[place] 3] 1 cap PO DAILY 11/04/18 Risperidone 1 mg PO DAILY 11/04/18 Hyoscyamine Sulfate [Levsin] 0.125 mg PO Q8HRS #15 tab 01/05/19 Propranolol HCl [Inderal] 20 mg PO BID #60 tab 01/13/19 Potassium Chloride [K-Tab] 20 meq PO CURTIS-OTH-DAY 01/16/19 Tramadol HCl 50 mg PO Q4HR PRN #20 tab 01/18/19 Phenazopyridine HCl [Pyridium] 200 mg PO BID PRN #14 tab 01/27/19 predniSONE [Prednisone] 20 mg PO QAM #5 tab 03/15/19 Transfer to Outside Facility - Transfer Information Decision to Transfer Date: 05/24/19 Decision to Transfer Time: 19:18 Reason for Transfer: specialized care not available Accepting Provider:: Dr. Ramos Accepting Facility: [facility]
[2019-05-24] MEDS ORDERED: POTASSIUM CHLORIDE 20 MEQ TAB PO ONE (16:11)
[2019-05-24 17:32] VITALS: O2SAT 100
[2019-05-24 20:17] VITALS: BP 117/70; TEMP 97.8
== END 2019-05-24 20:19 ==
LOC: ER 13:49
DX: F23 Brief psychotic disorder (principal); E87.6 Hypokalemia; F20.9 Schizophrenia, unspecified; F31.9 Bipolar disorder, unspecified; K21.9 Gastro-esophageal reflux disease without esophagitis; Z79.899 Other long term (current) drug therapy; Z88.5 Allergy status to narcotic agent

== ENCOUNTER 2019-06-30 12:46 | Emergency (ER) | payer OTHER ==
[2019-06-30] MEDS ORDERED: NITROGLYCERIN 0.4 MG 25 EA TAB SL PRN (12:53)
[2019-06-30] MEDS ORDERED: SODIUM CHLORIDE 0.9% (FLUSH) 10 ML SYG IV PRN (12:53)
[2019-06-30] MEDS ORDERED: ASPIRIN (CHEWABLE) 81 MG TAB PO ONE (12:53)
--- NOTE | 2019-06-30 12:56 | ED.PDOC ---
History of Present Illness - General Time Seen by Provider: 06/30/19 12:52 Source: patient - History of Present Illness Initial Comments: 54 yo female who presents with cc of chest pain. Onset at home a couple hours ago, located to right chest wall, no radiation, constant, sharp, 9/10 severity, worse with lying flat and palpation, not worse with exertion, nothing tried for relief. Denies any cardiac hx. Reports cough but nonproductive, denies fevers, chill, dyspnea. Also reports some nausea without emesis. Denies any abd pain, edema. Allergies/Adverse Reactions: Allergies Codeine Allergy (Unknown, Verified 06/30/19 13:30) Home Medications: Ambulatory Orders RX: Esomeprazole Magnesium [Nexium] 40 mg PO DAILY 10/18/18 RX: Venlafaxine HCl 37.5 mg PO DAILY 10/18/18 Ferrous Gluconate [Fergon] 27 mg PO DAILY 11/04/18 Gabapentin 600 mg PO BID 11/04/18 Harris-3 Fatty Acids [Harris 3] 1 cap PO DAILY 11/04/18 RX: Docusate Sodium 100 mg PO BID 11/04/18 RX: Furosemide 40 mg PO DAILY 11/04/18 Risperidone 1 mg PO DAILY 11/04/18 Hyoscyamine Sulfate [Levsin] 0.125 mg PO Q8HRS #15 tab 01/05/19 RX: Propranolol HCl [Inderal] 20 mg PO BID #60 tab 01/13/19 RX: Potassium Chloride [K-Tab] 20 meq PO CURTIS-OTH-DAY 01/16/19 RX: Tramadol HCl 50 mg PO Q4HR PRN #20 tab 01/18/19 Phenazopyridine HCl [Pyridium] 200 mg PO BID PRN #14 tab 01/27/19 predniSONE [Prednisone] 20 mg PO QAM #5 tab 03/15/19 Review of Systems - Review of Systems Review of Systems: 06/30/19 12:56 as per HPI All other Systems: Reviewed and Negative Past Medical History (General) - Patient Medical History Hx Seizures: No Hx Stroke: No Hx Dementia: No Hx Asthma: No Hx of COPD: No Hx Cardiac Disorders: No Hx Congestive Heart Failure: No Hx Pacemaker: No Hx Hypertension: No Hx Thyroid Disease: No Hx Diabetes: No Hx Gastroesophageal Reflux: Yes Hx Renal Disease: No Hx Cancer: No Hx of HIV: No Hx Hepatitis C: No Hx MRSA: No - Vaccination History Hx Tetanus, Diphtheria Vaccination: No Hx Influenza Vaccination: No Hx Pneumococcal Vaccination: No - Social History Hx Tobacco Use: No Hx Chewing Tobacco Use: No Hx Alcohol Use: No Hx Substance Use: No Hx Substance Use Treatment: No Hx Depression: No Hx Physical Abuse: No Hx Emotional Abuse: No Hx Suspected Abuse: No - Female History Patient : No - oopherectomy Family Medical History - Family History Mother Family History: Unknown Living Status: Unknown Hx Cardiac Disease: Yes - mom Hx Family;Other: bipolar disorder mom Physical Exam - Physical Exam General Appearance: Alert, Comfortable, No apparent distress Eyes, Ears, Nose, Throat Exam: PERRL/EOMI, normal ENT inspection, pharynx normal Neck: non-tender, full range of motion, supple, normal inspection Respiratory: lungs clear, normal breath sounds, no respiratory distress, other - marked TTP right chest wall without deformity/bruising/swelling Cardiovascular/Chest: normal peripheral pulses, regular rate, rhythm, no edema, no murmur Gastrointestinal/Abdominal: non tender, soft, no organomegaly Extremity: normal range of motion, non-tender, normal inspection, no pedal edema, no calf tenderness 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 Consider also ACS vs PNA vs other -cardiac work-up, labs -trial of ASA, NTG for pain, Zofran for nausea 06/30/19 15:13 -Pain much improved in ED with rest. Troponin <0.02. Pt with noted pancytopenia (suspected 2/2 known liver dz) but appears stable from chronic. Otherwise workup pretty unremarkable. CXR shows no acute processes per my read. -suspect chest pain MSK in nature especially given tenderness to palpation. Discussed home trx and close PCP f/u as well as return warnings. -dc home in good condition Damian Bianchi MD Billing #[id number] - Results/Orders Results/Orders: 06/30/19 13:00 EKG STAT Laboratory Results - last 24 hr 1206/30/19 06/30/19 12:53 13:16 13:16 WBC 2.6 L RBC 3.52 L Hgb 12.3 Hct 36.2 MCV 102.8 H MCH 35.0 H MCHC 34.1 RDW 14.1 Plt Count 57 L MPV 11.5 H Absolute Neuts (auto) 1.60 L Absolute Lymphs (auto) 0.70 L Absolute Monos (auto) 0.20 Absolute Eos (auto) 0.10 Absolute Basos (auto) 0.00 Neutrophils % 62.0 Lymphocytes % 28.2 Monocytes % 6.5 Eosinophils % 2.3 Basophils % 1.0 Sodium 138 Potassium 3.3 L Chloride 103 Carbon Dioxide 29 Anion Gap 9.3 L BUN 8 Creatinine 0.55 L BUN/Creatinine Ratio 14.5 Random Glucose 172 H Serum Osmolality 278.1 Calcium 8.7 Troponin I < 0.02 B-Natriuretic Peptide 75.6 06/30/19 14:21 WBC RBC Hgb Hct MCV MCH MCHC RDW Plt Count MPV Absolute Neuts (auto) Absolute Lymphs (auto) Absolute Monos (auto) Absolute Eos (auto) Absolute Basos (auto) Neutrophils % Lymphocytes % Monocytes % Eosinophils % Basophils % Sodium Potassium Chloride Carbon Dioxide Anion Gap BUN Creatinine BUN/Creatinine Ratio Random Glucose Serum Osmolality Calcium Troponin I < 0.02 B-Natriuretic Peptide - EKG/XRAY/CT EKG: Sinus - NSR, HR 55, nonspecific ST T wave Chg, Unchanged from - 04/19/19 EKG Departure - Departure Clinical Impression: Musculoskeletal chest pain Time of Disposition: 15:17 Disposition: Discharge to Home or Self Care Condition: Good Departure Forms: ED Discharge - Pt. Copy, Patient Portal Self Enrollment Instructions: DI for Chest Pain Diet: resume usual diet Referrals: LITA HAMMOND [Primary Care Provider] - 1-2 Weeks Home Medications: Ambulatory Orders RX: Esomeprazole Magnesium [Nexium] 40 mg PO DAILY 10/18/18 RX: Venlafaxine HCl 37.5 mg PO DAILY 10/18/18 Ferrous Gluconate [Fergon] 27 mg PO DAILY 11/04/18 Gabapentin 600 mg PO BID 11/04/18 [place]-3 Fatty Acids [[place] 3] 1 cap PO DAILY 11/04/18 RX: Docusate Sodium 100 mg PO BID 11/04/18 RX: Furosemide 40 mg PO DAILY 11/04/18 Risperidone 1 mg PO DAILY 11/04/18 Hyoscyamine Sulfate [Levsin] 0.125 mg PO Q8HRS #15 tab 01/05/19 RX: Propranolol HCl [Inderal] 20 mg PO BID #60 tab 01/13/19 RX: Potassium Chloride [K-Tab] 20 meq PO CURTIS-OTH-DAY 01/16/19 RX: Tramadol HCl 50 mg PO Q4HR PRN #20 tab 01/18/19 Phenazopyridine HCl [Pyridium] 200 mg PO BID PRN #14 tab 01/27/19 predniSONE [Prednisone] 20 mg PO QAM #5 tab 03/15/19 Additional Instructions: Continue taking Tylenol & ibuprofen as needed for chest pain. Remain well hydrated and gradually advance activity level as tolerated. Follow up with your primary care doctor for further discussion of your symptoms in next 1-2 weeks.
[2019-06-30] MEDS ORDERED: ONDANSETRON INJ 4 MG/2 ML VIAL IV ONE (12:58)
--- NOTE | 2019-06-30 13:44 | RAD ---
EXAM: XR Chest, 1 View CLINICAL HISTORY: chest pain TECHNIQUE: Frontal view of the chest. COMPARISON: 04/19/2019. FINDINGS: Limitations: None. Lungs: Unremarkable. No consolidation. Pleural space: Unremarkable. No pneumothorax. Heart: Unremarkable. No cardiomegaly. Mediastinum: Unremarkable. Bones/joints: Unremarkable. IMPRESSION: No acute findings in the chest. Electronically signed by: Steph Guillermo MD 06/30/2019 1:42 PM [employer]
[2019-06-30] MEDS ORDERED: POTASSIUM CHLORIDE 20 MEQ TAB PO ONE (13:46)
[2019-06-30 17:27] VITALS: BP 100/56; TEMP 97.1; O2SAT 99
== END 2019-06-30 15:45 | disposition home or self-care (01) ==
LOC: ER 12:46
DX: R07.89 Other chest pain (principal); R11.0 Nausea; K21.9 Gastro-esophageal reflux disease without esophagitis; Z79.899 Other long term (current) drug therapy; Z88.5 Allergy status to narcotic agent
CPT/HCPCS: 36415; 71045; 80048; 83880; 84484; 85025; 93005; J2405

== ENCOUNTER 2019-07-11 22:17 | Emergency (ER) | payer OTHER ==
[2019-07-11 23:14] VITALS: TEMP 97.4
[2019-07-11] MEDS ORDERED: IPRATROPIUM/ALBUTEROL 3 ML VIAL NEB ONE (23:34)
--- NOTE | 2019-07-11 23:51 | RAD ---
EXAM: Chest,2 Views HISTORY: Shortness of breath COMPARISON: Chest one view 06/30/2019 TECHNIQUE: Chest two views PA and lateral FINDINGS: Patient is mildly rightward rotated. Heart size and pulmonary vessels within normal limits. Mild symmetric bilateral lower lungs/chest density on PA view most likely represents overlying breast/chest wall attenuation artifact. No lung mass, consolidation, or significant pulmonary edema. No significant pleural effusion or pneumothorax. Bones unremarkable. IMPRESSION: Unremarkable chest radiograph. Electronically signed by: Jason Richardson MD 07/11/2019 11:50 PM LABORATORY [employer]PLER
--- NOTE | 2019-07-12 00:41 | ED.PDOC ---
History of Present Illness - General Chief Complaint: Respiratory Problem Stated Complaint: "can't breathe" Time Seen by Provider: 07/11/19 23:33 Source: patient, RN notes reviewed, Vital Signs reviewed, family - - History of Present Illness Initial Comments: patient noted worsening shortness of breath today. She denies any cough, fever, chills, nausea, vomiting, diarrhea, abdominal pain, headache or dizziness. Patient's shortness of breath is worse with exertion and cough. It is moderate in nature. It improves with rest. She denies any PND or orthopnea. Timing/Duration: 7-24 hours Severity: moderate Activities at Onset: activity Possible Cause: occasional episodes Improving Factors: rest Worsening Factors: movement Respiratory Risk Factors: no cause identified Allergies/Adverse Reactions: Allergies Codeine Allergy (Unknown, Verified 06/30/19 13:30) Home Medications: Ambulatory Orders Esomeprazole Magnesium [Nexium] 40 mg PO DAILY 10/18/18 Venlafaxine HCl 37.5 mg PO DAILY 10/18/18 Docusate Sodium 100 mg PO BID 11/04/18 Ferrous Gluconate [Fergon] 27 mg PO DAILY 11/04/18 Furosemide 40 mg PO DAILY 11/04/18 Gabapentin 600 mg PO BID 11/04/18 [place]-3 Fatty Acids [[place] 3] 1 cap PO DAILY 11/04/18 Risperidone 1 mg PO DAILY 11/04/18 Hyoscyamine Sulfate [Levsin] 0.125 mg PO Q8HRS #15 tab 01/05/19 Propranolol HCl [Inderal] 20 mg PO BID #60 tab 01/13/19 Potassium Chloride [K-Tab] 20 meq PO CURTIS-OTH-DAY 01/16/19 Tramadol HCl 50 mg PO Q4HR PRN #20 tab 01/18/19 Phenazopyridine HCl [Pyridium] 200 mg PO BID PRN #14 tab 01/27/19 predniSONE [Prednisone] 20 mg PO QAM #5 tab 03/15/19 Albuterol Sulfate [Albuterol Sulfate Hfa] 108 mcg IN Q4H #1 aer 07/12/19 predniSONE 60 mg PO DAILY #15 tab 07/12/19 Review of Systems - Review of Systems Constitutional: States: see HPI, malaise. Denies: chills, fever EENTM: States: no symptoms reported Respiratory: States: see HPI, cough, short of breath. Denies: orthopnea, stridor, wheezing Cardiology: States: no symptoms reported, see HPI. Denies: chest pain, edema, palpitations Gastrointestinal/Abdominal: States: no symptoms reported Genitourinary: States: no symptoms reported Musculoskeletal: States: no symptoms reported Skin: States: no symptoms reported Neurological: States: no symptoms reported Endocrine: States: no symptoms reported Hematologic/Lymphatic: States: no symptoms reported All other Systems: Reviewed and Negative Past Medical History (General) - Patient Medical History Hx Seizures: No Hx Stroke: No Hx Dementia: No Hx Asthma: No Hx of COPD: No Hx Cardiac Disorders: No Hx Congestive Heart Failure: No Hx Pacemaker: No Hx Hypertension: No Hx Thyroid Disease: No Hx Diabetes: No Hx Gastroesophageal Reflux: Yes Hx Renal Disease: No Hx Cancer: No Hx of HIV: No Hx Hepatitis C: No Hx MRSA: No Hx Other PMH: Yes - cirrhosis Surgical History: cholecystectomy, Hysterectomy, other - Vaccination History Hx Tetanus, Diphtheria Vaccination: No Hx Influenza Vaccination: No Hx Pneumococcal Vaccination: No - Social History Hx Tobacco Use: No Hx Chewing Tobacco Use: No Hx Alcohol Use: No Hx Substance Use: No Hx Substance Use Treatment: No Hx Depression: No Hx Physical Abuse: No Hx Emotional Abuse: No Hx Suspected Abuse: No - Female History Patient : No - oopherectomy Family Medical History - Family History Mother Family History: Unknown Living Status: Unknown Hx Cardiac Disease: Yes - mom Hx Family;Other: bipolar disorder mom Physical Exam - Physical Exam General Appearance: Alert, Well Developed, Well Hydrated, Well Nourished Eyes, Ears, Nose, Throat Exam: PERRL/EOMI, normal ENT inspection, other - patient with baldness secondary to severe tinea capitis. With multiple caries and missing teeth. Neck: non-tender, full range of motion, supple Respiratory: chest non-tender, respiratory distress - mild, decreased breath sounds - diffusely, rhonchi - diffusely Cardiovascular/Chest: normal peripheral pulses, no edema, no JVD, no murmur, bradycardia Peripheral Pulses: radial,right: 2+, radial,left: 2+ Gastrointestinal/Abdominal: normal bowel sounds, non tender, soft, distended Extremity: normal range of motion, non-tender, normal inspection Neurologic: cork tile floor layer II-XII nml as tested, no motor/sensory deficits, normal mood/affect, oriented x 3, other - patient speaks slowly. She is not confused. Skin Exam: normal color, warm/dry Lymphatic: no adenopathy Progress - Progress Progress: differential diagnosis: COPD exacerbation, CHF exacerbation, pneumonia, viral URI among others. 07/12/19 00:50 Patient is markedly improved after a single DuoNeb. Then on discharge home with a prescription for steroids. We'll also discharge her with a bipin boyce MDI. I discussed plan of care with the patient and her they voice understanding and agreement. Maksim Pressley M.D. - Results/Orders Results/Orders: Laboratory Results - last 24 hr 07/11/19 07/11/19 23:47 23:47 WBC 2.7 L RBC 3.63 L Hgb 12.6 Hct 36.7 MCV 101.0 H MCH 34.6 H MCHC 34.2 RDW 13.1 Plt Count 54 L MPV 12.4 H Absolute Neuts (auto) Not Reportable Absolute Lymphs (auto) Not Reportable Absolute Monos (auto) Not Reportable Absolute Eos (auto) Not Reportable Neutrophils % Not Reportable Neutrophils % (Manual) 58.0 Lymphocytes % Not Reportable Lymphocytes % (Manual) 31.0 Monocytes % Not Reportable Monocytes % (Manual) 6.0 Eosinophils % Not Reportable Basophils % Not Reportable Eosinophils 4.0 Basophils 1.0 Platelet Estimate Decreased Normal RBC Morphology Normal rbc morph Sodium 141 Potassium 3.1 L Chloride 105 Carbon Dioxide 29 Anion Gap 10.1 L BUN 9 Creatinine 0.56 L BUN/Creatinine Ratio 16.1 Random Glucose 118 H Serum Osmolality 281.0 Calcium 8.9 Total Bilirubin 0.5 AST 22 ALT 16 Alkaline Phosphatase 108 Serum Total Protein 6.0 L Albumin 3.3 Globulin 2.7 Albumin/Globulin Ratio 1.2 EXAM: Chest,2 Views HISTORY: Shortness of breath COMPARISON: Chest one view 06/30/2019 TECHNIQUE: Chest two views PA and lateral FINDINGS: Patient is mildly rightward rotated. Heart size and pulmonary vessels within normal limits. Mild symmetric bilateral lower lungs/chest density on PA view most likely represents overlying breast/chest wall attenuation artifact. No lung mass, consolidation, or significant pulmonary edema. No significant pleural effusion or pneumothorax. Bones unremarkable. I MPRESSION: Unremarkable chest radiograph. Electronically signed by: Jason Richardson MD 07/11/2019 11:50 PM Departure - Departure Clinical Impression: Acute bronchospasm, Viral upper respiratory infection Time of Disposition: 01:30 Disposition: Discharge to Home or Self Care Condition: Good Departure Forms: ED Discharge - Pt. Copy, Patient Portal Self Enrollment Instructions: Viral Upper Respiratory Infection, Adult (DC), Asthma, Adult (DC) Referrals: LITA HAMMOND [Primary Care Provider] - 1-5 Days Prescriptions: Albuterol Sulfate [Albuterol Sulfate Hfa] 108 mcg IN Q4H #1 aer predniSONE 60 mg PO DAILY #15 tab Home Medications: Ambulatory Orders Esomeprazole Magnesium [Nexium] 40 mg PO DAILY 10/18/18 Venlafaxine HCl 37.5 mg PO DAILY 10/18/18 Docusate Sodium 100 mg PO BID 11/04/18 Ferrous Gluconate [Fergon] 27 mg PO DAILY 11/04/18 Furosemide 40 mg PO DAILY 11/04/18 Gabapentin 600 mg PO BID 11/04/18 [place]-3 Fatty Acids [[place] 3] 1 cap PO DAILY 11/04/18 Risperidone 1 mg PO DAILY 11/04/18 Hyoscyamine Sulfate [Levsin] 0.125 mg PO Q8HRS #15 tab 01/05/19 Propranolol HCl [Inderal] 20 mg PO BID #60 tab 01/13/19 Potassium Chloride [K-Tab] 20 meq PO CURTIS-OTH-DAY 01/16/19 Tramadol HCl 50 mg PO Q4HR PRN #20 tab 01/18/19 Phenazopyridine HCl [Pyridium] 200 mg PO BID PRN #14 tab 01/27/19 predniSONE [Prednisone] 20 mg PO QAM #5 tab 03/15/19 Albuterol Sulfate [Albuterol Sulfate Hfa] 108 mcg IN Q4H #1 aer 07/12/19 predniSONE 60 mg PO DAILY #15 tab 07/12/19
[2019-07-12 01:38] VITALS: BP 106/51; O2SAT 98
== END 2019-07-12 01:45 | disposition home or self-care (01) ==
LOC: ER 22:17
DX: J06.9 Acute upper respiratory infection, unspecified (principal); J98.01 Acute bronchospasm; K21.9 Gastro-esophageal reflux disease without esophagitis; Z79.899 Other long term (current) drug therapy; Z88.5 Allergy status to narcotic agent
CPT/HCPCS: 36415; 71046; 80053; 85025; 94640; J7620

== ENCOUNTER 2019-07-22 00:20 | Emergency (ER) | payer OTHER ==
[2019-07-22 00:49] VITALS: TEMP 96.7
--- NOTE | 2019-07-22 00:53 | ED.PDOC ---
History of Present Illness - General Chief Complaint: Respiratory Problem Stated Complaint: "feeling short of breath" Time Seen by Provider: 07/22/19 00:30 Source: patient Exam Limitations: no limitations Additional Information: 54yo F reports shortness of breath because she "was born short-winded." Denies acute onset of SOB, chest pain, fever, cough, syncope, recent surgery/trauma, history of blood clot/bleeding disorder. No other complaints at this time. Reports that neb resolved her symptoms last time and would like to try that again. No other complaints at this time. - History of Present Illness Allergies/Adverse Reactions: Allergies Codeine Allergy (Unknown, Verified 06/30/19 13:30) Home Medications: Ambulatory Orders Esomeprazole Magnesium [Nexium] 40 mg PO DAILY 10/18/18 Venlafaxine HCl 37.5 mg PO DAILY 10/18/18 Docusate Sodium 100 mg PO BID 11/04/18 Ferrous Gluconate [Fergon] 27 mg PO DAILY 11/04/18 Furosemide 40 mg PO DAILY 11/04/18 Gabapentin 600 mg PO BID 11/04/18 [place]-3 Fatty Acids [[place] 3] 1 cap PO DAILY 11/04/18 Risperidone 1 mg PO DAILY 11/04/18 Hyoscyamine Sulfate [Levsin] 0.125 mg PO Q8HRS #15 tab 01/05/19 Propranolol HCl [Inderal] 20 mg PO BID #60 tab 01/13/19 Potassium Chloride [K-Tab] 20 meq PO CURTIS-OTH-DAY 01/16/19 Tramadol HCl 50 mg PO Q4HR PRN #20 tab 01/18/19 Phenazopyridine HCl [Pyridium] 200 mg PO BID PRN #14 tab 01/27/19 predniSONE [Prednisone] 20 mg PO QAM #5 tab 03/15/19 Albuterol Sulfate [Albuterol Sulfate Hfa] 108 mcg IN Q4H #1 aer 07/12/19 predniSONE 60 mg PO DAILY #15 tab 07/12/19 Albuterol Inhaler [Ventolin Hfa Inhaler] 2 puff INH Q4H PRN 14 Days #1 inh 07/22/19 Review of Systems - Review of Systems Respiratory: States: short of breath All other Systems: Reviewed and Negative Past Medical History (General) - Patient Medical History Hx Seizures: No Hx Stroke: No Hx Dementia: No Hx Asthma: No Hx of COPD: No Hx Cardiac Disorders: No Hx Congestive Heart Failure: No Hx Pacemaker: No Hx Hypertension: No Hx Thyroid Disease: No Hx Diabetes: No Hx Gastroesophageal Reflux: Yes Hx Renal Disease: No Hx Cancer: No Hx of HIV: No Hx Hepatitis C: No Hx MRSA: No Surgical History: cholecystectomy, Hysterectomy - Vaccination History Hx Tetanus, Diphtheria Vaccination: No Hx Influenza Vaccination: No Hx Pneumococcal Vaccination: No - Social History Hx Tobacco Use: No Hx Chewing Tobacco Use: No Hx Alcohol Use: No Hx Substance Use: No Hx Substance Use Treatment: No Hx Depression: No Hx Physical Abuse: No Hx Emotional Abuse: No Hx Suspected Abuse: No - Female History Patient : No - oopherectomy Family Medical History - Family History Mother Family History: Unknown Living Status: Unknown Hx Cardiac Disease: Yes - mom Hx Family;Other: bipolar disorder mom Physical Exam - Physical Exam General Appearance: Comfortable, No apparent distress, Well Nourished ENT Exam: normal ENT inspection, hearing grossly normal, pharynx normal Neck: non-tender, full range of motion, supple Respiratory: chest non-tender, lungs clear, normal breath sounds, no respiratory distress, no accessory muscle use Cardiovascular/Chest: normal peripheral pulses, regular rate, rhythm, no edema Gastrointestinal/Abdominal: normal bowel sounds, non tender Extremity: non-tender, normal inspection, no pedal edema Neurologic: fisher terrapin II-XII nml as tested, alert Skin Exam: normal color, warm/dry Lymphatic: no adenopathy Progress - Progress Progress: 07/22/19 00:53 Presents for reported shortness of breath. Well-appearing, no distress, no hypoxia or increased work of breathing. Lung sounds appear clear. No reported chest pain. Wells low risk, and low suspicion for ACS, PE, pneumonia, significant pericardial effusion, volume overload, metabolic acidosis, pneumothorax, or blood loss anemia. Reviewed prior visits, appears for similar complaints. ECG wtihout acute ischemic changes noted. CXR negative for acute findings per my read. Patient reported feeling improved. Asymptomatic. Requested inhaler outpatient. ED warnings given, f/u PCP. Sunny Monteiro MD #[id number] 07/22/19 02:11 - EKG/XRAY/CT EKG: Andrea Comments: 0049 sinus bradycadia rate 54, normal axis, normal intervals, no STEMI Departure - Departure Clinical Impression: Shortness of breath Time of Disposition: 02:10 Disposition: Discharge to Home or Self Care Condition: Fair Departure Forms: ED Discharge - Pt. Copy, Patient Portal Self Enrollment Instructions: DI for Asthma -- Adult Diet: resume usual diet Activity: walking as tolerated Referrals: LITA HAMMOND [Primary Care Provider] - 1-2 Weeks Prescriptions: Albuterol Inhaler [Ventolin Hfa Inhaler] 2 puff INH Q4H PRN 14 Days #1 inh PRN Reason: wheezing, shortness of breath Home Medications: Ambulatory Orders Esomeprazole Magnesium [Nexium] 40 mg PO DAILY 10/18/18 Venlafaxine HCl 37.5 mg PO DAILY 10/18/18 Docusate Sodium 100 mg PO BID 11/04/18 Ferrous Gluconate [Fergon] 27 mg PO DAILY 11/04/18 Furosemide 40 mg PO DAILY 11/04/18 Gabapentin 600 mg PO BID 11/04/18 [place]-3 Fatty Acids [[place] 3] 1 cap PO DAILY 11/04/18 Risperidone 1 mg PO DAILY 11/04/18 Hyoscyamine Sulfate [Levsin] 0.125 mg PO Q8HRS #15 tab 01/05/19 Propranolol HCl [Inderal] 20 mg PO BID #60 tab 01/13/19 Potassium Chloride [K-Tab] 20 meq PO CURTIS-OTH-DAY 01/16/19 Tramadol HCl 50 mg PO Q4HR PRN #20 tab 01/18/19 Phenazopyridine HCl [Pyridium] 200 mg PO BID PRN #14 tab 01/27/19 predniSONE [Prednisone] 20 mg PO QAM #5 tab 03/15/19 Albuterol Sulfate [Albuterol Sulfate Hfa] 108 mcg IN Q4H #1 aer 07/12/19 predniSONE 60 mg PO DAILY #15 tab 07/12/19 Albuterol Inhaler [Ventolin Hfa Inhaler] 2 puff INH Q4H PRN 14 Days #1 inh 07/22/19
[2019-07-22] MEDS ORDERED: IPRATROPIUM/ALBUTEROL 3 ML VIAL NEB ONE (00:56)
--- NOTE | 2019-07-22 02:19 | RAD ---
EXAM: AP CHEST RADIOGRAPH CLINICAL INDICATION: Shortness of breath. COMPARISON: Compared to the chest radiograph July 11, 2019. FINDINGS: Cardiac size is at the upper limits of normal. Unchanged right basilar scar. Lungs are otherwise clear. No pleural effusions. No pneumothorax, pneumomediastinum or free peritoneal gas. No hilar or mediastinal lymphadenopathy. No mediastinal widening. Bones are intact on this single view. IMPRESSION: No acute cardiopulmonary disease. Electronically signed by: Paul Romero MD 07/22/2019 2:17 AM [facility]
[2019-07-22 02:24] VITALS: BP 137/55; O2SAT 99
== END 2019-07-22 02:24 | disposition home or self-care (01) ==
LOC: ER 00:20
DX: R06.02 Shortness of breath (principal); R00.1 Bradycardia, unspecified; K21.9 Gastro-esophageal reflux disease without esophagitis; Z79.899 Other long term (current) drug therapy; Z88.5 Allergy status to narcotic agent
CPT/HCPCS: 71045; 80053; 84484; 85025; 93005; 94640; J7620

== ENCOUNTER 2020-01-04 18:48 | Emergency (ER) | payer OTHER ==
--- NOTE | 2020-01-04 19:09 | ED.PDOC ---
History of Present Illness - General Chief Complaint: Back Pain or Injury Stated Complaint: I fell two weeks ago and hurt my shoulder Time Seen by Provider: 01/04/20 18:51 Source: patient, RN notes reviewed, Vital Signs reviewed - History of Present Illness Initial Comments: 54-year-old female with history of bipolar disorder presenting to the emergency department for right hip, left upper arm pain onset 2 weeks ago after a mechanical fall. Patient states she tripped over her nephew landed on her left side. She is been able to walk on the hip since the fall occurred. In fact, she walked from her house to the emergency room tonight. She denies any preceding chest pain or shortness of breath. She does report that she has some mild chest pain now. No fever. No cough. Allergies/Adverse Reactions: Allergies Codeine Allergy (Unknown, Verified 09/29/19 16:30) Home Medications: Ambulatory Orders Esomeprazole Magnesium [Nexium] 40 mg PO DAILY 10/18/18 Venlafaxine HCl 37.5 mg PO DAILY 10/18/18 Docusate Sodium 100 mg PO BID 11/04/18 Ferrous Gluconate [Fergon] 27 mg PO DAILY 11/04/18 Furosemide 40 mg PO DAILY 11/04/18 Gabapentin 600 mg PO BID 11/04/18 [place]-3 Fatty Acids [[place] 3] 1 cap PO DAILY 11/04/18 Risperidone 1 mg PO DAILY 11/04/18 Hyoscyamine Sulfate [Levsin] 0.125 mg PO Q8HRS #15 tab 01/05/19 Propranolol HCl [Inderal] 20 mg PO BID #60 tab 01/13/19 Potassium Chloride [K-Tab] 20 meq PO CURTIS-OTH-DAY 01/16/19 Tramadol HCl 50 mg PO Q4HR PRN #20 tab 01/18/19 Phenazopyridine HCl [Pyridium] 200 mg PO BID PRN #14 tab 01/27/19 predniSONE [Prednisone] 20 mg PO QAM #5 tab 03/15/19 Albuterol Sulfate [Albuterol Sulfate Hfa] 108 mcg IN Q4H #1 aer 07/12/19 predniSONE 60 mg PO DAILY #15 tab 07/12/19 Albuterol Inhaler [Ventolin Hfa Inhaler] 2 puff INH Q4H PRN 14 Days #1 inh 07/22/19 Polyethylene Glycol 3350 [Miralax] 17 gm PO BID PRN 20 Days #20 pckt 09/29/19 Ibuprofen [Motrin] 400 mg PO Q6H PRN #20 tab 01/04/20 Methocarbamol [Robaxin] 750 mg PO Q6H PRN #20 tab 01/04/20 Review of Systems - Review of Systems EENTM: Denies: blurred vision, ear discharge, nose pain, throat pain Respiratory: Denies: orthopnea, short of breath Cardiology: States: chest pain. Denies: edema, palpitations Gastrointestinal/Abdominal: Denies: constipation, diarrhea, nausea, vomiting Genitourinary: Denies: dysuria, frequency Musculoskeletal: States: back pain, joint pain. Denies: joint swelling, muscle pain, neck pain Skin: Denies: dryness, lumps Neurological: Denies: headache, numbness, paresthesia Endocrine: States: no symptoms reported Hematologic/Lymphatic: States: no symptoms reported Past Medical History (General) - Patient Medical History Hx Seizures: No Hx Stroke: No Hx Dementia: No Hx Asthma: No Hx of COPD: No Hx Cardiac Disorders: No Hx Congestive Heart Failure: No Hx Pacemaker: No Hx Hypertension: No Hx Thyroid Disease: No Hx Diabetes: No Hx Gastroesophageal Reflux: Yes Hx Renal Disease: No Hx Cancer: No Hx of HIV: No Hx Hepatitis C: No Hx MRSA: No - Vaccination History Hx Tetanus, Diphtheria Vaccination: No Hx Influenza Vaccination: No Hx Pneumococcal Vaccination: No - Social History Hx Tobacco Use: No Hx Chewing Tobacco Use: No Hx Alcohol Use: No Hx Substance Use: No Hx Substance Use Treatment: No Hx Depression: No Hx Physical Abuse: No Hx Emotional Abuse: No Hx Suspected Abuse: No - Female History Patient : No - oopherectomy Family Medical History - Family History Mother Family History: Unknown Living Status: Unknown Hx Cardiac Disease: Yes - mom Hx Family;Other: bipolar disorder mom Physical Exam - Physical Exam General Appearance: Alert, Comfortable Head Injury: no evidence of injury, active bleeding ENT Exam: hearing grossly normal, no evidence of ENT injury Neck Exam: non-tender, full range of motion, normal alignment, normal inspection Cardiovascular/Respiratory: regular rate, rhythm, no M/R/G, normal peripheral pulses, no JVD Gastrointestinal/Abdominal: normal bowel sounds, non tender Back Exam: normal inspection, no vertebral tenderness, other - No step-offs or deformities Extremity Exam: pelvis stable, other - Tenderness over the left proximal humerus without deformities, ecchymosis, or crepitus. Shoulder joint itself is nontender, clavicle nontender, elbow nontender.She also has mild tenderness with palpation of the right greater trochanter, but no pain with internal and external rotation, no shortening. She has full range of motion of the hip without significant pain. She is ambulatory with a normal gait Neurologic: no motor/sensory deficits, alert, normal mood/affect, oriented x 3 Skin Exam: normal color, rash - Chronic appearing dermatitis to the left upper extremity. There is an old healed skin graft to the right forearm. - [place] Coma Score Best Eye Response ([place]): (4) open spontaneously Best Verbal Response ([place]): (5) oriented Best Motor Response ([place]): (6) obeys commands Progress - Progress Progress: 01/04/20 19:36 54-year-old female presenting with left upper arm and right hip pain for 2 weeks after a ground-level fall. She is able to walk on the hip without any difficulty. She walked to the emergency room tonight. In fact, she walked outside to smoke a cigarette after she registered and refused to be triaged until she smoked a cigarette. X-ray is negative. She is got full range of motion of the hip without crepitus. Exceedingly low suspicion for fracture given 2 weeks of ambulatory status. Her C/T/L-spine are nontender without step- offs or deformities. Very low suspicion for fracture. She did report some mild chest pain, her EKG shows no acute ischemic changes. No indication for cardiac work-up at this time. X-ray of her humerus is negative, no fracture dislocation. Suspect soft tissue injury. Will treat with NSAIDs and Robaxin. Strict warnings given to return the emergency room for worsening pain, shortness of breath, numbness/tingling, or other concerns. DDX: Fx, contusion, dislocation - Results/Orders Results/Orders: EKG reviewed personally by me at 1918. Sinus bradycardia, rate of 56, occasional PACs, normal axis, borderline QTC at 480, no ST segment elevations or depressions Left humerus x-ray reviewed personally by me at 1925. No fracture, no dislocation Departure - Departure Clinical Impression: Contusion, arm, upper Qualifiers: Encounter type: initial encounter Laterality: left Qualified Code(s): S40.022A - Contusion of left upper arm, initial encounter Contusion of hip, right Qualifiers: Encounter type: initial encounter Qualified Code(s): S70.01XA - Contusion of right hip, initial encounter Fall from slip, trip, or stumble Qualifiers: Encounter type: initial encounter Qualified Code(s): W01.0XXA - Fall on same level from slipping, tripping and stumbling without subsequent striking against object, initial encounter Time of Disposition: 19:31 Disposition: Discharge to Home or Self Care Condition: Good Departure Forms: ED Discharge - Pt. Copy, Patient Portal Self Enrollment Instructions: DI for Low Back Pain Diet: resume usual diet Activity: as per physical therapy, increase activity as tolerated Referrals: LITA HAMMOND [Primary Care Provider] - 1-5 Days Prescriptions: Ibuprofen [Motrin] 400 mg PO Q6H PRN #20 tab PRN Reason: Pain Methocarbamol [Robaxin] 750 mg PO Q6H PRN #20 tab PRN Reason: Muscle Spasms Home Medications: Ambulatory Orders Esomeprazole Magnesium [Nexium] 40 mg PO DAILY 10/18/18 Venlafaxine HCl 37.5 mg PO DAILY 10/18/18 Docusate Sodium 100 mg PO BID 11/04/18 Ferrous Gluconate [Fergon] 27 mg PO DAILY 11/04/18 Furosemide 40 mg PO DAILY 11/04/18 Gabapentin 600 mg PO BID 11/04/18 [place]-3 Fatty Acids [[place] 3] 1 cap PO DAILY 11/04/18 Risperidone 1 mg PO DAILY 11/04/18 Hyoscyamine Sulfate [Levsin] 0.125 mg PO Q8HRS #15 tab 01/05/19 Propranolol HCl [Inderal] 20 mg PO BID #60 tab 01/13/19 Potassium Chloride [K-Tab] 20 meq PO CURTIS-OTH-DAY 01/16/19 Tramadol HCl 50 mg PO Q4HR PRN #20 tab 01/18/19 Phenazopyridine HCl [Pyridium] 200 mg PO BID PRN #14 tab 01/27/19 predniSONE [Prednisone] 20 mg PO QAM #5 tab 03/15/19 Albuterol Sulfate [Albuterol Sulfate Hfa] 108 mcg IN Q4H #1 aer 07/12/19 predniSONE 60 mg PO DAILY #15 tab 07/12/19 Albuterol Inhaler [Ventolin Hfa Inhaler] 2 puff INH Q4H PRN 14 Days #1 inh 07/22/19 Polyethylene Glycol 3350 [Miralax] 17 gm PO BID PRN 20 Days #20 pckt 09/29/19 Ibuprofen [Motrin] 400 mg PO Q6H PRN #20 tab 01/04/20 Methocarbamol [Robaxin] 750 mg PO Q6H PRN #20 tab 01/04/20
[2020-01-04 19:11] VITALS: BP 117/51; TEMP 98.8
[2020-01-04 19:40] VITALS: O2SAT 97
--- NOTE | 2020-01-04 19:49 | RAD ---
EXAM: XR Left Humerus, 2 Views CLINICAL HISTORY: 54 years old Female; fall, pain. TECHNIQUE: Frontal and lateral views of the left humerus. COMPARISON: No relevant prior studies available. FINDINGS: BONES/JOINTS: No acute fracture seen. Normal bony alignment. SOFT TISSUES: No acute soft tissue abnormality identified. No radiopaque foreign body seen. OTHER FINDINGS: Visualized left lung clear. IMPRESSION: - No acute fracture seen. Thank you for allowing us to participate in the care of this patient. Electronically signed by: Oscar Burns MD 01/04/2020 7:48 PM CDT
== END 2020-01-04 19:40 | disposition home or self-care (01) ==
LOC: ER 18:48

== ENCOUNTER 2020-01-06 07:14 | Emergency (ER) | payer OTHER ==
[2020-01-06 07:41] VITALS: O2SAT 100
--- NOTE | 2020-01-06 07:44 | ED.PDOC ---
History of Present Illness - General Chief Complaint: Upper Extremity Injury Stated Complaint: L shoulder pain x 1 week Time Seen by Provider: 01/06/20 07:33 Source: patient, RN notes reviewed, Vital Signs reviewed Exam Limitations: no limitations Additional Information: 54yo F self-reported history of anxiety and Bipolar presents today for left arm and back pain s/p fall. Reports pain is dull, non-radiating, present for the past week. Reports prior mechanical fall while walking 1 week ago, seen previously for same with little relief. Denies shortness of breath, bleeding, head injury, vomiting, diarrhea, fever, cough, or other symptoms at this time. - History of Present Illness Allergies/Adverse Reactions: Allergies Codeine Allergy (Unknown, Verified 01/06/20 07:41) Home Medications: Ambulatory Orders Esomeprazole Magnesium [Nexium] 40 mg PO DAILY 10/18/18 Venlafaxine HCl 37.5 mg PO DAILY 10/18/18 Docusate Sodium 100 mg PO BID 11/04/18 Ferrous Gluconate [Fergon] 27 mg PO DAILY 11/04/18 Furosemide 40 mg PO DAILY 11/04/18 Gabapentin 600 mg PO BID 11/04/18 Rubicon-3 Fatty Acids [Rubicon 3] 1 cap PO DAILY 11/04/18 Risperidone 1 mg PO DAILY 11/04/18 Hyoscyamine Sulfate [Levsin] 0.125 mg PO Q8HRS #15 tab 01/05/19 Propranolol HCl [Inderal] 20 mg PO BID #60 tab 01/13/19 Potassium Chloride [K-Tab] 20 meq PO CURTIS-OTH-DAY 01/16/19 Tramadol HCl 50 mg PO Q4HR PRN #20 tab 01/18/19 Phenazopyridine HCl [Pyridium] 200 mg PO BID PRN #14 tab 01/27/19 predniSONE [Prednisone] 20 mg PO QAM #5 tab 03/15/19 Albuterol Sulfate [Albuterol Sulfate Hfa] 108 mcg IN Q4H #1 aer 07/12/19 predniSONE 60 mg PO DAILY #15 tab 07/12/19 Albuterol Inhaler [Ventolin Hfa Inhaler] 2 puff INH Q4H PRN 14 Days #1 inh 07/22/19 Polyethylene Glycol 3350 [Miralax] 17 gm PO BID PRN 20 Days #20 pckt 09/29/19 Ibuprofen [Motrin] 400 mg PO Q6H PRN #20 tab 01/04/20 Methocarbamol [Robaxin] 750 mg PO Q6H PRN #20 tab 01/04/20 Potassium Chloride Microencaps [Potassium Chloride Cr] 10 meq PO DAILY #4 tab 01/06/20 Review of Systems - Review of Systems Musculoskeletal: States: back pain, joint pain, muscle pain Skin: States: other - skin grafting from right thigh to right arm All other Systems: Reviewed and Negative Past Medical History (General) - Patient Medical History Hx Seizures: No Hx Stroke: No Hx Dementia: No Hx Asthma: No Hx of COPD: No Hx Cardiac Disorders: No Hx Congestive Heart Failure: No Hx Pacemaker: No Hx Hypertension: No Hx Thyroid Disease: No Hx Diabetes: No Hx Gastroesophageal Reflux: Yes Hx Renal Disease: No Hx Cancer: No Hx of HIV: No Hx Hepatitis C: No Hx MRSA: No - Vaccination History Hx Tetanus, Diphtheria Vaccination: No Hx Influenza Vaccination: Yes Hx Pneumococcal Vaccination: No - Social History Hx Tobacco Use: Yes Hx Chewing Tobacco Use: No Hx Alcohol Use: No Hx Substance Use: No Hx Substance Use Treatment: No Hx Depression: Yes - Bipolar Hx Physical Abuse: No Hx Emotional Abuse: No Hx Suspected Abuse: No - Female History Patient is a Female of Child Bearing Age (10 -59 yrs old): Yes Patient : No - Menopause Family Medical History - Family History Mother Family History: Unknown Living Status: Unknown Hx Cardiac Disease: Yes - mom Hx Family;Other: bipolar disorder mom Physical Exam - Physical Exam General Appearance: Alert, Well Developed, Well Nourished Eyes, Ears, Nose, Throat Exam: PERRL/EOMI, pharynx normal Neck: non-tender, full range of motion, supple Cardiovascular/Respiratory: regular rate, rhythm, no M/R/G, normal peripheral pulses Back Exam: normal inspection, no CVA tenderness, no vertebral tenderness Shoulder Exam: normal inspection, non-tender, no evidence of injury, normal ROM Elbow/Forearm Exam: normal inspection - except for graft recipient site anterior right forearm with chronic deformity, non-tender, no evidence of injury, normal ROM Wrist Exam: normal inspection, non-tender, no evidence of injury, normal ROM Hand Exam: normal inspection, non-tender, no evidence of injury, normal ROM 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 Skin Exam: normal color, warm/dry Comments: LUE: 2+ radial/ulnar pulses, intact light touch sensation, 2sec cap refill, FROM all joints Progress - Progress Progress: 01/06/20 08:53 Well-appearing, afebrile, neurovascularly intact. Does not appear septic joint or deformity to indicate fracture. Possible crystal arthropathy, OA, or RA. Ambulatory. Considered possible anginal equivalency as well, though low suspicion for ACS, PE, CHF, mass, or aortic pathology. Trop negative after reported 1 week of symptoms, ECG without noted acute ischemic changes. Noted low potassium, and repletion started in ED. Patient reports she is not currently on potassium supplementation, so additional written for outpatient. Discussed need for follow-up in 2-3 days for potassium level recheck, and patient voiced understanding and agreement. ED warnings given, f/u primary care. - EKG/XRAY/CT EKG: Brennan, Sinus Comments: 0730 sinus brennan rate 51, normal axis, normal intervals, no STEMI Departure - Departure Clinical Impression: Shoulder pain, left, Back pain Time of Disposition: 08:49 Disposition: Discharge to Home or Self Care Condition: Good Departure Forms: ED Discharge - Pt. Copy, Patient Portal Self Enrollment Instructions: DI for Arm Pain, Upper Back Pain Activity: increase activity as tolerated Referrals: LITA HAMMOND [Primary Care Provider] - 1-2 Weeks Prescriptions: Potassium Chloride Microencaps [Potassium Chloride Cr] 10 meq PO DAILY #4 tab Home Medications: Ambulatory Orders Esomeprazole Magnesium [Nexium] 40 mg PO DAILY 10/18/18 Venlafaxine HCl 37.5 mg PO DAILY 10/18/18 Docusate Sodium 100 mg PO BID 11/04/18 Ferrous Gluconate [Fergon] 27 mg PO DAILY 11/04/18 Furosemide 40 mg PO DAILY 11/04/18 Gabapentin 600 mg PO BID 11/04/18 Rubicon-3 Fatty Acids [Rubicon 3] 1 cap PO DAILY 11/04/18 Risperidone 1 mg PO DAILY 11/04/18 Hyoscyamine Sulfate [Levsin] 0.125 mg PO Q8HRS #15 tab 01/05/19 Propranolol HCl [Inderal] 20 mg PO BID #60 tab 01/13/19 Potassium Chloride [K-Tab] 20 meq PO CURTIS-OTH-DAY 01/16/19 Tramadol HCl 50 mg PO Q4HR PRN #20 tab 01/18/19 Phenazopyridine HCl [Pyridium] 200 mg PO BID PRN #14 tab 01/27/19 predniSONE [Prednisone] 20 mg PO QAM #5 tab 03/15/19 Albuterol Sulfate [Albuterol Sulfate Hfa] 108 mcg IN Q4H #1 aer 07/12/19 predniSONE 60 mg PO DAILY #15 tab 07/12/19 Albuterol Inhaler [Ventolin Hfa Inhaler] 2 puff INH Q4H PRN 14 Days #1 inh 07/22/19 Polyethylene Glycol 3350 [Miralax] 17 gm PO BID PRN 20 Days #20 pckt 09/29/19 Ibuprofen [Motrin] 400 mg PO Q6H PRN #20 tab 01/04/20 Methocarbamol [Robaxin] 750 mg PO Q6H PRN #20 tab 01/04/20 Potassium Chloride Microencaps [Potassium Chloride Cr] 10 meq PO DAILY #4 tab 01/06/20 Additional Instructions: You were seen in the [facility] Emergency Department today. Please fill and take the medications as prescribed (if any) and if you were prescribed antibiotics, please complete the full course. You will need further evaluation on an out patient basis. You must follow up with the listed locations and within the time frames indicated in your discharge paperwork (including your PCP in 3-5 days). Failure to follow up with any studies or doctor visits within the timeframe mentioned could result in poor outcome. Your examination today in the ED did not reveal a new or old problem that required immediate surgery or admission to the hospital. However, you should return to the ED if you are not improving as instructed (especially within the first 6 to 24 hours). This may include things such as uncontrolled vomiting, shortness of breath, fever, bleeding, or severe pain in a body part. You should return for any new or worsening emergency symptoms such as chest pain, severe headache, confusion, or severe abdominal pain. Finally, return to the emergency department if you have any concerns not mentioned above that are concerning to you or if you are unable to follow up as instructed above. Thank you for coming to [facility]. It was our pleasure to serve you today and we thank you for your visit.
[2020-01-06] MEDS ORDERED: POTASSIUM CHLORIDE 20 MEQ TAB PO ONE (08:29)
[2020-01-06] MEDS ORDERED: ONDANSETRON 4 MG TAB PO ONE (08:30)
--- NOTE | 2020-01-06 08:43 | RAD ---
EXAM: XR Chest, 2 Views CLINICAL HISTORY: pain s/p fall TECHNIQUE: Frontal and lateral views of the chest. COMPARISON: 07/22/2019. FINDINGS: Lungs: Unremarkable. No consolidation. Pleural space: Unremarkable. No pneumothorax. Heart: Unremarkable. No cardiomegaly. Mediastinum: Unremarkable. Bones/joints: Unremarkable. IMPRESSION: No abnormality noted. Electronically signed by: Steph Guillermo MD 01/06/2020 8:41 AM CDT
--- NOTE | 2020-01-06 08:45 | RAD ---
EXAM: XR Left Humerus, 2 or More Views CLINICAL HISTORY: pain s/p fall TECHNIQUE: Frontal and lateral views of the left humerus. COMPARISON: No relevant prior studies available. FINDINGS: Bones/joints: Unremarkable. No acute fracture. No dislocation. Soft tissues: Unremarkable. IMPRESSION: No fracture noted. Electronically signed by: Steph Guillermo MD 01/06/2020 8:41 AM CDT
--- NOTE | 2020-01-06 08:46 | RAD ---
EXAM: XR Left Shoulder Complete, 2 or More Views CLINICAL HISTORY: pain s/p fall TECHNIQUE: Two or more views of the left shoulder. COMPARISON: No relevant prior studies available. FINDINGS: Bones/joints: Unremarkable. No acute fracture. No dislocation. Soft tissues: Unremarkable. IMPRESSION: No abnormality noted. Electronically signed by: Steph Guillermo MD 01/06/2020 8:42 AM CDT
[2020-01-06 09:11] VITALS: BP 153/66; TEMP 97.8
== END 2020-01-06 09:12 | disposition home or self-care (01) ==
LOC: ER 07:14
DX: M25.512 Pain in left shoulder (principal); R00.1 Bradycardia, unspecified; M54.9 Dorsalgia, unspecified; K21.9 Gastro-esophageal reflux disease without esophagitis; F17.200 Nicotine dependence, unspecified, uncomplicated; Z79.899 Other long term (current) drug therapy

== ENCOUNTER 2020-01-08 16:25 | Emergency (ER) | payer OTHER ==
--- NOTE | 2020-01-08 17:07 | ED.PDOC ---
History of Present Illness - General Chief Complaint: General Stated Complaint: weakness,nausea Time Seen by Provider: 01/08/20 17:04 Source: patient, RN notes reviewed, Vital Signs reviewed, family - Exam Limitations: no limitations - History of Present Illness Initial Comments: Patient is a 54-year-old white female who presents with complaints of body aches, weakness and missing her mother. Patient is tearful. The body aches are constant. They wax and wane. There is no radiation. Nothing makes them better. They are worse with movement. Timing/Duration: 24 hours Severity: moderate Improving Factors: nothing Worsening Factors: movement Associated Symptoms: malaise, weakness Allergies/Adverse Reactions: Allergies Codeine Allergy (Unknown, Verified 01/06/20 07:41) Home Medications: Ambulatory Orders Esomeprazole Magnesium [Nexium] 40 mg PO DAILY 10/18/18 Venlafaxine HCl 37.5 mg PO DAILY 10/18/18 Docusate Sodium 100 mg PO BID 11/04/18 Ferrous Gluconate [Fergon] 27 mg PO DAILY 11/04/18 Furosemide 40 mg PO DAILY 11/04/18 Gabapentin 600 mg PO BID 11/04/18 Armour-3 Fatty Acids [Armour 3] 1 cap PO DAILY 11/04/18 Risperidone 1 mg PO DAILY 11/04/18 Hyoscyamine Sulfate [Levsin] 0.125 mg PO Q8HRS #15 tab 01/05/19 Propranolol HCl [Inderal] 20 mg PO BID #60 tab 01/13/19 Potassium Chloride [K-Tab] 20 meq PO CURTIS-OTH-DAY 01/16/19 Tramadol HCl 50 mg PO Q4HR PRN #20 tab 01/18/19 Phenazopyridine HCl [Pyridium] 200 mg PO BID PRN #14 tab 01/27/19 predniSONE [Prednisone] 20 mg PO QAM #5 tab 03/15/19 Albuterol Sulfate [Albuterol Sulfate Hfa] 108 mcg IN Q4H #1 aer 07/12/19 predniSONE 60 mg PO DAILY #15 tab 07/12/19 Albuterol Inhaler [Ventolin Hfa Inhaler] 2 puff INH Q4H PRN 14 Days #1 inh 07/22/19 Polyethylene Glycol 3350 [Miralax] 17 gm PO BID PRN 20 Days #20 pckt 03/07/20 Ibuprofen [Motrin] 400 mg PO Q6H PRN #20 tab 01/04/20 Methocarbamol [Robaxin] 750 mg PO Q6H PRN #20 tab 01/04/20 Potassium Chloride Microencaps [Potassium Chloride Cr] 10 meq PO DAILY #4 tab 01/06/20 Ondansetron [Ondansetron Odt] 4 mg PO Q6H #20 tab 01/08/20 Review of Systems - Review of Systems Constitutional: States: see HPI, malaise, weakness. Denies: chills, fever EENTM: States: no symptoms reported. Denies: eye pain, double vision, throat pain, throat swelling Respiratory: States: no symptoms reported. Denies: cough, short of breath, stridor Cardiology: States: no symptoms reported. Denies: chest pain, palpitations, syncope Gastrointestinal/Abdominal: States: no symptoms reported. Denies: abdominal pain, diarrhea, nausea Genitourinary: States: no symptoms reported Musculoskeletal: States: see HPI, back pain, joint pain Skin: States: no symptoms reported. Denies: change in color, rash Neurological: States: see HPI, weakness. Denies: numbness, paresthesia Endocrine: States: no symptoms reported Hematologic/Lymphatic: States: no symptoms reported All other Systems: No Change from Baseline Past Medical History (General) - Patient Medical History Hx Seizures: No Hx Stroke: No Hx Dementia: No Hx Asthma: No Hx of COPD: No Hx Cardiac Disorders: No Hx Congestive Heart Failure: No Hx Pacemaker: No Hx Hypertension: No Hx Thyroid Disease: No Hx Diabetes: No Hx Gastroesophageal Reflux: Yes Hx Renal Disease: No Hx Cancer: No Hx of HIV: No Hx Hepatitis C: No Hx MRSA: No - Vaccination History Hx Tetanus, Diphtheria Vaccination: No Hx Influenza Vaccination: Yes Hx Pneumococcal Vaccination: No - Social History Hx Tobacco Use: Yes Hx Chewing Tobacco Use: No Hx Alcohol Use: No Hx Substance Use: No Hx Substance Use Treatment: No Hx Depression: Yes - Bipolar Hx Physical Abuse: No Hx Emotional Abuse: No Hx Suspected Abuse: No - Female History Patient : No - Menopause Family Medical History - Family History Mother Family History: Unknown Living Status: Unknown Hx Cardiac Disease: Yes - mom Hx Family;Other: bipolar disorder mom Physical Exam - Physical Exam General Appearance: Alert, Anxious, Obvious distress, Obese, Unkempt, Well Developed, Well Hydrated, Well Nourished Eye Exam: bilateral normal Ears, Nose, Throat: hearing grossly normal, normal ENT inspection, normal pha rynx Neck: non-tender, full range of motion, supple, normal inspection Respiratory: chest non-tender, lungs clear, normal breath sounds, no respiratory distress, no accessory muscle use Cardiovascular/Chest: normal peripheral pulses, regular rate, rhythm, no edema, no gallop, no JVD, no murmur Peripheral Pulses: radial,right: 2+ Gastrointestinal/Abdominal: normal bowel sounds, non tender, soft, no organomegaly, no pulsatile mass Back Exam: normal inspection, no CVA tenderness, no vertebral tenderness Extremity: normal range of motion, non-tender, normal inspection, no pedal edema, other - Patient wearing a sling on the left upper extremity due to "pain". 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 She has pressured speech. Skin Exam: normal color, warm/dry Lymphatic: no adenopathy Progress - Progress Progress: Differential diagnosis: ACS, bowel obstruction, UTI, GERD among others. 01/08/20 18:43 Patient states she is markedly improved and symptoms have resolved after IV Zofr an and 1 L normal saline. Plan discharge home at this time and follow-up with PCP. I have discussed this plan of care with the patient and her and they voiced understanding and agreement with plan of care. Maksim Pressley M.D. #[id number] - Results/Orders Results/Orders: 01/08/20 17:36 Sodium Chloride 0.9% (Flush) [Saline Flush Syringe] 10 ml IV PRN PRN Laboratory Results - last 24 hr 01/08/20 01/08/20 01/08/20 17:45 17:45 18:10 WBC 4.3 L RBC 3.73 L Hgb 12.3 Hct 35.1 L MCV 94.0 MCH 33.0 H MCHC 35.1 RDW 14.5 Plt Count 94 L MPV 10.9 H Absolute Neuts (auto) 2.40 Absolute Lymphs (auto) 1.50 Absolute Monos (auto) 0.30 Absolute Eos (auto) 0.10 Absolute Basos (auto) 0.00 Neutrophils % 55.0 Lymphocytes % 34.7 Monocytes % 6.2 Eosinophils % 3.2 Basophils % 0.9 Sodium 132 L Potassium 3.1 L Chloride 98 L Carbon Dioxide 26 Anion Gap 11.1 L BUN 7 Creatinine 0.77 BUN/Creatinine Ratio 9.1 L Random Glucose 99 Serum Osmolality 262.5 L Calcium 8.7 Total Bilirubin 1.0 Direct Bilirubin 0.2 Indirect Bilirubin 0.8 AST 26 ALT 16 Alkaline Phosphatase 161 H Serum Total Protein 6.2 L Albumin 3.6 Lipase 34 Urine Color Yellow Urine Appearance Cloudy Urine pH 6.0 Ur Specific [place] 1.010 Urine Protein Negative Urine Glucose (UA) Negative Urine Ketones Negative Urine Blood Negative Urine Nitrite Negative Urine Bilirubin Negative Urine Urobilinogen 4.0 H Ur Leukocyte Esterase Negative Urine RBC 0 Urine WBC 0 Ur Epithelial Cells 5-10 Amorphous Sediment 1+ Urine Bacteria Rare Departure - Departure Clinical Impression: Hypokalemia Chest pain Qualifiers: Chest pain type: unspecified Qualified Code(s): R07.9 - Chest pain, unspecified Abdominal pain Qualifiers: Abdominal location: epigastric Qualified Code(s): R10.13 - Epigastric pain Time of Disposition: 18:46 Disposition: Discharge to Home or Self Care Condition: Good Departure Forms: ED Discharge - Pt. Copy, Patient Portal Self Enrollment Diet: resume usual diet Activity: increase activity as tolerated Referrals: LITA HAMMOND [Primary Care Provider] - 1-5 Days Prescriptions: Ondansetron [Ondansetron Odt] 4 mg PO Q6H #20 tab Home Medications: Ambulatory Orders Esomeprazole Magnesium [Nexium] 40 mg PO DAILY 10/18/18 Venlafaxine HCl 37.5 mg PO DAILY 10/18/18 Docusate Sodium 100 mg PO BID 11/04/18 Ferrous Gluconate [Fergon] 27 mg PO DAILY 11/04/18 Furosemide 40 mg PO DAILY 11/04/18 Gabapentin 600 mg PO BID 11/04/18 Armour-3 Fatty Acids [Armour 3] 1 cap PO DAILY 11/04/18 Risperidone 1 mg PO DAILY 11/04/18 Hyoscyamine Sulfate [Levsin] 0.125 mg PO Q8HRS #15 tab 01/05/19 Propranolol HCl [Inderal] 20 mg PO BID #60 tab 01/13/19 Potassium Chloride [K-Tab] 20 meq PO CURTIS-OTH-DAY 01/16/19 Tramadol HCl 50 mg PO Q4HR PRN #20 tab 01/18/19 Phenazopyridine HCl [Pyridium] 200 mg PO BID PRN #14 tab 01/27/19 predniSONE [Prednisone] 20 mg PO QAM #5 tab 03/15/19 Albuterol Sulfate [Albuterol Sulfate Hfa] 108 mcg IN Q4H #1 aer 07/12/19 predniSONE 60 mg PO DAILY #15 tab 07/12/19 Albuterol Inhaler [Ventolin Hfa Inhaler] 2 puff INH Q4H PRN 14 Days #1 inh 07/22/19 Polyethylene Glycol 3350 [Miralax] 17 gm PO BID PRN 20 Days #20 pckt 09/29/19 Ibuprofen [Motrin] 400 mg PO Q6H PRN #20 tab 01/04/20 Methocarbamol [Robaxin] 750 mg PO Q6H PRN #20 tab 01/04/20 Potassium Chloride Microencaps [Potassium Chloride Cr] 10 meq PO DAILY #4 tab 01/06/20 Ondansetron [Ondansetron Odt] 4 mg PO Q6H #20 tab 01/08/20
[2020-01-08] MEDS: SODIUM CHLORIDE 0.9% 1000ML 1,000 ML IVS ONE (17:49)
[2020-01-08] MEDS: ONDANSETRON INJ 4 MG/2 ML VIAL IV ONE (17:51)
[2020-01-08] MEDS: SODIUM CHLORIDE 0.9% (FLUSH) 10 ML SYG IV PRN (17:52)
[2020-01-08 19:11] VITALS: BP 155/60; TEMP 97.1; O2SAT 100
== END 2020-01-08 19:07 | disposition home or self-care (01) ==
LOC: ER 16:25
DX: E87.6 Hypokalemia (principal); R07.9 Chest pain, unspecified; R10.13 Epigastric pain; R53.1 Weakness; F17.200 Nicotine dependence, unspecified, uncomplicated
CPT/HCPCS: 36415; 80048; 80076; 81001; 83690; 85025; J2405; J7030

== ENCOUNTER 2020-01-09 14:09 | Emergency (ER) | payer OTHER ==
[2020-01-09] MEDS ORDERED: ACETAMINOPHEN 500 MG TAB PO ONE (14:19)
[2020-01-09] MEDS ORDERED: ASPIRIN (CHEWABLE) 81 MG TAB PO ONE (14:19)
[2020-01-09] MEDS ORDERED: SODIUM CHLORIDE 0.9% 1000ML 1,000 ML IVS ONE (14:19)
--- NOTE | 2020-01-09 14:56 | RAD ---
Procedure: XR CHEST 1 VIEW Exam Date: 01/09/2020 Ordering Provider: Kalin Hernandez Clinical Indication: pain Comparison: 01/06/2020 Findings: Cardiomediastinal silhouette is within normal limits. No focal lung consolidation. No pleural effusion. No pneumothorax. No acute osseous abnormality. Impression: 1. No acute abnormality in the chest. Electronically signed by: Jason Malik MD 01/09/2020 2:54 PM CDT
--- NOTE | 2020-01-09 15:00 | ED.PDOC ---
History of Present Illness - General Chief Complaint: Blood Pressure Problem Stated Complaint: chest discomfort Time Seen by Provider: 01/09/20 14:17 - History of Present Illness Initial Comments: 54 yo F PMH [facility] 4th visit this week appears disheveled wearing same clothes on all 4 visits at bedside both live at local hotel, presents to ED Police at bedside, whom the patient herself called because her landlaord called her a B&%$h this am between 7 and 8. Pleasant and smiling/entertaining singing in the department but does not appear intoxicated. Poor historian requires frequent redirection and has soiled her self with stool. Otherwise NAD singing 'what a friend we have in [place]' and 'Oh Jay you're so fine' to male nurse Jay taking care of patient. Pt. is not under arrest or in police custody. Not beligerent uncooperative or aggressive but is loud. Denies (through ) recent travel fever cough or contact with covid19 denies fever chills nausea vomiting diarrhea admits chest pain and sob denies diaphoresis. No change in diet rest bowel or bladder denies drinking admits smoking admits FH HTN DM has PMD for follow up no other c/o today. PPE worn-N95 surgical mask with attached face shield over N95 gloves and face shield over that Allergies/Adverse Reactions: Allergies Codeine Allergy (Unknown, Verified 01/06/20 07:41) Home Medications: Ambulatory Orders Esomeprazole Magnesium [Nexium] 40 mg PO DAILY 10/18/18 Venlafaxine HCl 37.5 mg PO DAILY 10/18/18 Docusate Sodium 100 mg PO BID 11/04/18 Ferrous Gluconate [Fergon] 27 mg PO DAILY 11/04/18 Furosemide 40 mg PO DAILY 11/04/18 Gabapentin 600 mg PO BID 11/04/18 [place]-3 Fatty Acids [[place] 3] 1 cap PO DAILY 11/04/18 Risperidone 1 mg PO DAILY 11/04/18 Hyoscyamine Sulfate [Levsin] 0.125 mg PO Q8HRS #15 tab 01/05/19 Propranolol HCl [Inderal] 20 mg PO BID #60 tab 01/13/19 Potassium Chloride [K-Tab] 20 meq PO CURTIS-OTH-DAY 01/16/19 Tramadol HCl 50 mg PO Q4HR PRN #20 tab 01/18/19 Phenazopyridine HCl [Pyridium] 200 mg PO BID PRN #14 tab 01/27/19 predniSONE [Prednisone] 20 mg PO QAM #5 tab 03/15/19 Albuterol Sulfate [Albuterol Sulfate Hfa] 108 mcg IN Q4H #1 aer 07/12/19 predniSONE 60 mg PO DAILY #15 tab 07/12/19 Albuterol Inhaler [Ventolin Hfa Inhaler] 2 puff INH Q4H PRN 14 Days #1 inh 07/22/19 Polyethylene Glycol 3350 [Miralax] 17 gm PO BID PRN 20 Days #20 pckt 09/29/19 Ibuprofen [Motrin] 400 mg PO Q6H PRN #20 tab 01/04/20 Methocarbamol [Robaxin] 750 mg PO Q6H PRN #20 tab 01/04/20 Potassium Chloride Microencaps [Potassium Chloride Cr] 10 meq PO DAILY #4 tab 01/06/20 Ondansetron [Ondansetron Odt] 4 mg PO Q6H #20 tab 01/08/20 Review of Systems - Review of Systems Constitutional: States: see HPI EENTM: States: see HPI Respiratory: States: see HPI Cardiology: States: see HPI Gastrointestinal/Abdominal: States: see HPI Genitourinary: States: see HPI Musculoskeletal: States: see HPI Skin: States: see HPI Neurological: States: see HPI Endocrine: States: see HPI Hematologic/Lymphatic: States: see HPI Past Medical History (General) - Patient Medical History Hx Seizures: No Hx Stroke: No Hx Dementia: No Hx Asthma: No Hx of COPD: No Hx Cardiac Disorders: No Hx Congestive Heart Failure: No Hx Pacemaker: No Hx Hypertension: No Hx Thyroid Disease: No Hx Diabetes: No Hx Gastroesophageal Reflux: Yes Hx Renal Disease: No Hx Cancer: No Hx of HIV: No Hx Hepatitis C: No Hx MRSA: No - Vaccination History Hx Tetanus, Diphtheria Vaccination: No Hx Influenza Vaccination: Yes Hx Pneumococcal Vaccination: No - Social History Hx Tobacco Use: Yes Hx Chewing Tobacco Use: No Hx Alcohol Use: No Hx Substance Use: No Hx Substance Use Treatment: No Hx Depression: Yes - Bipolar Hx Physical Abuse: No Hx Emotional Abuse: No Hx Suspected Abuse: No - Female History Patient : No - Menopause Family Medical History - Family History Mother Family History: Unknown Living Status: Unknown Hx Cardiac Disease: Yes - mom Hx Family;Other: bipolar disorder mom Physical Exam - Physical Exam General Appearance: No apparent distress Eyes, Ears, Nose, Throat Exam: normal ENT inspection Neck: non-tender, full range of motion Respiratory: no respiratory distress Cardiovascular/Chest: regular rate, rhythm Gastrointestinal/Abdominal: non tender, soft Rectal Exam: deferred Extremity: normal range of motion, non-tender Neurologic: no motor/sensory deficits Skin Exam: normal color Progress - Progress Progress: 01/09/20 15:13 A/P-Chest Pain SOB-iv bolus asa ekg cxr cbc cmp lipase ua trop reassess if unremarkable d/c follow up [facility] no prescriptions 01/09/20 16:43 Laboratory Tests 01/09/20 01/09/20 01/09/20 14:50 14:50 14:50 WBC 3.6 L RBC 3.85 L Hgb 12.7 Hct 37.0 MCV 96.2 MCH 33.0 H MCHC 34.2 RDW 14.8 H Plt Count 87 L MPV 11.0 H Absolute Neuts (auto) 2.10 Absolute Lymphs (auto) 1.10 Absolute Monos (auto) 0.30 Absolute Eos (auto) 0.10 Absolute Basos (auto) 0.00 Neutrophils % 58.0 Lymphocytes % 30.2 Monocytes % 8.5 Eosinophils % 2.2 Basophils % 1.1 PT 10.4 INR 1.05 PTT (SP) 25.1 Sodium 138 Potassium 3.0 L Chloride 104 Carbon Dioxide 27 Anion Gap 10.0 L BUN < 5 L Creatinine 0.53 L D BUN/Creatinine Ratio 9.4 L Random Glucose 73 Serum Osmolality 271.2 L Calcium 8.6 Total Bilirubin 1.0 AST 27 ALT 16 Alkaline Phosphatase 153 H Troponin I Serum Total Protein 6.0 L Albumin 3.3 Globulin 2.7 Albumin/Globulin Ratio 1.2 Lipase 35 Urine Color Urine Appearance Urine pH Ur Specific Marshall Urine Protein Urine Glucose (UA) Urine Ketones Urine Blood Urine Nitrite Urine Bilirubin Urine Urobilinogen Ur Leukocyte Esterase Urine RBC Urine WBC Ur Epithelial Cells Urine Bacteria Salicylates Urine Opiates Screen Acetaminophen < 10.0 L Urine Barbiturates Ur Phencyclidine Scrn U Amphetamin/Meth Scrn U Benzodiazepines Scrn U Cocaine Metab Screen U Cannabinoids Screen Ethyl Alcohol 01/09/20 01/09/20 01/09/20 14:50 14:50 15:03 WBC RBC Hgb Hct MCV MCH MCHC RDW Plt Count MPV Absolute Neuts (auto) Absolute Lymphs (auto) Absolute Monos (auto) Absolute Eos (auto) Absolute Basos (auto) Neutrophils % Lymphocytes % Monocytes % Eosinophils % Basophils % PT INR PTT (SP) Sodium Potassium Chloride Carbon Dioxide Anion Gap BUN Creatinine BUN/Creatinine Ratio Random Glucose Serum Osmolality Calcium Total Bilirubin AST ALT Alkaline Phosphatase Troponin I < 0.02 Serum Total Protein Albumin Globulin Albumin/Globulin Ratio Lipase Urine Color Urine Appearance Urine pH Ur Specific Marshall Urine Protein Urine Glucose (UA) Urine Ketones Urine Blood Urine Nitrite Urine Bilirubin Urine Urobilinogen Ur Leukocyte Esterase Urine RBC Urine WBC Ur Epithelial Cells Urine Bacteria Salicylates Urine Opiates Screen Negative Acetaminophen Urine Barbiturates Negative Ur Phencyclidine Scrn Negative U Amphetamin/Meth Scrn Negative U Benzodiazepines Scrn Negative U Cocaine Metab Screen Negative U Cannabinoids Screen Negative Ethyl Alcohol < 5.40 01/09/20 01/09/20 15:03 16:17 WBC RBC Hgb Hct MCV MCH MCHC RDW Plt Count MPV Absolute Neuts (auto) Absolute Lymphs (auto) Absolute Monos (auto) Absolute Eos (auto) Absolute Basos (auto) Neutrophils % Lymphocytes % Monocytes % Eosinophils % Basophils % PT INR PTT (SP) Sodium Potassium Chloride Carbon Dioxide Anion Gap BUN Creatinine BUN/Creatinine Ratio Random Glucose Serum Osmolality Calcium Total Bilirubin AST ALT Alkaline Phosphatase Troponin I < 0.02 Serum Total Protein Albumin Globulin Albumin/Globulin Ratio Lipase Urine Color Yellow Urine Appearance Clear Urine pH 5.5 Ur Specific Marshall <= 1.005 Urine Protein Negative Urine Glucose (UA) Negative Urine Ketones Negative Urine Blood Trace-intact H Urine Nitrite Negative Urine Bilirubin Negative Urine Urobilinogen 1.0 Ur Leukocyte Esterase Negative Urine RBC 0-1 Urine WBC 0-1 Ur Epithelial Cells 1-3 Urine Bacteria Rare Salicylates Urine Opiates Screen Acetaminophen Urine Barbiturates Ur Phencyclidine Scrn U Amphetamin/Meth Scrn U Benzodiazepines Scrn U Cocaine Metab Screen U Cannabinoids Screen Ethyl Alcohol Will d/c follow up [facility] - Results/Orders Results/Orders: EKG-non specific TW changes No STEMI Sinus Bradycardia 57bpm Procedure: XR CHEST 1 VIEW Exam Date: 01/09/2020 Ordering Provider: Kalin Hernandez Clinical Indication: pain Comparison: 01/06/2020 Findings: Cardiomediastinal silhouette is within normal limits. No focal lung consolidation. No pleural effusion. No pneumothorax. No acute osseous abnormality. Impression: 1. No acute abnormality in the chest. Electronically signed by: Jason Malik MD 01/09/2020 2:54 PM CDT Departure - Departure Clinical Impression: SOB (shortness of breath) Chest pain Qualifiers: Chest pain type: unspecified Qualified Code(s): R07.9 - Chest pain, unspecified Disposition: Discharge to Home or Self Care Condition: Good Departure Forms: ED Discharge - Pt. Copy, Patient Portal Self Enrollment Instructions: DI for High Blood Pressure Referrals: LITA HAMMOND [Primary Care Provider] - 1-2 Weeks Home Medications: Ambulatory Orders Esomeprazole Magnesium [Nexium] 40 mg PO DAILY 10/18/18 Venlafaxine HCl 37.5 mg PO DAILY 10/18/18 Docusate Sodium 100 mg PO BID 11/04/18 Ferrous Gluconate [Fergon] 27 mg PO DAILY 11/04/18 Furosemide 40 mg PO DAILY 11/04/18 Gabapentin 600 mg PO BID 11/04/18 [place]-3 Fatty Acids [[place] 3] 1 cap PO DAILY 11/04/18 Risperidone 1 mg PO DAILY 11/04/18 Hyoscyamine Sulfate [Levsin] 0.125 mg PO Q8HRS #15 tab 01/05/19 Propranolol HCl [Inderal] 20 mg PO BID #60 tab 01/13/19 Potassium Chloride [K-Tab] 20 meq PO CURTIS-OTH-DAY 01/16/19 Tramadol HCl 50 mg PO Q4HR PRN #20 tab 01/18/19 Phenazopyridine HCl [Pyridium] 200 mg PO BID PRN #14 tab 01/27/19 predniSONE [Prednisone] 20 mg PO QAM #5 tab 03/15/19 Albuterol Sulfate [Albuterol Sulfate Hfa] 108 mcg IN Q4H #1 aer 07/12/19 predniSONE 60 mg PO DAILY #15 tab 07/12/19 Albuterol Inhaler [Ventolin Hfa Inhaler] 2 puff INH Q4H PRN 14 Days #1 inh 07/22/19 Polyethylene Glycol 3350 [Miralax] 17 gm PO BID PRN 20 Days #20 pckt 09/29/19 Ibuprofen [Motrin] 400 mg PO Q6H PRN #20 tab 01/04/20 Methocarbamol [Robaxin] 750 mg PO Q6H PRN #20 tab 01/04/20 Potassium Chloride Microencaps [Potassium Chloride Cr] 10 meq PO DAILY #4 tab 01/06/20 Ondansetron [Ondansetron Odt] 4 mg PO Q6H #20 tab 01/08/20
[2020-01-09] MEDS ORDERED: POTASSIUM CHLORIDE 20 MEQ TAB PO ONE (16:50)
[2020-01-09 17:15] VITALS: BP 112/56; TEMP 97.9; O2SAT 99
== END 2020-01-09 17:15 | disposition home or self-care (01) ==
LOC: ER 14:09
DX: R07.89 Other chest pain (principal); R06.02 Shortness of breath; E87.6 Hypokalemia; F17.200 Nicotine dependence, unspecified, uncomplicated
CPT/HCPCS: 71045; 80053; 80307; 80320; 80329; 81001; 83690; 84484; 85025; 85610; 85730; 93005; J7030

== ENCOUNTER 2020-02-16 19:24 | Emergency (ER) | payer OTHER ==
[2020-02-16 19:48] VITALS: BP 119/62; TEMP 98.5; O2SAT 99
--- NOTE | 2020-02-16 20:06 | ED.PDOC ---
History of Present Illness - General Chief Complaint: General Stated Complaint: lower leg swelling, chronic Time Seen by Provider: 02/16/20 20:04 Additional Information: Patient is a 54-year-old female who presents to the ED with chief complaint of "I need a pain shot". Patient indicates that 2 days ago she bumped her right forearm and then last night she bumped her left knee and she needs pain medication for these contusions. Patient denies nausea, vomiting, fever, chills, chest pain, shortness of breath, abdominal pain, dysuria. Patient complains of chronic edema to her lower legs and her edema today is no worse than baseline. Patient is a very poor historian and history is otherwise unknown. - History of Present Illness Allergies/Adverse Reactions: Allergies Codeine Allergy (Unknown, Verified 02/16/20 19:49) Home Medications: Ambulatory Orders Esomeprazole Magnesium [Nexium] 40 mg PO DAILY 10/18/18 Venlafaxine HCl 37.5 mg PO DAILY 10/18/18 Docusate Sodium 100 mg PO BID 11/04/18 Ferrous Gluconate [Fergon] 27 mg PO DAILY 11/04/18 Furosemide 40 mg PO DAILY 11/04/18 Gabapentin 600 mg PO BID 11/04/18 [place]-3 Fatty Acids [[place] 3] 1 cap PO DAILY 11/04/18 Risperidone 1 mg PO DAILY 11/04/18 Hyoscyamine Sulfate [Levsin] 0.125 mg PO Q8HRS #15 tab 01/05/19 Propranolol HCl [Inderal] 20 mg PO BID #60 tab 01/13/19 Potassium Chloride [K-Tab] 20 meq PO CURTIS-OTH-DAY 01/16/19 Tramadol HCl 50 mg PO Q4HR PRN #20 tab 01/18/19 Phenazopyridine HCl [Pyridium] 200 mg PO BID PRN #14 tab 01/27/19 predniSONE [Prednisone] 20 mg PO QAM #5 tab 03/15/19 Albuterol Sulfate [Albuterol Sulfate Hfa] 108 mcg IN Q4H #1 aer 07/12/19 predniSONE 60 mg PO DAILY #15 tab 07/12/19 Albuterol Inhaler [Ventolin Hfa Inhaler] 2 puff INH Q4H PRN 14 Days #1 inh 07/22/19 Polyethylene Glycol 3350 [Miralax] 17 gm PO BID PRN 20 Days #20 pckt 09/29/19 Ibuprofen [Motrin] 400 mg PO Q6H PRN #20 tab 01/04/20 Methocarbamol [Robaxin] 750 mg PO Q6H PRN #20 tab 01/04/20 Potassium Chloride Microencaps [Potassium Chloride Cr] 10 meq PO DAILY #4 tab 01/06/20 Ondansetron [Ondansetron Odt] 4 mg PO Q6H #20 tab 01/08/20 Ibuprofen 800 mg PO Q8H PRN #20 tab 02/16/20 Review of Systems - Review of Systems Constitutional: Denies: chills, fever Respiratory: Denies: cough, short of breath Cardiology: Denies: chest pain, palpitations Gastrointestinal/Abdominal: Denies: abdominal pain, nausea, vomiting Genitourinary: Denies: dysuria Musculoskeletal: States: see HPI Skin: States: lesions - Chronic All other Systems: Reviewed and Negative Past Medical History (General) - Patient Medical History Hx Seizures: No Hx Stroke: No Hx Dementia: No Hx Asthma: No Hx of COPD: No Hx Cardiac Disorders: No Hx Congestive Heart Failure: No Hx Pacemaker: No Hx Hypertension: No Hx Thyroid Disease: No Hx Diabetes: No Hx Gastroesophageal Reflux: Yes Hx Renal Disease: No Hx Cancer: No Hx of HIV: No Hx Hepatitis C: No Hx MRSA: No Surgical History: noncontributory - Vaccination History Hx Tetanus, Diphtheria Vaccination: No Hx Influenza Vaccination: Yes Hx Pneumococcal Vaccination: No - Social History Hx Tobacco Use: Yes Hx Chewing Tobacco Use: No Hx Alcohol Use: No Hx Substance Use: No Hx Substance Use Treatment: No Hx Depression: Yes - Bipolar Hx Physical Abuse: No Hx Emotional Abuse: No Hx Suspected Abuse: No - Female History Patient : No - Menopause Family Medical History - Family History Mother Family History: Unknown Living Status: Unknown Hx Cardiac Disease: Yes - mom Hx Family;Other: bipolar disorder mom Physical Exam - Physical Exam General Appearance: Alert, Comfortable, No apparent distress, Unkempt, Other - Disheveled Neck: supple, normal inspection Respiratory: lungs clear, normal breath sounds, no respiratory distress, no accessory muscle use Cardiovascular/Chest: regular rate, rhythm, no gallop, no JVD, no murmur Gastrointestinal/Abdominal: normal bowel sounds, non tender, soft Extremity: other - Patient with scabbed lesions to bilateral arms that appear to be from chronic excoriation. Patient has a well-healed skin graft site to her right forearm. Neither arm has any evidence of trauma and there is no ecchymoses edema or tenderness to palpation. Patient with brawny edema to bilateral low Progress - Progress Progress: 02/16/20 20:10 Patient presents with only a vague concern of "I need a pain shot". Patient has no obvious trauma that requires imaging and she is easily ambulatory with a normal gait. I discussed with patient that there is no indication today for laboratory testing or imaging and patient agrees I will give Toradol in the ED and DC with Motrin and patient to follow-up with her PCP. Patient's vital signs are stable and normal. Of note, EMR reviewed and patient with multiple ED visits for random and varied complaints. Departure - Departure Clinical Impression: Contusion Qualifiers: Encounter type: initial encounter Contusion area: forearm Laterality: right Qualified Code(s): S50.11XA - Contusion of right forearm, initial encounter Time of Disposition: 20:15 Disposition: Discharge to Home or Self Care Departure Forms: ED Discharge - Pt. Copy, Patient Portal Self Enrollment Instructions: Contusion (DC) Activity: increase activity as tolerated Referrals: LITA HAMMOND [Primary Care Provider] - 1 Week Prescriptions: Ibuprofen 800 mg PO Q8H PRN #20 tab PRN Reason: Pain Home Medications: Ambulatory Orders Esomeprazole Magnesium [Nexium] 40 mg PO DAILY 10/18/18 Venlafaxine HCl 37.5 mg PO DAILY 10/18/18 Docusate Sodium 100 mg PO BID 11/04/18 Ferrous Gluconate [Fergon] 27 mg PO DAILY 11/04/18 Furosemide 40 mg PO DAILY 11/04/18 Gabapentin 600 mg PO BID 11/04/18 [place]-3 Fatty Acids [[place] 3] 1 cap PO DAILY 11/04/18 Risperidone 1 mg PO DAILY 11/04/18 Hyoscyamine Sulfate [Levsin] 0.125 mg PO Q8HRS #15 tab 01/05/19 Propranolol HCl [Inderal] 20 mg PO BID #60 tab 01/13/19 Potassium Chloride [K-Tab] 20 meq PO CURTIS-OTH-DAY 01/16/19 Tramadol HCl 50 mg PO Q4HR PRN #20 tab 01/18/19 Phenazopyridine HCl [Pyridium] 200 mg PO BID PRN #14 tab 01/27/19 predniSONE [Prednisone] 20 mg PO QAM #5 tab 03/15/19 Albuterol Sulfate [Albuterol Sulfate Hfa] 108 mcg IN Q4H #1 aer 07/12/19 predniSONE 60 mg PO DAILY #15 tab 07/12/19 Albuterol Inhaler [Ventolin Hfa Inhaler] 2 puff INH Q4H PRN 14 Days #1 inh 07/22/19 Polyethylene Glycol 3350 [Miralax] 17 gm PO BID PRN 20 Days #20 pckt 09/29/19 Ibuprofen [Motrin] 400 mg PO Q6H PRN #20 tab 01/04/20 Methocarbamol [Robaxin] 750 mg PO Q6H PRN #20 tab 01/04/20 Potassium Chloride Microencaps [Potassium Chloride Cr] 10 meq PO DAILY #4 tab 01/06/20 Ondansetron [Ondansetron Odt] 4 mg PO Q6H #20 tab 01/08/20 Ibuprofen 800 mg PO Q8H PRN #20 tab 02/16/20
[2020-02-16] MEDS ORDERED: KETOROLAC TROMETHAMINE INJ 60 MG/2 ML VIAL IM ONE (20:12)
[2020-02-17] MEDS ORDERED: KCL 40MEQ/NS 1,000 ML IVS ONE (13:24)
== END 2020-02-16 20:22 | disposition home or self-care (01) ==
LOC: ER 19:24
DX: S50.11XA Contusion of right forearm, initial encounter (principal); R60.0 Localized edema; K21.9 Gastro-esophageal reflux disease without esophagitis; F31.9 Bipolar disorder, unspecified; W22.8XXA Striking against or struck by other objects, initial encounter; Y92.9 Unspecified place or not applicable; Z87.891 Personal history of nicotine dependence; Z79.899 Other long term (current) drug therapy

== ENCOUNTER 2020-02-17 11:50 | Emergency (ER) | payer OTHER ==
--- NOTE | 2020-02-17 12:11 | ED.PDOC ---
History of Present Illness - General Chief Complaint: Behavioral / Psych Stated Complaint: "My dog got ran over", distraught, hearing voices Time Seen by Provider: 02/17/20 12:03 - History of Present Illness Initial Comments: 54 yo F with hx and frequent er visits comes in with c/c of anxiety, thoughts of hurting herself and chronic liver pain. States that her dog got ran over. She started hitting her self in the head and legs. brought her in for evaluation. States she recently had increase in antipsychotics medication. Denies N/V/CP/SOB. Had chronic right sided pain, but denies any currently. Also states her arms are itchy. Denies any OD. States her meds are given to her by her which are prefilled at a clinic. Took normal medication today with the addition of over the counter pain medication but does not no which one. took at 10 AM today. Patient at baseline cognitive level per . States they are very stressed because they are going to get kicked out her house because she keeps hitting herself. Denies T/D/E. Allergies/Adverse Reactions: Allergies Codeine Allergy (Unknown, Verified 02/16/20 19:49) Home Medications: Ambulatory Orders Esomeprazole Magnesium [Nexium] 40 mg PO DAILY 10/18/18 Venlafaxine HCl 37.5 mg PO DAILY 10/18/18 Docusate Sodium 100 mg PO BID 11/04/18 Ferrous Gluconate [Fergon] 27 mg PO DAILY 11/04/18 Furosemide 40 mg PO DAILY 11/04/18 Gabapentin 600 mg PO BID 11/04/18 [place]-3 Fatty Acids [[place] 3] 1 cap PO DAILY 11/04/18 Risperidone 1 mg PO DAILY 11/04/18 Hyoscyamine Sulfate [Levsin] 0.125 mg PO Q8HRS #15 tab 01/05/19 Propranolol HCl [Inderal] 20 mg PO BID #60 tab 01/13/19 Potassium Chloride [K-Tab] 20 meq PO CURTIS-OTH-DAY 01/16/19 Tramadol HCl 50 mg PO Q4HR PRN #20 tab 01/18/19 Phenazopyridine HCl [Pyridium] 200 mg PO BID PRN #14 tab 01/27/19 predniSONE [Prednisone] 20 mg PO QAM #5 tab 03/15/19 Albuterol Sulfate [Albuterol Sulfate Hfa] 108 mcg IN Q4H #1 aer 07/12/19 predniSONE 60 mg PO DAILY #15 tab 07/12/19 Albuterol Inhaler [Ventolin Hfa Inhaler] 2 puff INH Q4H PRN 14 Days #1 inh 07/22/19 Polyethylene Glycol 3350 [Miralax] 17 gm PO BID PRN 20 Days #20 pckt 09/29/19 Ibuprofen [Motrin] 400 mg PO Q6H PRN #20 tab 01/04/20 Methocarbamol [Robaxin] 750 mg PO Q6H PRN #20 tab 01/04/20 Potassium Chloride Microencaps [Potassium Chloride Cr] 10 meq PO DAILY #4 tab 01/06/20 Ondansetron [Ondansetron Odt] 4 mg PO Q6H #20 tab 01/08/20 Ibuprofen 800 mg PO Q8H PRN #20 tab 02/16/20 Magnesium [Magnesium 400 mg] 1 tab PO DAILY #30 tab 02/17/20 Potassium Chloride [Potassium Chloride ER] 20 meq PO DAILY #30 tab 02/17/20 Review of Systems - Review of Systems Constitutional: Denies: fever, malaise EENTM: Denies: eye pain, blurred vision, tearing Respiratory: Denies: cough, short of breath, stridor Cardiology: Denies: chest pain, edema, palpitations, syncope Gastrointestinal/Abdominal: Denies: abdominal pain, diarrhea, nausea, vomiting Genitourinary: Denies: discharge, dysuria, frequency, pain Musculoskeletal: Denies: back pain, joint pain, muscle stiffness Skin: States: rash Neurological: States: anxiety, depressed, emotional problems. Denies: headache, numbness, paresthesia, seizure Endocrine: Denies: excessive sweating, increased hunger, increased thirst Hematologic/Lymphatic: Denies: anemia, blood clots All other Systems: Reviewed and Negative Past Medical History (General) - Patient Medical History Hx Seizures: No Hx Stroke: No Hx Dementia: No Hx Asthma: No Hx of COPD: No Hx Cardiac Disorders: No Hx Congestive Heart Failure: No Hx Pacemaker: No Hx Hypertension: No Hx Thyroid Disease: No Hx Diabetes: No Hx Gastroesophageal Reflux: Yes Hx Renal Disease: No Hx Cancer: No Hx of HIV: No Hx Hepatitis C: No Hx MRSA: No - Vaccination History Hx Tetanus, Diphtheria Vaccination: No Hx Influenza Vaccination: Yes Hx Pneumococcal Vaccination: No - Social History Hx Tobacco Use: Yes Hx Chewing Tobacco Use: No Hx Alcohol Use: No Hx Substance Use: No Hx Substance Use Treatment: No Hx Depression: Yes - Bipolar Hx Physical Abuse: No Hx Emotional Abuse: No Hx Suspected Abuse: No - Female History Patient : No - Menopause Family Medical History - Family History Mother Family History: Unknown Living Status: Unknown Hx Cardiac Disease: Yes - mom Hx Family;Other: bipolar disorder mom Physical Exam - Physical Exam General Appearance: Alert, Anxious, Restless, Other - dishevled Eyes, Ears, Nose, Throat Exam: normal ENT inspection, TMs normal Neck: non-tender, full range of motion, supple, normal inspection Respiratory: chest non-tender, lungs clear, normal breath sounds, no respiratory distress, no accessory muscle use Cardiovascular/Chest: normal peripheral pulses, regular rate, rhythm, no edema, no gallop, no JVD, no murmur Peripheral Pulses: radial,right: 2+ Gastrointestinal/Abdominal: non tender, soft, no organomegaly, no pulsatile mass, abnormal bowel sounds Extremities Exam: non-tender, normal range of motion, no evidence of injury, no edema Neurological: alert, anxious Appearance: disheveled Behavior/Eye Contact/Speech: cooperative, other - Changes story frequently. tardive dyskinesia, lip smacking Thoughts/Hallucinations: no apparent hallucination Skin Exam: other - significant ezcema vs psorasis , rash Progress - Progress Progress: patient has had multiple admissions, asking to be sent to [place], then wants to be admitted then wants to go home. CBC, CMP, show evidence of hypokalemia and mild hyponatremia. Leukopenia and thrombocytopenia consistent with previous labs. She was given 1L NS bolus with 20 meq K. As well as mag oxide 400 mg. Patient states she is compliant with medication, as she takes, K at home. EKG shows sinus bradycardia, with QT 536 Prolong qt could be from chronic psychiatric medication vs low potassium; however, when corrected for rate it was 425. Acetaminophen level was elevated at 35, repeat at 4 hours after ingestion was 27. Salicylate, drug screen, etoh unremarkable. patient given 0.5 mg po ativan, and calmed down significantly. Patient was deemed medically stable. Guillermina was consulted. Evaluated patient and states she did not need to be admitted, recommend respite care. patient refused. encourage patient to go, but admit. She does not appear incapable of making decision for self at this time. The data reviewed when caring for this patient included: nurse notes etc. The history and assessments from nurses notes were reviewed and considered, and the patient's home medication list was also reviewed and considered. My assessment and the results of testing completed here in the ED were discussed with the patient/family. patient currently declines SI/HI. Denies hallucinations. Written instructions were given to repeat labs in Am as well as medication change recommendations. All questions were answered, and they express understanding of my assessment and the plan. They have been instructed to return if their symptoms worsen, and have been asked to follow up with their primary care physician to recheck today's presenting complaint. Billing code 801 02/17/20 16:35 02/17/20 19:19 02/17/20 19:21 Departure - Departure Clinical Impression: Hypokalemia, Anxiety, Hypokalemia due to loss of potassium, Psychological disorder Disposition: Discharge to Home or Self Care Departure Forms: ED Discharge - Pt. Copy, Patient Portal Self Enrollment Instructions: DI for Psychosis Referrals: LITA HAMMOND [Primary Care Provider] - 1-2 Weeks Prescriptions: Magnesium [Magnesium 400 mg] 1 tab PO DAILY #30 tab Potassium Chloride [Potassium Chloride ER] 20 meq PO DAILY #30 tab Home Medications: Ambulatory Orders Esomeprazole Magnesium [Nexium] 40 mg PO DAILY 10/18/18 Venlafaxine HCl 37.5 mg PO DAILY 10/18/18 Docusate Sodium 100 mg PO BID 11/04/18 Ferrous Gluconate [Fergon] 27 mg PO DAILY 11/04/18 Furosemide 40 mg PO DAILY 11/04/18 Gabapentin 600 mg PO BID 11/04/18 [place]-3 Fatty Acids [[place] 3] 1 cap PO DAILY 11/04/18 Risperidone 1 mg PO DAILY 11/04/18 Hyoscyamine Sulfate [Levsin] 0.125 mg PO Q8HRS #15 tab 01/05/19 Propranolol HCl [Inderal] 20 mg PO BID #60 tab 01/13/19 Potassium Chloride [K-Tab] 20 meq PO CURTIS-OTH-DAY 01/16/19 Tramadol HCl 50 mg PO Q4HR PRN #20 tab 06/27/19 Phenazopyridine HCl [Pyridium] 200 mg PO BID PRN #14 tab 01/27/19 predniSONE [Prednisone] 20 mg PO QAM #5 tab 03/15/19 Albuterol Sulfate [Albuterol Sulfate Hfa] 108 mcg IN Q4H #1 aer 07/12/19 predniSONE 60 mg PO DAILY #15 tab 07/12/19 Albuterol Inhaler [Ventolin Hfa Inhaler] 2 puff INH Q4H PRN 14 Days #1 inh 07/22/19 Polyethylene Glycol 3350 [Miralax] 17 gm PO BID PRN 20 Days #20 pckt 09/29/19 Ibuprofen [Motrin] 400 mg PO Q6H PRN #20 tab 01/04/20 Methocarbamol [Robaxin] 750 mg PO Q6H PRN #20 tab 01/04/20 Potassium Chloride Microencaps [Potassium Chloride Cr] 10 meq PO DAILY #4 tab 01/06/20 Ondansetron [Ondansetron Odt] 4 mg PO Q6H #20 tab 01/08/20 Ibuprofen 800 mg PO Q8H PRN #20 tab 02/16/20 Magnesium [Magnesium 400 mg] 1 tab PO DAILY #30 tab 02/17/20 Potassium Chloride [Potassium Chloride ER] 20 meq PO DAILY #30 tab 02/17/20 Additional Instructions: stop furosemide until evaluated by primary care physician. Caution with antipsychotics, recommend repeat Mag and K levels in AM. Follow up with PCP tomorrow.
[2020-02-17] MEDS ORDERED: LORazepam 0.5 MG TAB PO ONE (12:13)
[2020-02-17] MEDS ORDERED: KCL 40MEQ/NS 1,000 ML IVS PRN (13:18)
[2020-02-17] MEDS ORDERED: HYDROCORTISONE 1% CREAM 30 GM TUBE TOP PRN (15:27)
[2020-02-17] MEDS ORDERED: MAGNESIUM OXIDE 400 MG TAB PO SCH (17:00)
[2020-02-17] MEDS ORDERED: POTASSIUM CHLORIDE 20 MEQ TAB PO ONE (18:16)
[2020-02-17 19:11] VITALS: O2SAT 98
[2020-02-17 19:41] VITALS: BP 129/53; TEMP 97.2
== END 2020-02-17 19:35 | disposition home or self-care (01) ==
LOC: ER 11:50
DX: F41.9 Anxiety disorder, unspecified (principal); E87.6 Hypokalemia; F31.9 Bipolar disorder, unspecified; R00.1 Bradycardia, unspecified; L29.9 Pruritus, unspecified; G89.29 Other chronic pain; K21.9 Gastro-esophageal reflux disease without esophagitis; Z87.891 Personal history of nicotine dependence; Z79.899 Other long term (current) drug therapy; Z88.5 Allergy status to narcotic agent
CPT/HCPCS: 36415; 80053; 80307; 80320; 80329; 81001; 82140; 84132; 84443; 85025; 93005; J3480

== ENCOUNTER 2020-08-20 04:00 | Emergency (ER) | payer OTHER ==
[2020-08-20] MEDS ORDERED: CYCLOBENZAPRINE HCL 10 MG TAB PO ONE (04:35)
--- NOTE | 2020-08-20 04:48 | ED.PDOC ---
History of Present Illness - General Chief Complaint: General Stated Complaint: Leg cramps Time Seen by Provider: 08/20/20 04:35 Source: patient, RN notes reviewed, Vital Signs reviewed Exam Limitations: no limitations - History of Present Illness Initial Comments: Pt presents to ED with 2 day h/o leg cramps in bilateral calves. States she has been more ctive than usual this week. Has had intermitent cramps in bilateral calves x 2 days. She denies swelling, CP, SOB or history of DVT. Also reports h/o chronic psoriasis that is causing her pain to lower back. She does have scaly rash to arms, legs and no with no surrounding erythema to suggest cellulitis. Allergies/Adverse Reactions: Allergies Codeine Allergy (Unknown, Verified 03/12/20 18:17) Home Medications: Ambulatory Orders Esomeprazole Magnesium [Nexium] 40 mg PO DAILY 10/18/18 Ferrous Gluconate [Fergon] 27 mg PO DAILY 11/04/18 Furosemide 40 mg PO DAILY 11/04/18 Gabapentin 600 mg PO BID 11/04/18 [place]-3 Fatty Acids [[place] 3] 1 cap PO DAILY 11/04/18 Polyethylene Glycol 3350 [Miralax] 17 gm PO BID PRN 20 Days #20 pckt 09/29/19 Potassium Chloride [Potassium Chloride ER] 20 meq PO DAILY #30 tab 02/17/20 Prednisone 10 mg PO DAILY #20 tab 03/11/20 Sulfamethoxazole-Trimethoprim [Bactrim Ds 800-160 mg] 1 tab PO BID 5 Days #10 tab 03/12/20 Cyclobenzaprine HCl [Flexeril] 10 mg PO Q8H PRN #15 tab 08/20/20 Review of Systems - Review of Systems Constitutional: Denies: chills, fever EENTM: Denies: blurred vision, nose congestion Respiratory: Denies: cough, short of breath Cardiology: Denies: chest pain, palpitations, syncope Gastrointestinal/Abdominal: Denies: abdominal pain, nausea Musculoskeletal: Denies: neck pain Skin: States: see HPI Neurological: Denies: headache, paresthesia All other Systems: Reviewed and Negative Past Medical History (General) - Patient Medical History Hx Seizures: No Hx Stroke: No Hx Dementia: No Hx Asthma: No Hx of COPD: No Hx Cardiac Disorders: No Hx Congestive Heart Failure: No Hx Pacemaker: No Hx Hypertension: No Hx Thyroid Disease: No Hx Diabetes: No Hx Gastroesophageal Reflux: No Hx Renal Disease: No Hx Cancer: No Hx of HIV: No Hx Hepatitis C: No Hx MRSA: No Surgical History: cholecystectomy - Vaccination History Hx Tetanus, Diphtheria Vaccination: No Hx Influenza Vaccination: No Hx Pneumococcal Vaccination: No - Social History Hx Tobacco Use: Yes - Pack and a half a day Hx Chewing Tobacco Use: No Hx Alcohol Use: No Hx Substance Use: No Hx Substance Use Treatment: No Hx Depression: Yes Feels Threatened In Home Enviroment: No Feels Threatened In a Relationship: No Hx Physical Abuse: No Hx Emotional Abuse: No Hx Suspected Abuse: No - Female History Patient is a Female of Child Bearing Age (10 -59 yrs old): Yes Patient : No - Triage Comment ED Triage Comment: The patient walked from the ER wating room and was placed in ER bed 2. She was alert and oriented times 4 and complained of bilaterail calf cramping and pain. She also complained of pain on her back from her Psoriasis. She had large areas of noted Psoriasis on all extremites, torso and back. She had no other noted complaints at the time of assessment. Family Medical History - Family History Mother Family History: Unknown Living Status: Unknown Hx Cardiac Disease: Yes - mom Hx Family;Other: bipolar disorder mom Physical Exam - Physical Exam General Appearance: Alert, Comfortable, No apparent distress Neck: non-tender, full range of motion, supple Respiratory: chest non-tender, lungs clear, normal breath sounds, no respiratory distress Cardiovascular/Chest: regular rate, rhythm, no edema Peripheral Pulses: dorsalis pedis,right: 2+, dorsalis pedis,left: 2+, posterior tibialis,right: 2+, posterior tibialis,left: 2+ Gastrointestinal/Abdominal: non tender, soft, no pulsatile mass Back Exam: no vertebral tenderness Extremity: other - Bilateral calves have no TTP and no edema. Good distal pulses Skin Exam: other - Scaly rash to trunk and extremities with no erythema, fluctuance or drainage. Progress - Progress Progress: 08/20/20 04:50 Pt has BLE muscl cramps. No sign of DVT at this time. Will increase oral potassium as supplement or bananas. No recent GI losses or illness. Pt has chronic psoriasis and will continue topical cream. I have recommended she f/u with her PCP and a bucket turner in 1-2 days for recheck. SRP given. Departure - Departure Clinical Impression: Leg cramps, Psoriasis Time of Disposition: 04:53 Disposition: Discharge to Home or Self Care Condition: Good Departure Forms: ED Discharge - Pt. Copy, Patient Portal Self Enrollment Instructions: Muscle Spasms (DC) Diet: resume usual diet Activity: increase activity as tolerated Referrals: LITA HAMMOND [Primary Care Provider] - 1-2 Days Prescriptions: Cyclobenzaprine HCl [Flexeril] 10 mg PO Q8H PRN #15 tab PRN Reason: Mild To Moderate Pain Home Medications: Ambulatory Orders Esomeprazole Magnesium [Nexium] 40 mg PO DAILY 10/18/18 Ferrous Gluconate [Fergon] 27 mg PO DAILY 11/04/18 Furosemide 40 mg PO DAILY 11/04/18 Gabapentin 600 mg PO BID 11/04/18 [place]-3 Fatty Acids [[place] 3] 1 cap PO DAILY 11/04/18 Polyethylene Glycol 3350 [Miralax] 17 gm PO BID PRN 20 Days #20 pckt 09/29/19 Potassium Chloride [Potassium Chloride ER] 20 meq PO DAILY #30 tab 02/17/20 Prednisone 10 mg PO DAILY #20 tab 03/11/20 Sulfamethoxazole-Trimethoprim [Bactrim Ds 800-160 mg] 1 tab PO BID 5 Days #10 tab 03/12/20 Cyclobenzaprine HCl [Flexeril] 10 mg PO Q8H PRN #15 tab 08/20/20
[2020-08-20 04:57] VITALS: BP 136/72; TEMP 97; O2SAT 99
== END 2020-08-20 04:57 | disposition home or self-care (01) ==
LOC: ER 04:00
DX: R25.2 Cramp and spasm (principal); L40.9 Psoriasis, unspecified; F32.9 Major depressive disorder, single episode, unspecified; Z79.899 Other long term (current) drug therapy; Z88.5 Allergy status to narcotic agent